=== PATIENT | male | born 1960 | race Caucasian/White ===

== ENCOUNTER 2018-07-09 10:59 | Emergency (ER) | payer OTHER, SELFPAY ==
[2018-07-09 11:55] VITALS: BP 133/83; PULSE 65; RESP 16; TEMP 36.8; O2SAT 97
[2018-07-09 12:08] VITALS: PULSE 62; RESP 10; O2SAT 98
[2018-07-09] MEDS: ALBUTEROL/IPRATROPIUM 3 ML AMPUL INH (12:08)
--- NOTE | 2018-07-09 12:42 | ED_ITS ---
HPI - SOB/Dyspnea General Chief Complaint: Shortness of Breath/Dyspnea Stated Complaint: hard time breathing Time Seen by Provider: 07/09/18 12:39 Source: patient Mode of arrival: ambulatory Limitations: no limitations History of Present Illness Patient is a 57-year-old male who presents with shortness of breath. His he states he has a history of asthma but did smoke for 29 years quitting 10 years ago. He was treated for asthma exacerbation about 3 weeks ago in [place] with his doctor, he was placed on a 5 day course of steroids. He said he usually feels improvement however this time he did not. He then moved up here and over the last 2-3 days has progressively gotten worse. He feels like his chest is tight he can't take a deep breath. He was just given a DuoNeb which he says has helped a lot. MD Complaint: shortness of breath and cough Context: recent illness Related Data Home Medications Medication Instructions Recorded Confirmed albuterol sulfate [Ventolin HFA] 2 puff INHALATION QID 07/09/18 07/09/18 Previous Rx's Medication Instructions Recorded doxycycline hyclate 100 mg PO BID #14 cap 07/09/18 prednisone 10 mg PO DAILY #30 tab 07/09/18 Review of Systems Review of Systems ROS Unobtainable: All systems reviewed & are unremarkable except as noted in HPI and below Constitutional Denies chills, Denies fever(s), Denies lethargy and Denies weakness Cardiovascular Denies chest pain, Denies irregular heart rhythm, Denies lightheadedness, Denies palpitations and Denies orthopnea Respiratory Reports as per HPI Gastrointestinal Gastrointestinal: Denies abdominal pain, Denies change in bowel habits, Denies diarrhea, Denies nausea and Denies vomiting Musculoskeletal Denies back pain, Denies muscle weakness, Denies numbness and Denies tingling Neurologic Denies numbness, Denies tingling and Denies weakness Endocrine Denies palpitations PFSH Medical History Asthma (Acute) Social History Smoking Status: Former smoker Tobacco: How many years used: 29 substance use type: does not use Social History Smoking Status: Former smoker Tobacco: How many years used: 29 substance use type: does not use Exam Initial Vital Signs Initial Vital Signs: Vital Signs Temperature 98.2 F 07/09/18 11:55 Pulse Rate 65 07/09/18 11:55 Respiratory Rate 16 07/09/18 11:55 Blood Pressure 133/83 07/09/18 11:55 Pulse Oximetry 97 07/09/18 11:55 GENERAL: Well-appearing, well-nourished and in no acute distress. HEENT: Head atraumatic,EOMI, pupils reactive, face symmetric, CARDIOVASCULAR: Regular rate and rhythm without murmurs, rubs or gallops. RESPIRATORY: The speaking without difficulty wheezing bilaterally no respiratory distress ABDOMEN: Soft, nontender. Normoactive bowel sounds all 4 quadrants. No guarding or rebound. EXTREMITIES: Normal range of motion, no clubbing or edema. Neurovascularly intact NEUROLOGICAL: Alert and oriented x4.Normal gait and speech. Cranial nerves II through XII grossly intact. SKIN: Warm, dry, no laceration, no petechiae, no rashes or lesions. Course Orders Ordered: ED Orders 07/09/18 12:57 Chest [XR chest 2V] Stat 07/09/18 13:23 B Type Natriuretic Peptide Stat Complete Blood Count AUTO DIFF Stat Comprehensive Metabolic Panel Stat Lipase Stat Troponin & CK Cardiac Panel Stat 07/09/18 14:28 EKG-12 Lead Routine Discontinued Medications Albuterol/Ipratropium (Duoneb) 3 ml INH NOW ONE Stop: 07/09/18 12:08 Last Admin: 07/09/18 12:08 Dose: 3 ml Methylprednisolone (Solu-Medrol 125 Mg Vial) 125 mg IV NOW ONE Stop: 07/09/18 12:59 Last Admin: 07/09/18 13:34 Dose: 125 mg Vital Signs - 8 hr 07/09/18 11:55 07/09/18 12:08 07/09/18 13:57 Temperature 98.2 F Pulse Rate 65 62 66 Respiratory Rate 16 10 L 18 Blood Pressure 133/83 Blood Pressure [Right Arm] 137/83 Pulse Oximetry 97 98 95 07/09/18 14:00 Temperature Pulse Rate 65 Respiratory Rate Blood Pressure Blood Pressure [Right Arm] 129/73 Pulse Oximetry 95 MDM - SOB/Dyspnea Lab Data Attestation: I reviewed the patient's lab results. Result diagrams: 07/09/18 13:23 07/09/18 13:23 Lab Results 07/09/18 07/09/18 Range/Units 13:23 13:23 WBC 6.9 (4.5-11.0) X10^3/uL RBC 5.39 (4.5-5.9) X10^6/uL Hgb 16.1 (13.5-17.5) g/dL Hct 48.1 (41-53) % MCV 89.1 (80-100) fL MCH 29.9 (26-34) PG MCHC 33.5 (30-36) % RDW 13.9 (11.6-14.8) % Plt Count 278 (150-400) X10^3/uL Neut % (Auto) 52.7 (50-75) % Lymph % (Auto) 32.0 (25-40) % [place] % (Auto) 9.9 (3-14) % Eos % (Auto) 4.7 H (2-4) % Baso % (Auto) 0.7 (0-2) % Neut # (Auto) 3700 (4182-4763) /uL Lymph # (Auto) 2200 (2051-1779) /uL [place] # (Auto) 700 (0-900) /uL Eos # (Auto) 300 (0-450) /uL Baso # (Auto) 0 (0-100) /uL Sodium 138 (137-145) mmol/L Potassium 4.2 (3.4-5.1) mmol/L Chloride 102 (98-107) mmol/L Carbon Dioxide 27 (22-32) mmol/L BUN 15 (9-20) mg/dL Creatinine 0.90 (0.66-1.25) mg/dL Estimated GFR > 60.0 (>60) mL/min BUN/Creatinine Ratio 16.7 (6-22) Glucose 105 H (70-100) mg/dL Calcium 9.2 (8.4-10.2) mg/dL Total Bilirubin 0.7 (0.2-1.3) mg/dL AST 23 (17-59) IU/L ALT 41 (21-72) IU/L Alkaline Phosphatase 99 (38-126) U/L Total Creatine Kinase 94 (55-170) U/L CK-MB (CK-2) TNP CK-MB (CK-2) Rel Index TNP Troponin I < 0.012 (0.01-0.034) ng/mL B-Natriuretic Peptide < 100 (<100) Total Protein 7.7 (6.3-8.2) g/dL Albumin 4.5 (3.5-5.0) g/dL Globulin 3.2 (1.7-4.1) g/dL Albumin/Globulin Ratio 1.4 (1.0-2.8) Lipase 165 (23-300) U/L Imaging Data Chest x-ray: Radiologist's impression: PROCEDURE: XR CHEST 2V INDICATIONS: shortness of breath TECHNIQUE: 2 views of the chest were acquired. COMPARISON: None. FINDINGS: Surgical changes and devices: None. Lungs and pleura: Lungs are clear. No pleural effusions or pneumothorax. Mediastinum: Mediastinal contours are normal. Heart size is normal. Bones and chest wall: No suspicious bony abnormalities. Soft tissues appear unremarkable. IMPRESSION: No acute disease Dictated by: Obinna Cardoza M.D. on 07/09/2018 at 14:09 ECG Data Attestation: I personally reviewed and interpreted this ECG as follows: Prior ECG tracings: not available for review Interpretation: Sinus rhythm rate [address] changes or T-wave inversions OK interval 162 MDM Narrative Medical decision making narrative: The patient's chest discomfort improved with bronchodilators. History of asthma. Patient previously on steroids. Unable to tell if it was Medrol Dosepak versus prednisone as but it was only for 4-5 days. Will put patient on a longer steroid taper along with antibiotics. Patient overall does not appear septic appears well feeling better. Seems to have improved significantly while in the ED. Discharge Plan Departure Patient Disposition: Home Clinical Impression: Acute exacerbation of chronic obstructive airways disease Discharge Date/Time: 07/09/18 15:01 Interventions: ED Discharge Assessment Last Done: 07/09/18 15:02 Instructions: DI for Acute Bronchitis Activity Restrictions/Additional Instructions: *You have been diagnosed with asthma exacerbation *What to do: Blood work and x-ray are reassuring today. No sign of pneumonia. *Continue to take medications as directed --> TRANSCRIBED TO [facility] Prednisone taper please take as directed Doxycycline 100 mg twice a day for 7 days Albuterol inhaler or nebulizer every 4 hr if needed for coughing or shortness of breath *Follow up with your primary care provider in 2-3 days *Return to ER if you should have increasing chest pain, shortness of breath or any new, worsening or concerning symptoms Prescriptions: New prednisone 10 mg tablet 10 mg PO DAILY Qty: 30 RF: 0 doxycycline hyclate 100 mg capsule 100 mg PO BID Qty: 14 RF: 0 No Action Ventolin HFA 90 mcg/actuation HFA aerosol inhaler 2 puff Inhalation QID RF: 0 Referrals: [facility] [Provider Group] [facility] [Provider Group] [facility] [Provider Group] [facility] [Provider Group]
--- NOTE | 2018-07-09 12:57 | DI.RAD.S_ITS ---
PROCEDURE: XR CHEST 2V INDICATIONS: shortness of breath TECHNIQUE: 2 views of the chest were acquired. COMPARISON: None. FINDINGS: Surgical changes and devices: None. Lungs and pleura: Lungs are clear. No pleural effusions or pneumothorax. Mediastinum: Mediastinal contours are normal. Heart size is normal. Bones and chest wall: No suspicious bony abnormalities. Soft tissues appear unremarkable. IMPRESSION: No acute disease Dictated by: Obinna Cardoza M.D. on 07/09/2018 at 14:09 Approved by: Obinna Cardoza M.D. on 07/09/2018 at 14:11
[2018-07-09 13:27] LABS: Add Manual Diff / Slide Review NO; Basophils Absolute Auto 0 /uL (0-100); Basophils Percent Auto 0.7 % (0-2); Eosinophils Absolute Auto 300 /uL (0-450); Eosinophils Percent Auto 4.7 % (2-4); Hematocrit 48.1 % (41-53); Hemoglobin 16.1 g/dL (13.5-17.5); Lymphocytes Absolute Auto 2200 /uL (1100-4500); Mean Corpuscular HGB Conc 33.5 % (30-36); Mean Corpuscular Hemoglobin 29.9 PG (26-34); Mean Corpuscular Volume 89.1 fL (80-100); Monocytes Absolute Auto 700 /uL (0-900); Monocytes Percent Auto 9.9 % (3-14); Neutrophils Absolute Auto 3700 /uL (1500-7000); Neutrophils Percent Auto 52.7 % (50-75); Platelet Count 278 X10^3/uL (150-400); Red Blood Cell Count 5.39 X10^6/uL (4.5-5.9); Red Cell Distribution Width 13.9 % (11.6-14.8); White Blood Cell Count 6.9 X10^3/uL (4.5-11.0)
[2018-07-09] MEDS: methylPREDNISolone 125 MG/2 ML VIAL IV (13:34)
[2018-07-09 13:40] LABS: Alanine Aminotransferase 41 IU/L (21-72); Albumin 4.5 g/dL (3.5-5.0); Albumin Globulin Ratio 1.4 (1.0-2.8); Alkaline Phosphatase 99 U/L (38-126); Aspartate Aminotransferase 23 IU/L (17-59); BUN Creatinine Ratio 16.7 (6-22); Bilirubin Total 0.7 mg/dL (0.2-1.3); Blood Urea Nitrogen 15 mg/dL (9-20); Calcium 9.2 mg/dL (8.4-10.2); Carbon Dioxide 27 mmol/L (22-32); Chloride 102 mmol/L (98-107); Creatine Kinase 94 U/L (55-170); Estimated Glomerular Filt Rate > 60.0 mL/min (>60); Globulin 3.2 g/dL (1.7-4.1); Glucose 105 mg/dL (70-100); HEMOLYSIS < 15 (0-50); Lipase 165 U/L (23-300); Potassium 4.2 mmol/L (3.4-5.1); Sodium 138 mmol/L (137-145); Total Protein 7.7 g/dL (6.3-8.2)
[2018-07-09 13:52] LABS: Troponin I < 0.012 ng/mL (0.01-0.034)
[2018-07-09 13:57] VITALS: BP 137/83; PULSE 66; RESP 18; O2SAT 95
[2018-07-09 14:00] VITALS: BP 129/73; PULSE 65; O2SAT 95
[2018-07-09 14:57] LABS: B Type Natriuretic Peptide < 100 (<100)
== END 2018-07-09 15:01 | disposition home or self-care (01) ==
PROVIDERS: Emergency Provider Emergency Medicine
DX: J44.1 Chronic obstructive pulmonary disease with (acute) exacerbation (principal); J45.901 Unspecified asthma with (acute) exacerbation
CPT/HCPCS: 36591; 71046; 80053; 82550; 83690; 83880; 84484; 85025; 93005; 94640; 96374; 99282; 99285; J2930

== ENCOUNTER → 2019-10-28 15:00 | Outpatient (CLI) | payer OTHER, SELFPAY ==
[2019-10-30 06:40] LABS: COVID19 Sendout Not Detected (Not Detect)
== END ==
PROVIDERS: Visit Provider Physician Assistant
DX: Z01.812 Encounter for preprocedural laboratory examination (principal)
CPT/HCPCS: 87635

== ENCOUNTER → 2020-03-09 10:42 | Outpatient (CLI) | payer OTHER, SELFPAY ==
--- NOTE | 2020-03-09 | DI.RAD.S_ITS ---
PROCEDURE: XR CERVICAL SPINE 2V OR 3V INDICATIONS: Spinal stenosis, cervical region TECHNIQUE: 2 view(s) of the cervical spine were acquired. COMPARISON: None. FINDINGS: Bones: No fractures or dislocations to the C7 level. The lateral masses of C1 appear intact on the odontoid view. No suspicious bony lesions. Patient is status post anterior fusion and discectomy from C4-C6. Soft tissues: No prevertebral soft tissue swelling. IMPRESSION: Postoperative change. No acute radiographic findings. Dictated by: Penny Gustafson M.D. on 03/09/2020 at 14:00 Approved by: Penny Gustafson M.D. on 03/09/2020 at 14:01
== END ==
PROVIDERS: PCP Student in an Organized Health Care Education/Training Program; Referring Provider Student in an Organized Health Care Education/Training Program; Visit Provider Neurological Surgery
DX: M48.02 Spinal stenosis, cervical region (principal); M47.12 Other spondylosis with myelopathy, cervical region; Z98.1 Arthrodesis status
CPT/HCPCS: 72040

== ENCOUNTER → 2020-06-08 12:48 | Outpatient (CLI) | payer OTHER, SELFPAY ==
--- NOTE | 2020-06-08 12:54 | DI.RAD.S_ITS ---
PROCEDURE: XR CERVICAL SPINE 4V OR 5V INDICATIONS: Other spondylosis with myelopathy, cervical region TECHNIQUE: 5 views of the cervical spine were acquired. COMPARISON: Merged With [facility], , XR CERVICAL SPINE 2V OR 3V, 03/09/2020, 11:16. FINDINGS: Bones: Postsurgical changes are again seen from C4 through C6 with unchanged alignment. Mild degenerative changes are seen at the C3-4 and C6-7 levels. There is limited range of motion on flexion-extension views without spondylolisthesis. No fractures or dislocations to the C7 level. Soft tissues: Prevertebral soft tissues are normal in thickness. IMPRESSION: Postsurgical changes again seen from C4 through C6. Mild spondylosis. Mildly limited cervical range of motion. Dictated by: Eric Gray M.D. on 06/08/2020 at 16:02 Approved by: Eric Gray M.D. on 06/08/2020 at 16:06
== END ==
PROVIDERS: Family Provider Student in an Organized Health Care Education/Training Program; PCP Student in an Organized Health Care Education/Training Program; Referring Provider Neurological Surgery; Visit Provider Neurological Surgery
DX: M47.12 Other spondylosis with myelopathy, cervical region (principal)
CPT/HCPCS: 72050

== ENCOUNTER → 2020-06-29 10:23 | Outpatient (CLI) | payer OTHER, SELFPAY ==
[2020-06-29 12:48] LABS: COVID19 -Nasal RAPID Negative (Negative)
== END ==
PROVIDERS: Family Provider Student in an Organized Health Care Education/Training Program; PCP Student in an Organized Health Care Education/Training Program; Visit Provider Surgery
DX: Z20.822 Contact with and (suspected) exposure to COVID-19 (principal)
CPT/HCPCS: 87635; C9803

== ENCOUNTER 2020-06-30 09:57 | Day surgery (SDC) | payer OTHER, SELFPAY ==
[2020-06-30] VITALS (7 sets, daily range): BP systolic 115–151; BP diastolic 71–88; PULSE 72–86; RESP 8–16; TEMP 36.8–37.1; O2SAT 91–98; BMI 27.8
[2020-06-30] MEDS: LACTATED RINGERS 1,000 ML 100 ML IV (10:26)
[2020-06-30] MEDS: ACETAMINOPHEN 325 MG TABLET 975 MG PO (11:15)
--- NOTE | 2020-06-30 11:35 | PM.PREOP ---
Pre-operative Note Interval Note History & Physical reviewed/Exam performed by Physician: Yes Changes to H&P: No
[2020-06-30] MEDS: CEFAZOLIN 2 GM/100 ML FROZ.PIGGY IV (11:48)
--- NOTE | 2020-06-30 12:02 | SUR.OPER ---
Supine on padded OR bed, head on pillow, arms secured on padded arm boards at <90 degrees abduction, legs uncrossed, safety belt at thigh, tape over blanket over lower legs.
[2020-06-30] MEDS: BUPIVACAINE 0.25% (PF) VIAL 30 ML INJ (12:08)
--- NOTE | 2020-06-30 12:44 | P.OP_ITS ---
Operative Date/Time/Diagnoses Date of procedure: 06/30/20 Time of procedure: 12:44 Pre-op diagnosis: Reducible umbilical hernia Post-op diagnosis: same Procedure & Clinicians Procedure: Open umbilical hernia repair with mesh Same procedure as scheduled: Yes Indications: 59-year-old man with a symptomatic reducible umbilical hernia Surgeon: Nahum Miranda Click Yes if Unassisted: Yes Anesthesia Type: General Operative Notes Findings: Incarcerated omentum within the umbilical sac Specimen(s): none sent Estimated Blood Loss (mL): 20 Procedure in detail: Patient was brought to the operating room placed supine on the table. Bilateral lower extremity compression devices were applied. General anesthesia was induced and they were intubated with an endotracheal tube. They received 2 g of Ancef prior to skin incision. They were prepped and draped in sterile fashion. A time-out was performed. A curvilinear incision was made inferior to the umbilicus. The subcutaneous tissues were divided. The umbilical hernia was identified and the hernia sac was dissected off the umbilical skin and circumferentially off of the fascia defect. The hernia sac was sharply opened and contained viable omentum. The omentum was reduced back into the abdomen. Using blunt dissection I carefully carefully freed the hernia sac from beneath the fascia defect in order to accomodate the mesh. The fascia defect was 1.5 cm in maximal diameter. A Bard Ventralex ST hernia patch 3 inches was inserted beneath the fascia defect and above the peritoneum in a sublay position. The mesh was anchored in multiple locations using Ethibond suture to the fascia and the fascial defect was closed over the mesh. The umbi lical skin was tacked to the subcutaneous tissues and then the remainder of the subcutaneous tissues were reapproximated using 3 0 Vicry,l skin closed with 4 0 Monocryl followed by the application of Dermabond and Steri-Strips. Sponge instrument count at the end of the operation was correct. Patient tolerated procedure well was extubated and transferred to postoperative care unit in stable condition. Complications: none Post-operative Condition: stable Disposition: same day surgery
[2020-06-30] MEDS: hydrOXYzine 50 MG/ML INJ 25 MG IM (13:10)
[2020-06-30] MEDS: OXYCODONE IR 5 MG TABLET PO ×2 (13:11→13:44)
== END 2020-06-30 13:55 | disposition home or self-care (01) ==
PROVIDERS: Family Provider Student in an Organized Health Care Education/Training Program; PCP Student in an Organized Health Care Education/Training Program; Referring Provider Surgery; Visit Provider Surgery
PROC: (CPT 49585; principal; 2020-06-30 11:15)
DX: K42.9 Umbilical hernia without obstruction or gangrene (principal); J45.909 Unspecified asthma, uncomplicated
CPT/HCPCS: 49585; C1781; J0690; J1100; J1885; J2250; J2405; J2704; J3010; J3410

== ENCOUNTER 2020-09-01 08:15 | Outpatient (RCR) | payer OTHER, SELFPAY ==
--- NOTE | 2020-05-19 13:00 | PT.OPPOC ---
Physical, Occupational & Speech Therapy At [facility] Current Diagnoses Other spondylosis with myelopathy, cervical region (05/19/20) Cervicalgia (05/19/20) Visit Care Team Role Provider Type Sigrid Gill MD Family Provider Physician Primary Care Provider Specialty: Family Practice Address: [address] [place] [address], [address], [place], [address] Email: [email or web address] Hira Dawn MD Attending Provider Non-Staff Referring Provider Specialty: Neurosurgery Address: [address] [place] [address], Suite [facility], [place], [address] Email: Plan Of Care PT-OP-T Assessment and Plan Start: 05/19/20 09:56 Freq: Status: Active Protocol: Document 05/19/20 12:45 AMB (Rec: 05/24/20 12:54 AMB [email or web address]) Physical Therapy Assessment Rehab Potential Rehabilitation Potential Good Evaluation Complexity Number of Personal Factors/Comorbidities 3 or More Number of Body Systems Impaired 4 or More Clinical Presentation at Evaluation Evolving Impairments Impairments Activity Tolerance,Functional Activities,Functional Mobility ,Pain,Posture,ROM Goals Three Impairment HEP Short Term Goal (STG) Hira will be independent and consistent with a HEP for cervical ROM and stability. STG Duration 4 weeks Two Impairment Functional activities Short Term Goal (STG) Hira will read for 30 minutes with 3/10 pain or less. STG Duration 4 weeks Custodial Goal (LTG) Hira will drive for 30 minutes wiht 3/10 pain or less . LTG Duration 8 weeks One Impairment Cervical ROM Short Term Goal (STG) Hira will improve his cervical extension to 50 degrees without an increase in baseline pain. STG Duration 4 weeks Custodial Goal (LTG) Hira will improve his cervical rotation to 60 degrees bilaterally without an increase in baseline pain. LTG Duration 8 weeks Assessment Summary Assessment Hira attends pt s/p ACDF C4-6 with continuing bilateral arm numbness and tingling that goes down to his forearms. He is on disability, and continues to have difficulty looking up, driving, and reading. 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 He will benefit from physical therapy to improve his ROM, decrease his pain, and improve his ability to tolerate extended positioning with his arms elevated. Physical Therapy Plan Frequency and Duration Frequency of Treatment 2x/Week Duration of Treatment 8 weeks Plan of Care Start Date 05/19/20 Plan of Care End Date 07/14/20 Therapeutic Interventions Therapeutic Interventions Home Exercise Program,Manual Therapy,Neuromuscular Re- education,Self-Care/Home Management,Therapeutic Activities,Therapeutic Exercises Modalities Cold Pack/Ice Massage,Electric Stimulation,Hot Packs Next Visit Focus/Plan Next Note Type Treatment Note Next Visit Plan Begin instruction in HEP Plan of Care Dates Plan of Care Start Date 05/19/20 Plan of Care End Date 07/14/20 Electronically Signed by: Mery Feldman, PT 05/24/20 1300 Please Sign and Return: I have reviewed this Plan of Care and certify that the skilled therapy services above are required to meet the patient?s needs. Physician Signature Date Printed Name and Credentials Clinical Instructor Signature Printed Name and Credentials
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
--- NOTE | 2020-05-27 16:06 | PT.OTN ---
Current Diagnoses Other spondylosis with myelopathy, cervical region (05/27/20) Cervicalgia (05/27/20) Physical Therapy Treatment Note PT-OP-A Visit Information Start: 05/19/20 09:56 Freq: Status: Active Protocol: Document 05/27/20 13:30 AMB (Rec: 05/27/20 14:08 AMB [id number]) Out-Patient Physical Therapy Visit Information Visit Information Visit Type Treatment Note Visit Start Time 13:30 Visit Stop Time 14:15 Total Visit Minutes 45 Visit Number 3 PT-OP-B Current Condition Start: 05/19/20 09:56 Freq: Status: Active Protocol: Document 05/19/20 12:43 AMB (Rec: 05/19/20 12:57 AMB [id number]) Current Condition History of Current Condition Onset Date 01/01/20 Current Complaints neck pain with n/t in B arms History of Current Condition Hira attends PT s/p ACDF C4-5 and C5-6 on 01/01/20. 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 On disability. Concerned about TOS numbness/tingling bilaterally worse since surgery- doesn't note to be dropping things- he has been seeing a chiropractor who told him about TOS. Taking oxycodone for pain: looking up, reading, driving all increase sx. Also reports whole body twitching- intermittently. Treatment Goals Patient/Caregiver Goals Be able to read, drive without neck pain/ numbness tingling down bilateral arms Prior Functional Status Baseline Function- ADL's Modified Independent Baseline Function- Mobility Modified Independent Current Functional Impairments (Reported) Functional Limitations- ADL's Difficulty reading due to neck pain/ arm tingling (looking down holding arms up) Personal Factors Other Personal Factors That May Effect Hx back pain, hernia, Therapy/Recovery concussion, memory loss PT-OP-C Subjective Start: 05/19/20 09:56 Freq: Status: Active Protocol: Document 05/27/20 13:30 AMB (Rec: 05/27/20 14:08 AMB [id number]) OP-PT Subjective Patient Comments Patient Comments Pt reports he was sore after last appt for about a few hours, but nothing bad. PT-OP-K Range of Motion Start: 05/19/20 09:56 Freq: Status: Active Protocol: Document 05/19/20 12:45 AMB (Rec: 05/19/20 13:35 AMB [id number]) Cervical Spine Range of Motion Cervical Spine Active Degrees Testing Position Sitting Flexion 55 Extension 32 Rotation Left 40 Rotation Right 35 Lateral Flexion Left 30 Lateral Flexion Right 25 ROM Limitations Pain PT-OP-M Strength Start: 05/19/20 09:56 Freq: Status: Active Protocol: Document 05/19/20 12:45 AMB (Rec: 05/24/20 12:54 AMB [id number]) Hand Spool Tender/Pinch Strength Hand Dominance Hand Dominance Right Hand Strength Right Spool Tender (lbs) 100 Left Spool Tender (lbs) 120 PT-OP-Q Treatments Start: 05/19/20 09:56 Freq: Status: Active Protocol: Document 05/27/20 13:30 AMB (Rec: 05/27/20 14:08 AMB [id number]) Cardio Equipment Upper Body Ergometer (UBE) Duration (Minutes) 6 Other fwd/backward Therapeutic Exercises Supine Exercises 3 Supine Exercise Name horizontal adduction Resistance 5# Reps/Minutes 20 2 Supine Exercise Name pec stretch with 5# weight Reps/Minutes 30x3 1 Supine Exercise Name pec stretch Reps/Minutes 20x2 Comments modified to avoid tingling- 45 deg abd Standing Exercises 2 Standing Exercise Name shoulder extension Resistance #3 t band Reps/Minutes 2x10 Comments vc posture 1 Standing Exercise Name rows Resistance #3 tband Reps/Minutes 2x10 Other Exercises 2 Other Exercise Name mary pose Reps/Minutes 30x2 1 Other Exercise Name quadruped cervical flex/ext AROM PT-OP-T Assessment and Plan Start: 05/19/20 09:56 Freq: Status: Active Protocol: Document 05/27/20 13:30 AMB (Rec: 05/27/20 14:08 AMB [id number]) Physical Therapy Assessment Goals Three Impairment HEP Short Term Goal (STG) Hira will be independent and consistent with a HEP for cervical ROM and stability. STG Duration 4 weeks Two Impairment Functional activities Short Term Goal (STG) Hira will read for 30 minutes with 3/10 pain or less. STG Duration 4 weeks Mobile Ui/Ux Designer Goal (LTG) Hira will drive for 30 minutes wiht 3/10 pain or less . LTG Duration 8 weeks One Impairment Cervical ROM Short Term Goal (STG) Hira will improve his cervical extension to 50 degrees without an increase in baseline pain. STG Duration 4 weeks Mobile Ui/Ux Designer Goal (LTG) Hira will improve his cervical rotation to 60 degrees bilaterally without an increase in baseline pain. LTG Duration 8 weeks Assessment Summary Assessment Hira tolerated prone exercises better today, but did have some tingling. Tingling with AP glide of GH joint, so careful with that with pec stretching. Physical Therapy Plan Next Visit Focus/Plan Next Note Type Treatment Note Next Visit Plan Begin instruction in HEP
--- NOTE | 2020-06-02 10:05 | PT.OTN ---
Current Diagnoses Other spondylosis with myelopathy, cervical region (06/02/20) Cervicalgia (06/02/20) Physical Therapy Treatment Note PT-OP-A Visit Information Start: 05/19/20 09:56 Freq: Status: Active Protocol: Document 06/02/20 08:15 AMB (Rec: 06/02/20 10:05 AMB [id number]) Out-Patient Physical Therapy Visit Information Visit Information Visit Type Treatment Note Visit Start Time 08:15 Visit Stop Time 09:00 Total Visit Minutes 45 Visit Number 4 PT-OP-B Current Condition Start: 05/19/20 09:56 Freq: Status: Active Protocol: Document 05/19/20 12:43 AMB (Rec: 05/19/20 12:57 AMB [id number]) Current Condition History of Current Condition Onset Date 01/01/20 Current Complaints neck pain with n/t in B arms History of Current Condition Hira attends PT s/p ACDF C4-5 and C5-6 on 01/01/20. 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 On disability. Concerned about TOS numbness/tingling bilaterally worse since surgery- doesn't note to be dropping things- he has been seeing a chiropractor who told him about TOS. Taking oxycodone for pain: looking up, reading, driving all increase sx. Also reports whole body twitching- intermittently. Treatment Goals Patient/Caregiver Goals Be able to read, drive without neck pain/ numbness tingling down bilateral arms Prior Functional Status Baseline Function- ADL's Modified Independent Baseline Function- Mobility Modified Independent Current Functional Impairments (Reported) Functional Limitations- ADL's Difficulty reading due to neck pain/ arm tingling (looking down holding arms up) Personal Factors Other Personal Factors That May Effect Hx back pain, hernia, Therapy/Recovery concussion, memory loss PT-OP-C Subjective Start: 05/19/20 09:56 Freq: Status: Active Protocol: Document 06/02/20 08:15 AMB (Rec: 06/02/20 10:05 AMB [id number]) OP-PT Subjective Patient Comments Patient Comments Pt reports soreness in shoulders s/p stretching PT-OP-K Range of Motion Start: 05/19/20 09:56 Freq: Status: Active Protocol: Document 05/19/20 12:45 AMB (Rec: 05/19/20 13:35 AMB [id number]) Cervical Spine Range of Motion Cervical Spine Active Degrees Testing Position Sitting Flexion 55 Extension 32 Rotation Left 40 Rotation Right 35 Lateral Flexion Left 30 Lateral Flexion Right 25 ROM Limitations Pain PT-OP-M Strength Start: 05/19/20 09:56 Freq: Status: Active Protocol: Document 05/19/20 12:45 AMB (Rec: 05/24/20 12:54 AMB [email or web address]) Hand Fiberglass Boat Finisher/Pinch Strength Hand Dominance Hand Dominance Right Hand Strength Right Fiberglass Boat Finisher (lbs) 100 Left Fiberglass Boat Finisher (lbs) 120 PT-OP-Q Treatments Start: 05/19/20 09:56 Freq: Status: Active Protocol: Document 06/02/20 08:15 AMB (Rec: 06/02/20 10:05 AMB [id number]) Cardio Equipment Upper Body Ergometer (UBE) Duration (Minutes) 6 Other fwd/backward Therapeutic Exercises Supine Exercises 4 Supine Exercise Name shoulder AAROM Reps/Minutes 10 Comments with wand, flexion, abduct 1 Supine Exercise Name pec stretch Reps/Minutes 20x2 Comments modified to avoid tingling- 45 deg abd Standing Exercises 2 Standing Exercise Name shoulder extension Resistance #3 t band Reps/Minutes 2x10 Comments vc posture 1 Standing Exercise Name rows Resistance #3 tband Reps/Minutes 2x10 Manual Therapy Treatment Soft Tissue Mobilization 2 Body Location pec minor B Intensity/Depth Moderate Body Position Hooklying PT-OP-T Assessment and Plan Start: 05/19/20 09:56 Freq: Status: Active Protocol: Document 06/02/20 08:15 AMB (Rec: 06/02/20 10:05 AMB [id number]) Physical Therapy Assessment Goals Three Impairment HEP Short Term Goal (STG) Hira will be independent and consistent with a HEP for cervical ROM and stability. STG Duration 4 weeks Two Impairment Functional activities Short Term Goal (STG) Hira will read for 30 minutes with 3/10 pain or less. STG Duration 4 weeks Piecer Goal (LTG) Hira will drive for 30 minutes wiht 3/10 pain or less . LTG Duration 8 weeks One Impairment Cervical ROM Short Term Goal (STG) Hira will improve his cervical extension to 50 degrees without an increase in baseline pain. STG Duration 4 weeks Piecer Goal (LTG) Hira will improve his cervical rotation to 60 degrees bilaterally without an increase in baseline pain. LTG Duration 8 weeks Assessment Summary Assessment Pt continues to have tingling in arms with overhead movement and pec stretching, but overall feels that it is decreasing since starting PT. Physical Therapy Plan Next Visit Focus/Plan Next Note Type Treatment Note Next Visit Plan Progress HEP- pt currently doing cervical stretching ( gently). Work on adding pec stretch but modifying to avoid increased tingling sx.
--- NOTE | 2020-06-04 09:15 | PT.OTN ---
Current Diagnoses Other spondylosis with myelopathy, cervical region (06/04/20) Cervicalgia (06/04/20) Physical Therapy Treatment Note PT-OP-A Visit Information Start: 05/19/20 09:56 Freq: Status: Active Protocol: Document 06/04/20 08:25 LD (Rec: 06/04/20 11:38 LD [id number]) Out-Patient Physical Therapy Visit Information Visit Information Visit Type Treatment Note Visit Note DEANNA Banks co-led treatment with JESSE Jarvis. Visit Start Time 08:22 Visit Stop Time 09:15 Total Visit Minutes 53 Visit Number 5 Number of TRUCK DRIVER SUPERVISOR Visits 1 PT-OP-B Current Condition Start: 05/19/20 09:56 Freq: Status: Active Protocol: Document 05/19/20 12:43 AMB (Rec: 05/19/20 12:57 AMB [id number]) Current Condition History of Current Condition Onset Date 01/01/20 Current Complaints neck pain with n/t in B arms History of Current Condition Hira attends PT s/p ACDF C4-5 and C5-6 on 01/01/20. 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 On disability. Concerned about TOS numbness/tingling bilaterally worse since surgery- doesn't note to be dropping things- he has been seeing a chiropractor who told him about TOS. Taking oxycodone for pain: looking up, reading, driving all increase sx. Also reports whole body twitching- intermittently. Treatment Goals Patient/Caregiver Goals Be able to read, drive without neck pain/ numbness tingling down bilateral arms Prior Functional Status Baseline Function- ADL's Modified Independent Baseline Function- Mobility Modified Independent Current Functional Impairments (Reported) Functional Limitations- ADL's Difficulty reading due to neck pain/ arm tingling (looking down holding arms up) Personal Factors Other Personal Factors That May Effect Hx back pain, hernia, Therapy/Recovery concussion, memory loss PT-OP-C Subjective Start: 05/19/20 09:56 Freq: Status: Active Protocol: Document 06/04/20 08:25 LD (Rec: 06/04/20 11:38 LD [id number]) OP-PT Subjective Patient Comments Patient Comments Pt reports 'feels great' after last tx. Stated pain level 5/ 10 today. PT-OP-K Range of Motion Start: 05/19/20 09:56 Freq: Status: Active Protocol: Document 05/19/20 12:45 AMB (Rec: 05/19/20 13:35 AMB [id number]) Cervical Spine Range of Motion Cervical Spine Active Degrees Testing Position Sitting Flexion 55 Extension 32 Rotation Left 40 Rotation Right 35 Lateral Flexion Left 30 Lateral Flexion Right 25 ROM Limitations Pain PT-OP-M Strength Start: 05/19/20 09:56 Freq: Status: Active Protocol: Document 05/19/20 12:45 AMB (Rec: 05/24/20 12:54 AMB [email or web address]) Hand Stunt Performer/Pinch Strength Hand Dominance Hand Dominance Right Hand Strength Right Stunt Performer (lbs) 100 Left Stunt Performer (lbs) 120 PT-OP-Q Treatments Start: 05/19/20 09:56 Freq: Status: Active Protocol: Document 06/04/20 08:25 LD (Rec: 06/04/20 11:38 LD [id number]) Cardio Equipment Upper Body Ergometer (UBE) Duration (Minutes) 6 Other fwd/backward Therapeutic Exercises Supine Exercises 4 Supine Exercise Name flexion, abduct w/ B knees bent 90 deg Resistance shoulder AAROM Equipment Used wand Reps/Minutes 10 Comments Cued for thoracic/ lumbar ext toward table/ upper TA Standing Exercises Shoulder IR/ER Standing Exercise Name shoulder IR/ER Resistance #3 t band Reps/Minutes 2x10 Comments cued for scap retraction & depression 2 Standing Exercise Name shoulder extension Resistance #3 t band Reps/Minutes 2x10 Comments vc posture, scap depression, chin tuck 1 Standing Exercise Name rows Resistance #3 tband Reps/Minutes 2x10 Comments cued for 90/90 w/ elbow at sides, scap depression Other Exercises Theracane/ Self STMs Other Exercise Name Theracane/self stm (posterior CS, scapular complex mm) Equipment Used theracane Reps/Minutes 5 min Comments Educated and performed the use of theracane. Provided education on self STM Manual Therapy Treatment Soft Tissue Mobilization 2 Body Location pec minor B Intensity/Depth Moderate Body Position Hooklying Comments Some tingling present. 1 Body Location sub occipitals, scalenes, scar , pec aaron/ min, SCM Mobilization Type Myofascial Release Intensity/Depth Moderate Body Position Hooklying PT-OP-T Assessment and Plan Start: 05/19/20 09:56 Freq: Status: Active Protocol: Document 06/04/20 08:25 LD (Rec: 06/04/20 11:38 LD [id number]) Physical Therapy Assessment Goals Three Impairment HEP Short Term Goal (STG) Hira will be independent and consistent with a HEP for cervical ROM and stability. STG Duration 4 weeks Two Impairment Functional activities Short Term Goal (STG) Hira will read for 30 minutes with 3/10 pain or less. STG Duration 4 weeks Snf Goal (LTG) Hira will drive for 30 minutes wiht 3/10 pain or less . LTG Duration 8 weeks One Impairment Cervical ROM Short Term Goal (STG) Hira will improve his cervical extension to 50 degrees without an increase in baseline pain. STG Duration 4 weeks Body Artist Goal (LTG) Hira will improve his cervical rotation to 60 degrees bilaterally without an increase in baseline pain. LTG Duration 8 weeks Assessment Summary Assessment Pt demonstrated a good knowledge of exercises, prompting verbal cues on proper posture. Continues to have some tingling sensation into hand and tenderness w/ pec minor but dissipates when stop, is feeling that PT is beneficial. Physical Therapy Plan Frequency and Duration Frequency of Treatment 2x/Week Duration of Treatment 8 weeks Plan of Care Start Date 05/19/20 Plan of Care End Date 07/14/20 Therapeutic Interventions Therapeutic Interventions Home Exercise Program,Manual Therapy,Neuromuscular Re- education,Self-Care/Home Management,Therapeutic Activities,Therapeutic Exercises Modalities Cold Pack/Ice Massage,Electric Stimulation,Hot Packs Next Visit Focus/Plan Next Note Type Treatment Note Next Visit Plan Reassess response to HEP. Continue per POC: cervical ROM , progress HEP.
--- NOTE | 2020-06-09 10:40 | PT.OTN ---
Current Diagnoses Other spondylosis with myelopathy, cervical region (06/09/20) Cervicalgia (06/09/20) Physical Therapy Treatment Note PT-OP-A Visit Information Start: 05/19/20 09:56 Freq: Status: Active Protocol: Document 06/09/20 08:15 AMB (Rec: 06/09/20 08:33 AMB [id number]) Out-Patient Physical Therapy Visit Information Visit Information Visit Type Treatment Note Visit Start Time 08:15 Visit Stop Time 09:00 Total Visit Minutes 45 Visit Number 6 Number of REGULATORY INTERNSHIP Visits 0 PT-OP-B Current Condition Start: 05/19/20 09:56 Freq: Status: Active Protocol: Document 05/19/20 12:43 AMB (Rec: 05/19/20 12:57 AMB [id number]) Current Condition History of Current Condition Onset Date 01/01/20 Current Complaints neck pain with n/t in B arms History of Current Condition Hira attends PT s/p ACDF C4-5 and C5-6 on 01/01/20. 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 On disability. Concerned about TOS numbness/tingling bilaterally worse since surgery- doesn't note to be dropping things- he has been seeing a chiropractor who told him about TOS. Taking oxycodone for pain: looking up, reading, driving all increase sx. Also reports whole body twitching- intermittently. Treatment Goals Patient/Caregiver Goals Be able to read, drive without neck pain/ numbness tingling down bilateral arms Prior Functional Status Baseline Function- ADL's Modified Independent Baseline Function- Mobility Modified Independent Current Functional Impairments (Reported) Functional Limitations- ADL's Difficulty reading due to neck pain/ arm tingling (looking down holding arms up) Personal Factors Other Personal Factors That May Effect Hx back pain, hernia, Therapy/Recovery concussion, memory loss PT-OP-C Subjective Start: 05/19/20 09:56 Freq: Status: Active Protocol: Document 06/09/20 08:15 AMB (Rec: 06/09/20 08:33 AMB [id number]) OP-PT Subjective Patient Comments Patient Comments 2/10 pain today PT-OP-K Range of Motion Start: 05/19/20 09:56 Freq: Status: Active Protocol: Document 05/19/20 12:45 AMB (Rec: 05/19/20 13:35 AMB [id number]) Cervical Spine Range of Motion Cervical Spine Active Degrees Testing Position Sitting Flexion 55 Extension 32 Rotation Left 40 Rotation Right 35 Lateral Flexion Left 30 Lateral Flexion Right 25 ROM Limitations Pain PT-OP-M Strength Start: 05/19/20 09:56 Freq: Status: Active Protocol: Document 05/19/20 12:45 AMB (Rec: 05/24/20 12:54 AMB [email or web address]) Hand Bessemer Converter Blower/Pinch Strength Hand Dominance Hand Dominance Right Hand Strength Right Bessemer Converter Blower (lbs) 100 Left [place]essemer Converter Blower (lbs) 120 PT-OP-Q Treatments Start: 05/19/20 09:56 Freq: Status: Active Protocol: Document 06/09/20 08:15 AMB (Rec: 06/09/20 10:38 AMB [id number]) Cardio Equipment Upper Body Ergometer (UBE) Duration (Minutes) 6 Other fwd/backward Therapeutic Exercises Supine Exercises 4 Supine Exercise Name flexion, abduct w/ B knees bent 90 deg Resistance shoulder AAROM Equipment Used wand Reps/Minutes 10 Comments Cued for thoracic/ lumbar ext toward table/ upper TA 1 Supine Exercise Name pec stretch Reps/Minutes 20x2 Comments modified to avoid tingling- 45 deg abd Standing Exercises 2 Standing Exercise Name shoulder extension Resistance #3 t band Reps/Minutes 2x10 Comments vc posture, scap depression, chin tuck 1 Standing Exercise Name rows Resistance #3 tband Reps/Minutes 2x10 Comments cued for 90/90 w/ elbow at sides, scap depression Other Exercises 1 Other Exercise Name quadruped UE flexion Equipment Used 2# Reps/Minutes 10 Manual Therapy Treatment Soft Tissue Mobilization 2 Body Location pec minor B Intensity/Depth Moderate Body Position Hooklying 1 Body Location sub occipitals,, scar, Mobilization Type Myofascial Release Intensity/Depth Moderate Body Position Hooklying PT-OP-T Assessment and Plan Start: 05/19/20 09:56 Freq: Status: Active Protocol: Document 06/09/20 08:15 AMB (Rec: 06/09/20 08:33 AMB [id number]) Physical Therapy Assessment Assessment Summary Assessment Added 2# weight to quadruped exercises and pt did feel more muscle tension with this. Did not feel as much tingling with pec stretches today. Pt was stiff with cervical rotation after treatment today . Physical Therapy Plan Next Visit Focus/Plan Next Note Type Treatment Note Next Visit Plan Reassess response to HEP. Continue per POC: cervical ROM , progress HEP.
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
--- NOTE | 2020-08-04 16:27 | PT.OPPOC ---
Physical, Occupational & Speech Therapy At [facility] Current Diagnoses Other spondylosis with myelopathy, cervical region (08/04/20) Cervicalgia (08/04/20) Visit Care Team Role Provider Type Sigrid Gill MD Family Provider Physician Primary Care Provider Specialty: Family Practice Address: [address] [place] [address], [address], [place], [address] Email: [email or web address] Hira Dawn MD Attending Provider Non-Staff Referring Provider Specialty: Neurosurgery Address: [address] [place] [address], Suite [facility], [place], [address] Email: Plan Of Care PT-OP-T Assessment and Plan Start: 05/19/20 09:56 Freq: Status: Active Protocol: Document 08/04/20 08:04 AMB (Rec: 08/04/20 08:06 AMB [id number]) Physical Therapy Assessment Goals Three Impairment HEP Short Term Goal (STG) Hira will be independent and consistent with a HEP for cervical ROM and stability. STG Duration 4 weeks Two Impairment Functional activities Short Term Goal (STG) Hira will read for 30 minutes with 3/10 pain or less. STG Duration MET Ammonium Nitrate Crystallizer Goal (LTG) Hira will drive for 30 minutes wiht 3/10 pain or less . LTG Duration MET One Impairment Cervical ROM Short Term Goal (STG) Hira will improve his cervical extension to 50 degrees without an increase in baseline pain. 4/6: NOT YET MET STG Duration 4 weeks Ammonium Nitrate Crystallizer Goal (LTG) Hira will improve his cervical rotation to 60 degrees bilaterally without an increase in baseline pain. 4 /6: NOT YET MET LTG Duration 8 weeks Assessment Summary Assessment Hira returns to physical therapy after umbilical hernia surgery. Reports post op pain has resolved well. Reports numbness in hands has resolved for the time being with acupucture. Cervical ROM was tight at beginning of session, improved at end of session. Pt reports pain has improved, but tightness of cervical ROM continues. Physical Therapy Plan Frequency and Duration Frequency of Treatment 2x/Week Duration of Treatment 6 weeks Plan of Care Start Date 08/04/20 Plan of Care End Date 09/15/20 Therapeutic Interventions Therapeutic Interventions Home Exercise Program,Manual Therapy,Neuromuscular Re- education,Self-Care/Home Management,Therapeutic Activities,Therapeutic Exercises Modalities Cold Pack/Ice Massage,Electric Stimulation,Hot Packs Next Visit Focus/Plan Next Note Type Treatment Note Next Visit Plan Continue to work to progress cervical ROM, follow up on how overhead work went Plan of Care Dates Plan of Care Start Date 08/04/20 Plan of Care End Date 09/15/20 Electronically Signed by: Mery Feldman, PT 08/04/20 [id number] Please Sign and Return: I have reviewed this Plan of Care and certify that the skilled therapy services above are required to meet the patient?s needs. Physician Signature Date Printed Name and Credentials Clinical Instructor Signature Printed Name and Credentials
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
--- NOTE | 2020-09-04 08:39 | PT-OP ANOTE ---
Pt no showed appt, this is his second no show
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
== END 2020-09-04 11:02 | disposition home or self-care (01) ==
LOC: PHYS 08:15
PROVIDERS: Family Provider Student in an Organized Health Care Education/Training Program; PCP Student in an Organized Health Care Education/Training Program; Referring Provider Neurological Surgery; Visit Provider Neurological Surgery
DX: M47.12 Other spondylosis with myelopathy, cervical region (principal); M54.2 Cervicalgia
CPT/HCPCS: 97110; 97140; 97162; 97530

== ENCOUNTER → 2020-09-23 08:25 | Outpatient (CLI) | payer OTHER, SELFPAY ==
[2020-09-23 11:25] LABS: COVID19 -Nasal RAPID Negative (Negative)
== END ==
PROVIDERS: Family Provider Student in an Organized Health Care Education/Training Program; PCP Student in an Organized Health Care Education/Training Program; Visit Provider Physician Assistant
DX: Z01.812 Encounter for preprocedural laboratory examination (principal); Z20.822 Contact with and (suspected) exposure to COVID-19
CPT/HCPCS: 87635; C9803

== ENCOUNTER 2020-09-25 13:27 | Day surgery (SDC) | payer OTHER, SELFPAY ==
--- NOTE | 2020-09-25 | PATH_ITS ---
[facility] Accession Number: [id number] . 01 Material submitted: . PART A: sigmoid colon - SIGMOID COLON POLYP-6MM PART B: sigmoid colon - SIGMOID COLON POLYPS- 4MM X2 PART C: sigmoid colon - SIGMOID COLON POLYP-6MM PART D: sigmoid colon - SIGMOID COLON POLYP- 4MM . 02 Diagnosis: A. Sigmoid Colon Polyp - 6 mm: Portions of tubular adenoma x2. Superficial portions of colorectal mucosa x3 with no significant histomorphologic abnormality. . B. Sigmoid Colon Polyps - 4 mm x2: Portions of tubular adenoma x4. . C. Sigmoid Colon Polyp - 6 mm: Tubular adenoma. . D. Sigmoid Colon Polyp - 4 mm: Tubular adenoma. [facility] 09/30/2020 [facility]7 Local . 02 Electronically signed: . Sara Blair MD, Pathologist NPI- [id number] . 01 Gross description: . Part A: SIGMOID COLON POLYP-6MM: Received in formalin are multiple fragment(s) of brennan, soft tissue measuring 2.2 x 0.3 x 0.3 cm in aggregate submitted entirely in 1 cassette(s) Part B: SIGMOID COLON POLYPS- 4MM X2: Received in formalin are multiple fragment(s) of brennan, soft tissue measuring 0.7 x 0.4 x 0.2 cm in aggregate submitted entirely in 1 cassette(s) Part C: SIGMOID COLON POLYP-6MM: Received in formalin is 1 fragment(s) of brennan, soft tissue measuring 0.6 x 0.6 x 0.5 cm which is bisected and submitted entirely in 1 cassette(s) Part D: SIGMOID COLON POLYP- 4MM: Received in formalin is 1 fragment(s) of brennan, soft tissue measuring 0.3 x 0.3 x 0.3 cm submitted entirely in 1 cassette(s) /TR[facility] 09/27/2020 1517 Local . 02 Pathologist provided ICD-10: K63.5 . 02 CPT . 249918, [id number], [id number], [id number] Performed at: 01 [facility] [address] [id number] MD Antony Ibarra MD Phone: [phone] Performed at: [id number] [place], [place] [id number] MD Jenny Simpson MD Phone: [phone]
--- NOTE | 2020-09-25 12:19 | PM.HP.1 ---
History of Present Illness History of Present Illness Date Patient Seen: 09/25/20 Chief complaint: SCREENING COLONOSCOPY Narrative: 59 year old male comes in today for consideration of a screening colonoscopy. FIT negative on 02/08/2019. There have been no lower GI symptoms suggesting disease such as change in bowel habits, bleeding, abdominal pain or anemia. There's been no family history of colon cancer or colon polyps. Overall health issues have been stable, including no major cardiac events for at least 6 weeks. PCP: Dr. Gill Past Medical History: PUD CANDIDIASIS, SKIN Myalgia Hypogonadism, male Umbilical hernia Diastasis recti History of smoking 25-50 pack years Prediabetes COPD GERD Asthma - mild persistent Insomnia Sensation of lump in throat C3-C6 trauma, 2011 seconary to trauma with 4 PVC pipe Past Surgical History: C4-C6 anterior cervical discectomy and fusion, 2019 Hernia repair 06/30/2020 Family History: Father: b 1934 Mother: b 194 Siblings: sister age 52, cancer brother b 1964 Social History: Marital Status: (Carmella Nettles) Children: 4 Occupation: retired Household Members: , b 12/16/1958, son, [id number] Education: 12 Alcohol drinks/day: 1/day Caffeine use/day: 2 Type of Exercise: walk, working Exercise Times per Week: 5 Guns in home: yes Dental Care w/in 6 mos.: no Sun Exposure: frequently Seat Belt Use: yes Smoking Status: former smoker Tobacco Type: cigarettes Packs/Day: 0.75 Year quit smokin Pack years: 25 Passive Smoke Exposure: no Drug Use: never Patient History Medical History Asthma Surgical History H/O hernia repair S/P cervical spinal fusion Family & Social History Social History: household members spouse Tobacco & Substance use: Smoking Status Former smoker alcohol intake current alcohol intake frequency a few times a month Substance Use Type does not use Meds Home Medications and Allergies Home Medications Medication Instructions Recorded Confirmed Type albuterol sulfate 2 puff INHALATION QID 07/09/18 09/25/20 History cholecalciferol (vitamin D3) 100 100 mcg PO DAILY 06/25/20 09/25/20 History mcg (4,000 unit) capsule glucosamine HCl 500 mg tablet 500 mg PO DAILY 06/25/20 09/25/20 History montelukast 4 mg oral granules in 4 mg PO DAILY 06/25/20 09/25/20 History packet omega-3 fatty acids 1,000 mg 1,000 mg PO DAILY 06/25/20 09/25/20 History capsule trazodone 50 mg tablet 200 mg PO DAILY 06/25/20 09/25/20 History turmeric 400 mg capsule 1,950 mg PO DAILY 06/25/20 09/25/20 History Trelegy Ellipta 1 inh INHALATION BID 06/30/20 09/25/20 History acetaminophen [Tylenol] 650 mg PO QID PRN #60 cap 06/30/20 09/25/20 Rx methocarbamol 750 mg PO DAILY 06/30/20 09/25/20 History tamsulosin 0.4 mg PO DAILY 06/30/20 09/25/20 History testosterone enanthate 200 mg IM Q2W 06/30/20 09/25/20 History Allergies Allergy/AdvReac Type Severity Reaction Status Date / Time No Known Drug Allergies Allergy Verified 09/25/20 13:48 Review of Systems Review of Systems ROS: Yes All systems reviewed with the patient and are negative except as otherwise documented Exam Narrative Exam Narrative: GENERAL: Alert and oriented, appearing stated age and in no acute distress. HEENT: Head normocephalic/atraumatic. Pupils equal, round, and reactive to light and accomodation. Extraocular muscles intact. Tympanic membranes clear. Nasal mucosa moist, septum midline. Oral mucosa moist, no lesions. Neck soft and supple, no lymphadenopathy. LUNGS: Clear to ausculation bilaterally, no wheezes, rhonchi or rales. CV: Normal S1 and S2 with regular rate and rhythm, no audible murmurs, rubs or gallops. ABDOMEN: Soft, non-tender, non-distended, no organomegaly. Positive bowel sounds. EXTREMITIES: No clubbing, cyanosis, or edema. NEURO: Cranial nerves II through XII grossly intact, no focal deficits. PSYCH: Alert and oriented x 3. Assessment & Plan Assessment & Plan narrative: 1. Screening for colon cancer Plan for colonoscopy. The nature and character of the procedure as well as anticipated results were discussed. The possibility of not completing the procedure was also discussed. Possible complications including aspiration pneumonia, bleeding, perforation and reaction to medications either for sedation or preparation and missed lesions were discussed. Questions were answered and proceeding to the colonoscopy was elected. Informed consent signed. I sincerely appreciate the referral allowing me to participate in this patient's care. Please contact me with any questions or concerns.
--- NOTE | 2020-09-25 12:22 | PM.OP.ENDO ---
Operative Date/Time/Diagnoses Date of procedure: 09/25/20 Procedure Notes SCOAP/Timeout: 2:33 p.m. Procedure in detail: ENDOSCOPIST: Sigrid Gill MD Sedation RN: Chaya Harris RN Sedation start time: 2:34 p.m. Sedation end time: 3:20 p.m. PROCEDURE: Colonoscopy with cold snare and methylene blue lift INDICATIONS: 1. Screening for colon cancer MEDICATION: Levsin 0.125 mg sublingual, incremental doses of Versed and fentanyl until appropriate level sedation achieved. ASA CLASS: 2 CECAL WITHDRAWAL TIME: 37 minutes COMPLICATIONS: None. EXTENT OF PROCEDURE: Cecum. QUALITY OF PREP: Good with portions of liquid stool. PROCEDURE: Prior to insertion of the colonoscope, a digital rectal examination was accomplished with circumferential palpation of the distal rectal mucosa without significant findings being noted. The high-definition colonoscope was passed into the rectum in the usual fashion and advanced over to the cecum without difficulty. The ileocecal valve, appendiceal stoma, and medial wall all could be inspected and no abnormalities were seen. ASCENDING COLON: As the colonoscope was withdrawn, care was taken to expose and inspect the haustral folds and no abnormalities were seen. HEPATIC FLEXURE: Normal, no polyps, diverticula or other abnormalities. TRANSVERSE COLON: Normal, no polyps, diverticula or other abnormalities. DESCENDING COLON: Normal, no polyps, diverticula or other abnormalities. SIGMOID COLON: 5 polyps ranging in size between 4 and 6 mm. The 2 polyps that were 6 mm were lifted with methylene blue and removed with cold snare. The remainder of the polyps were removed with Jumbo forceps. Excellent hemostasis. Otherwise, minor diverticulosis and no other abnormalities. RECTUM: Normal. J maneuver was produced. There was no significant perianal disease. The J maneuver was broken. The remainder of the rectum was inspected and there was moderate external hemorrhoid disease. The scope was withdrawn. IMPRESSION: 1. Sigmoid polyps x 5, 4-6 mm, 6 mm polyp lifted with methylene blue and removed with cold snare. 4 mm polyps removed with Jumbo forceps. 2. External hemorrhoids, moderate PLAN: 1. Follow-up in clinic status post pathology results. The possibility of a missed lesion including a malignancy has been discussed with the patient previously. Potential alarm symptoms have been discussed and should be reported immediately.
[2020-09-25 14:07] VITALS: BP 146/80; PULSE 70; RESP 18; TEMP 36.9; O2SAT 97; BMI 29.2
[2020-09-25] MEDS: LACTATED RINGERS 1,000 ML 200 ML IV (14:13)
[2020-09-25] MEDS: HYOSCYAMINE 0.125 MG TABLET PO (14:15)
[2020-09-25] MEDS: MIDAZOLAM 5 MG/5 ML VIAL IV (15:14)
[2020-09-25] MEDS: fentaNYL 250 MCG/5 ML INJ IV (15:17)
[2020-09-25] MEDS: METHYLENE BLUE 50 MG/10 ML VIAL 10 MG IV (15:20)
[2020-09-25 15:24] VITALS: BP 128/77; PULSE 68; RESP 10; TEMP 36.1; O2SAT 96
[2020-09-25 15:30] VITALS: BP 110/78; PULSE 72; RESP 10; TEMP 36.4; O2SAT 95
[2020-09-25 15:36] VITALS: BP 122/71; PULSE 78; RESP 11; TEMP 34.7; O2SAT 97
[2020-09-25 15:46] VITALS: BP 132/75; PULSE 74; RESP 14; TEMP 36.4; O2SAT 98
[2020-09-25 16:02] VITALS: BP 127/71; PULSE 71; RESP 16; TEMP 37; O2SAT 96
== END 2020-09-25 16:11 | disposition home or self-care (01) ==
PROVIDERS: Family Provider Student in an Organized Health Care Education/Training Program; PCP Student in an Organized Health Care Education/Training Program; Referring Provider Student in an Organized Health Care Education/Training Program; Visit Provider Student in an Organized Health Care Education/Training Program
PROC: 0DJD8ZZ Inspection of Lower Intestinal Tract, Via Natural or Artificial Opening Endoscopic (ICD-10-PCS; CPT 45378; principal; 2020-09-25 14:30)
DX: Z12.11 Encounter for screening for malignant neoplasm of colon (principal); K57.30 Diverticulosis of large intestine without perforation or abscess without bleeding; G62.9 Polyneuropathy, unspecified; I49.9 Cardiac arrhythmia, unspecified; J44.9 Chronic obstructive pulmonary disease, unspecified; J45.30 Mild persistent asthma, uncomplicated; D12.5 Benign neoplasm of sigmoid colon; D12.6 Benign neoplasm of colon, unspecified
CPT/HCPCS: 45381; 45385; J2250; J3010; Q9968

== ENCOUNTER → 2021-03-02 07:19 | Outpatient (CLI) | payer OTHER, SELFPAY | PROVIDERS: Family Provider Student in an Organized Health Care Education/Training Program; PCP Student in an Organized Health Care Education/Training Program; Referring Provider Student in an Organized Health Care Education/Training Program; Visit Provider Student in an Organized Health Care Education/Training Program | DX: R22.9 Localized swelling, mass and lump, unspecified (principal); Z53.8 Procedure and treatment not carried out for other reasons ==

== ENCOUNTER → 2021-06-17 12:40 | Outpatient (CLI) | payer OTHER, SELFPAY ==
--- NOTE | 2021-06-17 12:43 | DI.MG.S_ITS ---
MALE BILATERAL DIGITAL DIAGNOSTIC MAMMOGRAM 3D/2D: 06/17/2021 CLINICAL: Right breast lump. Baseline exam. No prior exams were available for comparison. No significant masses, calcifications, or other findings are seen in either breast. IMPRESSION: INCOMPLETE: NEEDS ADDITIONAL IMAGING EVALUATION Normal study. Ultrasound recommended to evaluate the reportedly palpable abnormality. This exam was interpreted at Station ID: [id number]. NOTE: For mammograms, a report in lay terms will be sent to the patient. Approximately 15% of breast malignancies will not be visualized mammographically. In the management of a palpable breast mass, a negative mammogram must not discourage biopsy of a clinically suspicious lesion. Electronically Signed By: Sergio Oviedo M.D. jr/:06/17/2021 16:08:46 ACR BI-RADS Category 0: Incomplete [id number]
--- NOTE | 2021-06-17 12:43 | DI.US.S_ITS ---
ULTRASOUND OF RIGHT BREAST: 06/17/2021 CLINICAL: Palpable right breast lump. Comparison is made to exam dated: 06/17/2021 [facility]. Color flow and real-time ultrasound of the right breast were performed. Parker scale images of the real-time examination were reviewed. There is a benign 0.8 cm x 2.5 cm x 2 cm lipoma in the right breast at 6 o'clock posterior depth 8 cm from the nipple. IMPRESSION: BENIGN There is no sonographic evidence of malignancy. The 0.8 cm x 2.5 cm x 2 cm lipoma in the right breast is benign. This exam was interpreted at Station ID: [id number]. Electronically Signed By: Sergio Oviedo M.D., jr/yamel:06/17/2021 16:10:13 letter sent: Normal Exam Ultrasound BI-RADS: 2 Benign
== END ==
LOC: MAMMO 12:42
PROVIDERS: Family Provider Student in an Organized Health Care Education/Training Program; PCP Student in an Organized Health Care Education/Training Program; Referring Provider Student in an Organized Health Care Education/Training Program; Visit Provider Student in an Organized Health Care Education/Training Program
DX: D17.1 Benign lipomatous neoplasm of skin and subcutaneous tissue of trunk (principal); R92.8 Other abnormal and inconclusive findings on diagnostic imaging of breast
CPT/HCPCS: 76642; 77066; G0279

== ENCOUNTER → 2021-10-14 15:32 | Outpatient (CLI) | payer OTHER, SELFPAY ==
--- NOTE | 2021-10-14 | DI.RAD.S_ITS ---
PROCEDURE: XR CHEST 2V INDICATIONS: COUGH TECHNIQUE: 2 views of the chest were acquired. COMPARISON: [facility], CR, XR CHEST 2V, 07/09/2018, 12:56. FINDINGS: Surgical changes and devices: None. Lungs and pleura: Lungs are clear. No pleural effusions or pneumothorax. Mediastinum: Mediastinal contours are normal. Heart size is normal. Bones and chest wall: No suspicious bony abnormalities. Soft tissues appear unremarkable. IMPRESSION: No acute cardiopulmonary disease. Dictated by: Kareem Olson M.D. on 10/14/2021 at 17:14 Approved by: Kareem Olson M.D. on 10/14/2021 at 17:14
== END ==
PROVIDERS: Family Provider Student in an Organized Health Care Education/Training Program; PCP Student in an Organized Health Care Education/Training Program; Referring Provider Student in an Organized Health Care Education/Training Program; Visit Provider Student in an Organized Health Care Education/Training Program
DX: R05.9 Cough, unspecified (principal)
CPT/HCPCS: 71046

== ENCOUNTER → 2022-01-13 12:16 | Outpatient (CLI) | payer OTHER, SELFPAY ==
--- NOTE | 2022-01-13 12:18 | DI.MRI.S_ITS ---
PROCEDURE: MR CERVICAL SPINE WO CON INDICATIONS: Spinal stenosis, cervical region TECHNIQUE: Noncontrast sagittal T1 spin echo and T2 fast spin echo, sagittal STIR, foraminal oblique sagittal T2 fast spin echo, and axial gradient echo or T2 fast spin echo through the cervical spine. COMPARISON: None. FINDINGS: Image quality: Excellent. Alignment and Curvature: There is normal bony alignment. Bone Marrow: C4-5 C5-6 anterior cervical discectomy and fusion with anterior plate and screw hardware in place. Spinal Cord: Visualized spinal cord has normal size and signal. No cerebellar tonsillar herniation. Paraspinous Soft Tissues: No paravertebral masses. Prevertebral soft tissues are normal in thickness. C2-C3: Normal appearance. C3-C4: Disc space narrowing and asymmetric left disc osteophyte complex with hypertrophic left uncovertebral joint. Mild central stenosis. No foraminal stenosis. C4-C5: Discectomy and fusion. No central stenosis. No foraminal stenosis. C5-C6: Discectomy and fusion. Small disc osteophyte complex present with mild central stenosis. No foraminal stenosis. C6-C7: Disc height is preserved. No central or foraminal stenosis. C7-T1: Normal appearance. IMPRESSION: C4-5 and C5-6 anterior cervical discectomy and fusion with anterior plate and screw hardware in good position. No evidence of significant stenosis throughout the exam Approved by: Orlin Dsouza M.D. on 01/13/2022 at 14:35
== END ==
PROVIDERS: Family Provider Student in an Organized Health Care Education/Training Program; Referring Provider Psychiatry & Neurology Neurology; Visit Provider Psychiatry & Neurology Neurology
DX: M48.02 Spinal stenosis, cervical region (principal); M54.2 Cervicalgia; R20.0 Anesthesia of skin; Z98.1 Arthrodesis status; M48.07 Spinal stenosis, lumbosacral region; R42 Dizziness and giddiness
CPT/HCPCS: 72141

== ENCOUNTER → 2022-06-23 15:51 | Outpatient (CLI) | payer OTHER, SELFPAY ==
--- NOTE | 2022-06-23 15:53 | DI.RAD.S_ITS ---
PROCEDURE: XR LUMBAR SPINE 2-3V INDICATIONS: BACK PAIN TECHNIQUE: 3 views of the lumbar spine were acquired. COMPARISON: None. FINDINGS: Bones: 5 [id number] vertebrae are present. There is normal bony alignment. Small vertebral body osteophytes. No vertebral body compression fractures. No suspicious bony lesions. Soft tissues: Overlying bowel gas pattern is normal. No suspicious soft tissue calcifications. Probable prostate markers. IMPRESSION: Mild degenerative change in the lumbar spine. Dictated by: Leo Bazan M.D. on 06/23/2022 at 17:09 Approved by: Leo Bazan M.D. on 06/23/2022 at 17:10
== END ==
PROVIDERS: Family Provider Student in an Organized Health Care Education/Training Program; PCP Registered Nurse; Referring Provider Registered Nurse; Visit Provider Registered Nurse
DX: M47.26 Other spondylosis with radiculopathy, lumbar region (principal)
CPT/HCPCS: 72100

== ENCOUNTER → 2022-07-26 10:50 | Outpatient (CLI) | payer OTHER, SELFPAY ==
--- NOTE | 2022-07-26 | DI.MRI.S_ITS ---
PROCEDURE: MR LUMBAR SPINE WO CON INDICATIONS: Radiculopathy, lumbar region TECHNIQUE: Noncontrast sagittal T1 spin echo and T2 fast echo, sagittal STIR, and T2 fast spin echo through the lumbar spine. In cases with scoliosis, additional coronal T2 fast spin echo may be performed. COMPARISON: [facility], CR, XR LUMBAR SPINE 2-3V, 06/23/2022, 16:02. FINDINGS: Image quality: Excellent. Alignment and Curvature: There is trace retrolisthesis of L4 on L5. Bone Marrow: Marrow is of normal overall signal. No acute vertebral body compression fractures. Spinal Cord: Conus medullaris terminates at the L1-2 level. Visualized cord demonstrates normal signal and size. Paraspinous Soft Tissues: No paravertebral masses. Simple right renal cyst is present. Discs: Moderate desiccation is present L5-S1, mild L4-5. L1-L2: No disc bulge, spinal stenosis or foraminal narrowing. Mild epidural lipomatosis. L2-L3: No disc bulge, spinal stenosis or foraminal narrowing. Mild epidural lipomatosis. L3-L4: Minimal disc bulge without spinal stenosis or foraminal narrowing. Epidural lipomatosis is present. L4-L5: Mild disc bulge with slight effacement of the spinal canal. [id number] left foraminal narrowing with facet and ligamentum flavum hypertrophy. Epidural lipomatosis is present. L5-S1: Minimal disc bulge with small superimposed posterior central protrusion. No spinal stenosis. Moderate bilateral foraminal narrowing with facet and ligamentum flavum hypertrophy. IMPRESSION: Degenerative changes most notable at L5-S1 demonstrating moderate bilateral foraminal narrowing. No nerve root impingement. Dictated by: Sandra Fernando M.D. on 07/26/2022 at 16:19 Approved by: Sandra Fernando M.D. on 07/26/2022 at 16:22
== END ==
PROVIDERS: Family Provider Student in an Organized Health Care Education/Training Program; PCP Registered Nurse; Referring Provider Physician Assistant Surgical; Visit Provider Physician Assistant Surgical
DX: M47.27 Other spondylosis with radiculopathy, lumbosacral region; M51.16 Intervertebral disc disorders with radiculopathy, lumbar region; M51.36 Other intervertebral disc degeneration, lumbar region; S39.012A Strain of muscle, fascia and tendon of lower back, initial encounter; M47.26 Other spondylosis with radiculopathy, lumbar region; M48.07 Spinal stenosis, lumbosacral region
CPT/HCPCS: 72148

== ENCOUNTER 2022-08-15 07:30 | Outpatient (RCR) | payer OTHER, SELFPAY ==
--- NOTE | 2022-07-19 07:30 | PT.OIE ---
Current Diagnoses Radiculopathy, lumbar region (07/19/22) Past Medical History (Last Reviewed 06/25/20 @ 17:12 by Nahum Miranda MD) Asthma Past Surgical History (Last Reviewed 06/25/20 @ 17:12 by Nahum Miranda MD) H/O hernia repair S/P cervical spinal fusion Visit Care Team Role Provider Type ADRIANA Hager Primary Care Provider Non-Staff Specialty: Family Practice Address: [address] [place] [address], [id number] Email: Sigrid Gill MD Family Provider Physician Specialty: [facility] Address: [address] [place] [address], [address] Email: [email or web address] Attending Provider Physician Referring Provider Specialty: [facility] Address: [address] [place] [address], [address] Email: [email or web address] Physical Therapy Initial Evaluation PT-OP-A Visit Information Start: 07/18/22 12:42 Freq: Status: Active Protocol: Document 07/19/22 07:35 AMB (Rec: 07/19/22 08:11 AMB [id number]) Out-Patient Physical Therapy Visit Information Visit Information Visit Type Treatment Note Visit Start Time 07:30 Visit Stop Time 08:15 Total Visit Minutes 45 Visit Number 1 PT-OP-B Current Condition Start: 07/18/22 12:42 Freq: Status: Active Protocol: Document 07/19/22 07:35 AMB (Rec: 07/19/22 08:11 AMB [id number]) Current Condition History of Current Condition Onset Date 6 weeks ago Current Complaints back pain History of Current Condition Seeing chiropractor and acupuncture 2x/month. Bent down to squeegee the shower door and felt it pop. Going to the gym and walking on the treadmill. Sitting increases the pain worse in L hip and L knee at night. Walking and standing seem to be helpful. Future Testing and Treatments Planned MRI soon, already had Xrays Treatment Goals Patient/Caregiver Goals Reduce pain, improve sitting tolerance, improve lying down Personal Factors Other Personal Factors That May Effect Hx hernia surgery, hx cervical Therapy/Recovery fusion in 2019 PT-OP-C Subjective Start: 07/18/22 12:42 Freq: Status: Active Protocol: Document 07/19/22 07:35 AMB (Rec: 07/19/22 08:11 AMB [id number]) Patient Questionnaires Oswestry Low Back Index Oswestry Score 20 Oswestry Impairment 20 to 39% Impaired (Score 20- 39) OP-PT Pain Assessment Comments Pain Comments Burning and tingling but denies numbness PT-OP-K Range of Motion Start: 07/18/22 12:42 Freq: Status: Active Protocol: Document 07/19/22 07:35 AMB (Rec: 07/19/22 08:11 AMB [id number]) Lumbar Spine Range of Motion Lumbar Spine Active Percentage Testing Position Standing Flexion 50 Extension 75 Lateral Flexion Left 100 Lateral Flexion Right 75 Comments pain with coming back up from flexion, pain with R sidebending PT-OP-M Strength Start: 07/18/22 12:42 Freq: Status: Active Protocol: Document 07/19/22 07:35 AMB (Rec: 07/19/22 08:11 AMB [id number]) Hip Strength Hip Manual Muscle Testing Right Flexion (L2) 4+ Good+ Extension (S1) 4+ Good+ Abduction 4+ Good+ Left Flexion (L2) 4+ Good+ Extension (S1) 4+ Good+ Abduction 4+ Good+ Knee Strength Knee Manual Muscle Testing Right Flexion (S2) 5 Normal Extension (L3) 5 Normal Left Flexion (S2) 5 Normal Extension (L3) 5 Normal Ankle/Foot Strength Ankle and Foot Manual Muscle Testing Right Dorsiflexion (L4) 5 Normal Plantarflexion (S1) 5 Normal Left Dorsiflexion (L4) 5 Normal Plantarflexion (S1) 5 Normal PT-OP-T Assessment and Plan Start: 07/18/22 12:42 Freq: Status: Active Protocol: Document 07/19/22 07:35 AMB (Rec: 07/19/22 08:11 AMB [id number]) Physical Therapy Assessment Rehab Potential Rehabilitation Potential Good Evaluation Complexity Number of Personal Factors/Comorbidities 1-2 Number of Body Systems Impaired 1-2 Clinical Presentation at Evaluation Stable Impairments Impairments Functional Activities,Gait, Pain,ROM,Strength Goals Two Impairment HEP Short Term Goal (STG) Hira will be independent with a HEP for core stability. STG Duration 5 weeks Motel Manager Goal (LTG) Hira will lift 20 pounds from the floor with good body mechanics without an increase in pain. LTG Duration 10 weeks One Impairment Positional tolerance Short Term Goal (STG) Hira will drive for 30 minutes with back pain of 3/10 or less. STG Duration 5 weeks Motel Manager Goal (LTG) Hira will roll in bed without an increase in back/leg pain. LTG Duration 10 weeks Assessment Summary Assessment Hira attends physical therapy with recent onset back pain with sx that radiate into the the left leg. He is noticing increased sx with sitting and was quite tender through L L5S1 and into piriformis. Pt will need continued education in body mechanics. Pt will benefit from physical therapy to improve his strength, posture, body mechanics and reduce his pain. Physical Therapy Plan Frequency and Duration Frequency of Treatment 2x/Week Duration of treatment (weeks) 8 Plan of Care Start Date 07/19/22 Plan of Care End Date 09/13/22 Therapeutic Interventions Therapeutic Interventions Gait Training,Home Exercise Program,Manual Therapy, Neuromuscular Re-education, Self-Care/Home Management, Therapeutic Activities, Therapeutic Exercises Modalities Cold Pack/Ice Massage,Electric Stimulation,Hot Packs Next Visit Focus/Plan Next Note Type Treatment Note Next Visit Plan Core stability, review body mechanics, gym exercises.
--- NOTE | 2022-07-19 16:14 | PT.OPPOC ---
Physical, Occupational & Speech Therapy At [facility] Current Diagnoses Radiculopathy, lumbar region (07/19/22) Visit Care Team Role Provider Type ADRIANA Hager Primary Care Provider Non-Staff Specialty: Family Practice Address: [address], [address] Email: Sigrid Gill MD Family Provider Physician Specialty: Family Practice Address: [address] [place] [address], [id number] Email: [email or web address] Yanna Villanueva MD Attending Provider Physician Referring Provider Specialty: [facility] Address: [address] [place] [address], [id number] Email: [email or web address] Plan Of Care PT-OP-T Assessment and Plan Start: 07/18/22 12:42 Freq: Status: Active Protocol: Document 07/19/22 07:35 AMB (Rec: 07/19/22 08:11 AMB [id number]) Physical Therapy Assessment Rehab Potential Rehabilitation Potential Good Evaluation Complexity Number of Personal Factors/Comorbidities 1-2 Number of Body Systems Impaired 1-2 Clinical Presentation at Evaluation Stable Impairments Impairments Functional Activities,Gait, Pain,ROM,Strength Goals Two Impairment HEP Short Term Goal (STG) Hira will be independent with a HEP for core stability. STG Duration 5 weeks Skilled Nursing Goal (LTG) Hira will lift 20 pounds from the floor with good body mechanics without an increase in pain. LTG Duration 10 weeks One Impairment Positional tolerance Short Term Goal (STG) Hira will drive for 30 minutes with back pain of 3/10 or less. STG Duration 5 weeks Skilled Nursing Goal (LTG) Hira will roll in bed without an increase in back/leg pain. LTG Duration 10 weeks Assessment Summary Assessment Hira attends physical therapy with recent onset back pain with sx that radiate into the the left leg. He is noticing increased sx with sitting and was quite tender through L L5S1 and into piriformis. Pt will need continued education in body mechanics. Pt will benefit from physical therapy to improve his strength, posture, body mechanics and reduce his pain. Physical Therapy Plan Frequency and Duration Frequency of Treatment 2x/Week Duration of treatment (weeks) 8 Plan of Care Start Date 07/19/22 Plan of Care End Date 09/13/22 Therapeutic Interventions Therapeutic Interventions Gait Training,Home Exercise Program,Manual Therapy, Neuromuscular Re-education, Self-Care/Home Management, Therapeutic Activities, Therapeutic Exercises Modalities Cold Pack/Ice Massage,Electric Stimulation,Hot Packs Next Visit Focus/Plan Next Note Type Treatment Note Next Visit Plan Core stability, review body mechanics, gym exercises. Plan of Care Dates Plan of Care Start Date 07/19/22 Plan of Care End Date 09/13/22 Electronically Signed by: Mery Feldman, PT 07/20/22 [id number] If you are in agreement with this Plan of Care, please return a signed and dated copy. I have reviewed this Plan of Care and certify that the skilled therapy services above are required to meet the patient?s needs. Physician Signature Date Printed Name and Credentials Clinical Instructor Signature Printed Name and Credentials
--- NOTE | 2022-07-25 15:51 | PT.OTN ---
Current Diagnoses Radiculopathy, lumbar region (07/25/22) Physical Therapy Treatment Note PT-OP-A Visit Information Start: 07/18/22 12:42 Freq: Status: Active Protocol: Document 07/25/22 14:34 AMB (Rec: 07/25/22 15:51 AMB [id number]) Out-Patient Physical Therapy Visit Information Visit Information Visit Type Treatment Note Visit Start Time 14:30 Visit Stop Time 15:15 Total Visit Minutes 45 Visit Number 2 PT-OP-B Current Condition Start: 07/18/22 12:42 Freq: Status: Active Protocol: Document 07/19/22 07:35 AMB (Rec: 07/19/22 08:11 AMB [id number]) Current Condition History of Current Condition Onset Date 6 weeks ago Current Complaints back pain History of Current Condition Seeing chiropractor and acupuncture 2x/month. Bent down to squeegee the shower door and felt it pop. Going to the gym and walking on the treadmill. Sitting increases the pain worse in L hip and L knee at night. Walking and standing seem to be helpful. Future Testing and Treatments Planned MRI soon, already had Xrays Treatment Goals Patient/Caregiver Goals Reduce pain, improve sitting tolerance, improve lying down Personal Factors Other Personal Factors That May Effect Hx hernia surgery, hx cervical Therapy/Recovery fusion in 2019 PT-OP-C Subjective Start: 07/18/22 12:42 Freq: Status: Active Protocol: Document 07/25/22 14:34 AMB (Rec: 07/25/22 15:51 AMB [id number]) OP-PT Subjective Patient Comments Patient Comments The more I work it the more my back feels better. PT-OP-K Range of Motion Start: 07/18/22 12:42 Freq: Status: Active Protocol: Document 07/19/22 07:35 AMB (Rec: 07/19/22 08:11 AMB [id number]) Lumbar Spine Range of Motion Lumbar Spine Active Percentage Testing Position Standing Flexion 50 Extension 75 Lateral Flexion Left 100 Lateral Flexion Right 75 Comments pain with coming back up from flexion, pain with R sidebending PT-OP-M Strength Start: 07/18/22 12:42 Freq: Status: Active Protocol: Document 07/19/22 07:35 AMB (Rec: 07/19/22 08:11 AMB [id number]) Hip Strength Hip Manual Muscle Testing Right Flexion (L2) 4+ Good+ Extension (S1) 4+ Good+ Abduction 4+ Good+ Left Flexion (L2) 4+ Good+ Extension (S1) 4+ Good+ Abduction 4+ Good+ Knee Strength Knee Manual Muscle Testing Right Flexion (S2) 5 Normal Extension (L3) 5 Normal Left Flexion (S2) 5 Normal Extension (L3) 5 Normal Ankle/Foot Strength Ankle and Foot Manual Muscle Testing Right Dorsiflexion (L4) 5 Normal Plantarflexion (S1) 5 Normal Left Dorsiflexion (L4) 5 Normal Plantarflexion (S1) 5 Normal PT-OP-Q Treatments Start: 07/18/22 12:42 Freq: Status: Active Protocol: Document 07/25/22 14:34 AMB (Rec: 07/25/22 15:51 AMB [id number]) Therapeutic Exercises Supine Exercises posterior pelvic tilt Reps/Minutes 2x10 Comments breathe LTR Reps/Minutes 2x10 Comments breathe active hamstring stretch Supine Exercise Name HEP Reps/Minutes 2x10 Other Exercises side plank Other Exercise Name forearms knees Reps/Minutes 30x2 bird dog Other Exercise Name HEP Reps/Minutes 2x10 plank Other Exercise Name forearms toes Reps/Minutes 30x2 PT-OP-T Assessment and Plan Start: 07/18/22 12:42 Freq: Status: Active Protocol: Document 07/25/22 14:34 AMB (Rec: 07/25/22 15:51 AMB [id number]) Physical Therapy Assessment Goals Two Impairment HEP Short Term Goal (STG) Hira will be independent with a HEP for core stability. STG Duration 5 weeks Packaging Tech Goal (LTG) Hira will lift 20 pounds from the floor with good body mechanics without an increase in pain. LTG Duration 10 weeks One Impairment Positional tolerance Short Term Goal (STG) Hira will drive for 30 minutes with back pain of 3/10 or less. STG Duration 5 weeks Packaging Tech Goal (LTG) Hira will roll in bed without an increase in back/leg pain. LTG Duration 10 weeks Assessment Summary Assessment Hira tolerated exercises well although was fatigued by previous UE workout at the gym . Pt noticing less pain at night with using pillow. Exercise is helping with sitting pain. Physical Therapy Plan Frequency and Duration Frequency of Treatment 2x/Week Duration of treatment (weeks) 8 Plan of Care Start Date 07/19/22 Plan of Care End Date 05/16/23 Therapeutic Interventions Therapeutic Interventions Gait Training,Home Exercise Program,Manual Therapy, Neuromuscular Re-education, Self-Care/Home Management, Therapeutic Activities, Therapeutic Exercises Modalities Cold Pack/Ice Massage,Electric Stimulation,Hot Packs Next Visit Focus/Plan Next Note Type Treatment Note Next Visit Plan Core stability, review body mechanics, gym exercises.
--- NOTE | 2022-08-01 08:27 | PT.OTN ---
Current Diagnoses Radiculopathy, lumbar region (08/01/22) Physical Therapy Treatment Note PT-OP-A Visit Information Start: 07/18/22 12:42 Freq: Status: Active Protocol: Document 08/01/22 07:42 AMB (Rec: 08/01/22 08:13 AMB [id number]) Out-Patient Physical Therapy Visit Information Visit Information Visit Type Treatment Note Visit Start Time 07:30 Visit Stop Time 08:15 Total Visit Minutes 45 Visit Number 3 PT-OP-B Current Condition Start: 07/18/22 12:42 Freq: Status: Active Protocol: Document 07/19/22 07:35 AMB (Rec: 07/19/22 08:11 AMB [id number]) Current Condition History of Current Condition Onset Date 6 weeks ago Current Complaints back pain History of Current Condition Seeing chiropractor and acupuncture 2x/month. Bent down to squeegee the shower door and felt it pop. Going to the gym and walking on the treadmill. Sitting increases the pain worse in L hip and L knee at night. Walking and standing seem to be helpful. Future Testing and Treatments Planned MRI soon, already had Xrays Treatment Goals Patient/Caregiver Goals Reduce pain, improve sitting tolerance, improve lying down Personal Factors Other Personal Factors That May Effect Hx hernia surgery, hx cervical Therapy/Recovery fusion in 2019 PT-OP-C Subjective Start: 07/18/22 12:42 Freq: Status: Active Protocol: Document 08/01/22 07:42 AMB (Rec: 08/01/22 08:13 AMB [id number]) OP-PT Subjective Patient Comments Patient Comments Pt feeling ok, driving still challenging. Got MRI PT-OP-K Range of Motion Start: 07/18/22 12:42 Freq: Status: Active Protocol: Document 07/19/22 07:35 AMB (Rec: 07/19/22 08:11 AMB [id number]) Lumbar Spine Range of Motion Lumbar Spine Active Percentage Testing Position Standing Flexion 50 Extension 75 Lateral Flexion Left 100 Lateral Flexion Right 75 Comments pain with coming back up from flexion, pain with R sidebending PT-OP-M Strength Start: 07/18/22 12:42 Freq: Status: Active Protocol: Document 07/19/22 07:35 AMB (Rec: 07/19/22 08:11 AMB [id number]) Hip Strength Hip Manual Muscle Testing Right Flexion (L2) 4+ Good+ Extension (S1) 4+ Good+ Abduction 4+ Good+ Left Flexion (L2) 4+ Good+ Extension (S1) 4+ Good+ Abduction 4+ Good+ Knee Strength Knee Manual Muscle Testing Right Flexion (S2) 5 Normal Extension (L3) 5 Normal Left Flexion (S2) 5 Normal Extension (L3) 5 Normal Ankle/Foot Strength Ankle and Foot Manual Muscle Testing Right Dorsiflexion (L4) 5 Normal Plantarflexion (S1) 5 Normal Left Dorsiflexion (L4) 5 Normal Plantarflexion (S1) 5 Normal PT-OP-Q Treatments Start: 07/18/22 12:42 Freq: Status: Active Protocol: Document 08/01/22 07:42 AMB (Rec: 08/01/22 08:13 AMB [id number]) Therapeutic Exercises Supine Exercises LTR Reps/Minutes 2x10 Comments breathe active hamstring stretch Supine Exercise Name HEP Reps/Minutes 2x10 Sidelying Exercises clamshell Resistance orange band Reps/Minutes 2x10 Sitting Exercises pelvic tilt Sitting Exercise Name on 65cm ball march Sitting Exercise Name on 65cm ball Comments cued TA and pelvic floor Other Exercises bird dog Other Exercise Name HEP Reps/Minutes 2x10 plank Other Exercise Name forearms toes Reps/Minutes 30x2 PT-OP-T Assessment and Plan Start: 07/18/22 12:42 Freq: Status: Active Protocol: Document 08/01/22 07:42 AMB (Rec: 08/01/22 08:13 AMB [id number]) Physical Therapy Assessment Goals Two Impairment HEP Short Term Goal (STG) Hira will be independent with a HEP for core stability. STG Duration 5 weeks Reproduction Artist Goal (LTG) Hira will lift 20 pounds from the floor with good body mechanics without an increase in pain. LTG Duration 10 weeks One Impairment Positional tolerance Short Term Goal (STG) Hira will drive for 30 minutes with back pain of 3/10 or less. STG Duration 5 weeks Reproduction Artist Goal (LTG) Hira will roll in bed without an increase in back/leg pain. LTG Duration 10 weeks Assessment Summary Assessment Driving is the biggest issue at this point. Pt is seeing MD to review MRI results. NO pain with exercises today. Physical Therapy Plan Frequency and Duration Frequency of Treatment 2x/Week Duration of treatment (weeks) 8 Plan of Care Start Date 07/19/22 Plan of Care End Date 09/13/22 Therapeutic Interventions Therapeutic Interventions Gait Training,Home Exercise Program,Manual Therapy, Neuromuscular Re-education, Self-Care/Home Management, Therapeutic Activities, Therapeutic Exercises Modalities Cold Pack/Ice Massage,Electric Stimulation,Hot Packs Next Visit Focus/Plan Next Note Type Treatment Note Next Visit Plan Core stability, review body mechanics, gym exercises.
--- NOTE | 2022-08-15 08:15 | PT.OTN ---
Current Diagnoses Radiculopathy, lumbar region (08/15/22) Physical Therapy Treatment Note PT-OP-A Visit Information Start: 07/18/22 12:42 Freq: Status: Active Protocol: Document 08/15/22 07:32 SP (Rec: 08/15/22 08:20 SP [id number]) Out-Patient Physical Therapy Visit Information Visit Information Visit Type Treatment Note Visit Note SPTJohn Franco assised Visit Start Time 07:32 Visit Stop Time 08:15 Total Visit Minutes 43 Visit Number 4 Number of SUPERVISOR MAPPING Visits 1 PT-OP-B Current Condition Start: 07/18/22 12:42 Freq: Status: Active Protocol: Document 07/19/22 07:35 AMB (Rec: 07/19/22 08:11 AMB [id number]) Current Condition History of Current Condition Onset Date 6 weeks ago Current Complaints back pain History of Current Condition Seeing chiropractor and acupuncture 2x/month. Bent down to squeegee the shower door and felt it pop. Going to the gym and walking on the treadmill. Sitting increases the pain worse in L hip and L knee at night. Walking and standing seem to be helpful. Future Testing and Treatments Planned MRI soon, already had Xrays Treatment Goals Patient/Caregiver Goals Reduce pain, improve sitting tolerance, improve lying down Personal Factors Other Personal Factors That May Effect Hx hernia surgery, hx cervical Therapy/Recovery fusion in 2019 PT-OP-C Subjective Start: 07/18/22 12:42 Freq: Status: Active Protocol: Document 08/15/22 07:32 SP (Rec: 08/15/22 08:20 SP [id number]) OP-PT Subjective Patient Comments Patient Comments Pt reports met with doc and got results with MRI of back. New back pain and burning sensation down back of legs past couple of days. Goes to [employer] and does different body areas working out, walks about 22 miles a week and approx almost 4 mph 6 days a week. Yesterday walked 3.5 miles, does 3deg decline to work quads. Pt reports utilizes machines mostly due to free weights irritates his neck, previous injuries. Pt has been having to drive to [place] and today [facility] [place]. PT-OP-K Range of Motion Start: 07/18/22 12:42 Freq: Status: Active Protocol: Document 07/19/22 07:35 AMB (Rec: 07/19/22 08:11 AMB [id number]) Lumbar Spine Range of Motion Lumbar Spine Active Percentage Testing Position Standing Flexion 50 Extension 75 Lateral Flexion Left 100 Lateral Flexion Right 75 Comments pain with coming back up from flexion, pain with R sidebending PT-OP-M Strength Start: 07/18/22 12:42 Freq: Status: Active Protocol: Document 07/19/22 07:35 AMB (Rec: 07/19/22 08:11 AMB [id number]) Hip Strength Hip Manual Muscle Testing Right Flexion (L2) 4+ Good+ Extension (S1) 4+ Good+ Abduction 4+ Good+ Left Flexion (L2) 4+ Good+ Extension (S1) 4+ Good+ Abduction 4+ Good+ Knee Strength Knee Manual Muscle Testing Right Flexion (S2) 5 Normal Extension (L3) 5 Normal Left Flexion (S2) 5 Normal Extension (L3) 5 Normal Ankle/Foot Strength Ankle and Foot Manual Muscle Testing Right Dorsiflexion (L4) 5 Normal Plantarflexion (S1) 5 Normal Left Dorsiflexion (L4) 5 Normal Plantarflexion (S1) 5 Normal PT-OP-Q Treatments Start: 07/18/22 12:42 Freq: Status: Active Protocol: Document 08/15/22 07:32 SP (Rec: 08/15/22 08:20 SP [id number]) Therapeutic Exercises Supine Exercises LTR Side bilateral Reps/Minutes 2x10 Comments breathe, painfree range active hamstring stretch Supine Exercise Name HEP Side bilateral Reps/Minutes 2x10 Comments cued slow painfree range APs- Other Exercises lifiting mechanics Other Exercise Name assess Reps/Minutes x1 reps Comments good squat, back health form side plank Other Exercise Name forearms off feet initially then HS pain, elbow and knees Reps/Minutes 30x2 Comments cued PPT Manual Therapy Treatment Soft Tissue Mobilization hip Body Location R>L glut med, piriformis, HS Mobilization Type Rolling,Strumming,Sustained Pressure,Other Intensity/Depth Moderate Body Position Prone back Body Location B distal ES, paraspinals Mobilization Type Rolling,Strumming Intensity/Depth Moderate Body Position Prone Comments MWM Manual Techniques muscle energy pelvic tilt Comments Improved inominant L PSIS posterior rotation and L PSIS anterior rotation upon arrival with L>R SI pain, post muscle energy isometric hip flexion L and extension R neutralized alignment and decreased buring and tightness B HS end tx. PT-OP-T Assessment and Plan Start: 07/18/22 12:42 Freq: Status: Active Protocol: Document 08/15/22 07:32 SP (Rec: 08/15/22 08:20 SP [id number]) Physical Therapy Assessment Goals Two Impairment HEP Short Term Goal (STG) Hira will be independent with a HEP for core stability. STG Duration 5 weeks Detention Goal (LTG) Hira will lift 20 pounds from the floor with good body mechanics without an increase in pain. LTG Duration 10 weeks One Impairment Positional tolerance Short Term Goal (STG) Hira will drive for 30 minutes with back pain of 3/10 or less. STG Duration 5 weeks Solicitor Patent Goal (LTG) Hira will roll in bed without an increase in back/leg pain. LTG Duration 10 weeks Assessment Summary Assessment Pt good response to manual and carryover demonstration of sciatic nerve flossing. Improved inominant L PSIS posterior rotation and L PSIS anterior rotation upon arrival with L>R SI pain, post muscle energy isometric hip flexion L and extension R neutralized alignment and decreased buring and tightness B HS end tx. Good body mechanics lifting object off floor. He states doesn't do free weight lifting due to undue stress on CS so utilized machines. Physical Therapy Plan Frequency and Duration Frequency of Treatment 2x/Week Duration of treatment (weeks) 8 Plan of Care Start Date 07/19/22 Plan of Care End Date 09/13/22 Therapeutic Interventions Therapeutic Interventions Gait Training,Home Exercise Program,Manual Therapy, Neuromuscular Re-education, Self-Care/Home Management, Therapeutic Activities, Therapeutic Exercises Modalities Cold Pack/Ice Massage,Electric Stimulation,Hot Packs Next Visit Focus/Plan Next Note Type Treatment Note Next Visit Plan Review HEP: Core stability, review body mechanics, gym exercises.
--- NOTE | 2022-09-14 07:56 | PT-OP ANOTE ---
No show- called pt, pt states he canceled via televox.
--- NOTE | 2022-11-30 14:52 | PT.OPDS ---
Current Diagnoses Radiculopathy, lumbar region (08/15/22) Visit Care Team Role Provider Type ADRIANA Hager Primary Care Provider Non-Staff Specialty: Family Practice Address: [address] [place] [address], [id number] Email: Sigrid Gill MD Family Provider Physician Specialty: [facility] Practice Address: [address] [place] [address], [place], [address] Email: [email or web address] Yanna Villanueva MD Attending Provider Physician Referring Provider Specialty: [facility] Address: [address] [place] [address], [phone] Email: [email or web address] Visit Number Visit Number 4 Discharge Summary PT-OP-B Current Condition Start: 07/18/22 12:42 Freq: Status: Active Protocol: Document 07/19/22 07:35 AMB (Rec: 07/19/22 08:11 AMB [id number]) Current Condition History of Current Condition Onset Date 6 weeks ago Current Complaints back pain History of Current Condition Seeing chiropractor and acupuncture 2x/month. Bent down to squeegee the shower door and felt it pop. Going to the gym and walking on the treadmill. Sitting increases the pain worse in L hip and L knee at night. Walking and standing seem to be helpful. Future Testing and Treatments Planned MRI soon, already had Xrays Treatment Goals Patient/Caregiver Goals Reduce pain, improve sitting tolerance, improve lying down Personal Factors Other Personal Factors That May Effect Hx hernia surgery, hx cervical Therapy/Recovery fusion in 2019 PT-OP-C Subjective Start: 07/18/22 12:42 Freq: Status: Active Protocol: Document 08/15/22 07:32 SP (Rec: 08/15/22 08:20 SP [id number]) OP-PT Subjective Patient Comments Patient Comments Pt reports met with doc and got results with MRI of back. New back pain and burning sensation down back of legs past couple of days. Goes to [employer] and does different body areas working out, walks about 22 miles a week and approx almost 4 mph 6 days a week. Yesterday walked 3.5 miles, does 3deg decline to work quads. Pt reports utilizes machines mostly due to free weights irritates his neck, previous injuries. Pt has been having to drive to [place] and today [facility] [place]. PT-OP-K Range of Motion Start: 07/18/22 12:42 Freq: Status: Active Protocol: Document 07/19/22 07:35 AMB (Rec: 07/19/22 08:11 AMB [id number]) Lumbar Spine Range of Motion Lumbar Spine Active Percentage Testing Position Standing Flexion 50 Extension 75 Lateral Flexion Left 100 Lateral Flexion Right 75 Comments pain with coming back up from flexion, pain with R sidebending PT-OP-M Strength Start: 07/18/22 12:42 Freq: Status: Active Protocol: Document 07/19/22 07:35 AMB (Rec: 07/19/22 08:11 AMB [id number]) Hip Strength Hip Manual Muscle Testing Right Flexion (L2) 4+ Good+ Extension (S1) 4+ Good+ Abduction 4+ Good+ Left Flexion (L2) 4+ Good+ Extension (S1) 4+ Good+ Abduction 4+ Good+ Knee Strength Knee Manual Muscle Testing Right Flexion (S2) 5 Normal Extension (L3) 5 Normal Left Flexion (S2) 5 Normal Extension (L3) 5 Normal Ankle/Foot Strength Ankle and Foot Manual Muscle Testing Right Dorsiflexion (L4) 5 Normal Plantarflexion (S1) 5 Normal Left Dorsiflexion (L4) 5 Normal Plantarflexion (S1) 5 Normal PT-OP-T Assessment and Plan Start: 07/18/22 12:42 Freq: Status: Active Protocol: Document 11/30/22 14:50 AMB (Rec: 11/30/22 14:52 AMB [id number]) Physical Therapy Assessment Goals Two Impairment HEP Short Term Goal (STG) Hira will be independent with a HEP for core stability. STG Duration 5 weeks Sales And Service Advisor Goal (LTG) Hira will lift 20 pounds from the floor with good body mechanics without an increase in pain. LTG Duration 10 weeks One Impairment Positional tolerance Short Term Goal (STG) Hira will drive for 30 minutes with back pain of 3/10 or less. STG Duration 5 weeks Sales And Service Advisor Goal (LTG) Hira will roll in bed without an increase in back/leg pain. LTG Duration 10 weeks Assessment Summary Assessment Pt canceled his last two appointments. Physical Therapy Plan Discharge Physical Therapy Discharge Reasons No Longer Attending PT
== END 2022-12-01 14:13 | disposition home or self-care (01) ==
LOC: PHYS 07:30
PROVIDERS: Absent Provider Registered Nurse; Family Provider Student in an Organized Health Care Education/Training Program; PCP Registered Nurse; Referring Provider Family Medicine; Visit Provider Family Medicine
DX: M54.16 Radiculopathy, lumbar region (principal)
CPT/HCPCS: 97110; 97140; 97161

== ENCOUNTER → 2022-12-08 10:39 | Outpatient (CLI) | payer OTHER, SELFPAY ==
--- NOTE | 2022-12-08 | DI.RAD.S_ITS ---
PROCEDURE: XR LUMBAR SPINE 6V W BENDING INDICATIONS: Radiculopathy, lumbar region TECHNIQUE: 7 views of the lumbar spine acquired, including flexion and extension views. COMPARISON: [facility], CR, XR LUMBAR SPINE 2-3V, 06/23/2022, 16:02. FINDINGS: Bones: 5 nonrib-bearing vertebrae are present. Mild left convexity curvature centered at L3. Probable mild multilevel bony foraminal narrowing on oblique views. Mild-moderate multilevel degenerative changes with disc height loss, endplate spurring, and facet arthropathy. 2 millimeters retrolisthesis L5 on S1 which resolves with extension suggestive of dynamic instability at this level. No lumbar vertebral body compression fractures identified Soft tissues: Overlying bowel gas pattern is normal. No suspicious soft tissue calcifications. IMPRESSION: Multilevel degenerative changes of the lumbar spine Dictated by: Eric Sullivan M.D. on 12/08/2022 at 13:53 Approved by: Eric Sullivan M.D. on 12/08/2022 at 14:03
== END ==
PROVIDERS: Family Provider Student in an Organized Health Care Education/Training Program; PCP Registered Nurse; Referring Provider Student in an Organized Health Care Education/Training Program; Visit Provider Student in an Organized Health Care Education/Training Program
DX: M47.26 Other spondylosis with radiculopathy, lumbar region (principal)
CPT/HCPCS: 72114

== ENCOUNTER → 2023-02-17 09:19 | Outpatient (ROUT) | payer OTHER, SELFPAY ==
[2023-02-17 09:52] LABS: Prothrombin Time 11.3 SECONDS (10.1-12.7)
[2023-02-17 09:55] LABS: PTT Partial Thromboplastin Tim 28 SECONDS (26-36)
== END ==
PROVIDERS: Family Provider Student in an Organized Health Care Education/Training Program; PCP Registered Nurse; Visit Provider Registered Nurse
DX: R23.3 Spontaneous ecchymoses (principal)
CPT/HCPCS: 85610; 85730

== ENCOUNTER → 2023-03-13 15:41 | Outpatient (CLI) | payer OTHER, SELFPAY ==
--- NOTE | 2023-03-13 15:42 | DI.MRI.S_ITS ---
PROCEDURE: MR LUMBAR SPINE WO CON INDICATIONS: Radiculopathy, lumbosacral region TECHNIQUE: Noncontrast sagittal T1 spin echo and T2 fast echo, sagittal STIR, and T2 fast spin echo through the lumbar spine. In cases with scoliosis, additional coronal T2 fast spin echo may be performed. COMPARISON: [facility], CR, XR LUMBAR SPINE 6V W BENDING, 12/08/2022, 10:55. [facility], MR, MR LUMBAR SPINE WO CON, 07/26/2022, 11:22. FINDINGS: Image quality: Excellent. Alignment and Curvature: There is normal bony alignment. Interval posterior laminectomy and posterior lateral myron and pedicle screw fixation at L5-S1. Bone Marrow: Marrow is of normal overall signal. No acute vertebral body compression fractures. Spinal Cord: Conus medullaris terminates at the L1-L2 level. Visualized cord demonstrates normal signal and size. Paraspinous Soft Tissues: No paravertebral masses. T12-L1: Normal appearance. L1-L2: Normal appearance. L2-L3: No canal stenosis or foraminal stenosis. L3-L4: No significant change. Mild facet hypertrophy. Epidural lipomatosis. No canal stenosis or foraminal stenosis. L4-L5: Progressive findings. Disc bulge. Facet hypertrophy. Epidural lipomatosis. Moderate canal stenosis. No significant foraminal stenosis. There is right foraminal annulus tear plus disc bulge. The foraminal annulus tear and disc bulge are unchanged. L5-S1: Interval posterior laminectomy and posterior lateral fusion and interbody spacer placement. No canal stenosis. Moderate bilateral foraminal narrowing, as before. IMPRESSION: 1. Interval posterior laminectomy and posterior lateral fusion at L5-S1. 2. Interval worsening of canal stenosis at L4-L5, now moderate, secondary to disc bulge, epidural lipomatosis, and facet hypertrophy. 3. Multilevel foraminal narrowing as described above. Dictated by: Solo Black M.D. on 03/13/2023 at 19:11 Approved by: Solo Black M.D. on 03/13/2023 at 19:18
== END ==
PROVIDERS: Family Provider Student in an Organized Health Care Education/Training Program; PCP Registered Nurse; Referring Provider Neurological Surgery; Visit Provider Neurological Surgery
DX: M51.16 Intervertebral disc disorders with radiculopathy, lumbar region (principal); M47.26 Other spondylosis with radiculopathy, lumbar region; M48.061 Spinal stenosis, lumbar region without neurogenic claudication; Z98.1 Arthrodesis status
CPT/HCPCS: 72148

== ENCOUNTER → 2023-06-13 08:06 | Outpatient (CLI) | payer OTHER, SELFPAY ==
--- NOTE | 2023-06-13 08:10 | DI.RAD.S_ITS ---
PROCEDURE: XR ACUTE ABDOMEN SERIES INDICATIONS: Calculus of kidney TECHNIQUE: One view chest and two views of the abdomen were acquired. COMPARISON: None. FINDINGS: Surgical changes and devices: Spinal fusion hardware is noted in the lower cervical spine and the lower lumbar spine. Metallic markers are seen projecting over the pelvis. Chest: Lungs are clear. Heart size is normal. No pleural effusions. No pneumoperitoneum. Abdomen: Bowel gas pattern is normal. No suspicious calcifications. Visualized solid organ contours appear normal. Bones: No suspicious bony lesions. IMPRESSION: No radiopaque renal calculus is seen. Approved by: Eric Gray M.D. on 06/13/2023 at 11:38
--- NOTE | 2023-06-13 08:10 | DI.US.S_ITS ---
PROCEDURE: US RENAL COMPLETE INDICATIONS: CALCIUM OXALATE STONES TECHNIQUE: Real-time scanning was performed of the kidneys and bladder, with image documentation. COMPARISON: None. FINDINGS: Kidneys: Kidneys are normal in size. Right kidney measures 12.3 cm long; left kidney measures 11.4 cm long. Right renal cortical thickness is 1.3 cm; left renal cortical thickness is 2.0 cm. Renal cortical echotexture is normal. No hydronephrosis or nephrolithiasis. No suspicious solid mass lesions. Bilateral subcentimeter simple renal cysts. Bladder: Pre-void bladder volume is 189 mL. Post-void residual is 15 mL. Pre-void images demonstrate no intraluminal masses or stones. On pre-void images, bilateral ureteral jets are noted with color Doppler interrogation. (Of note, ureteral jets may not be detectable in up to 25% of cases due to insufficient differences in specific gravity between ureteral and bladder urine). Miscellaneous: No free pelvic fluid. IMPRESSION: No hydronephrosis or nephrolithiasis. Approved by: Eric Gray M.D. on 06/13/2023 at 11:36
== END ==
LOC: US 08:08
PROVIDERS: Family Provider Student in an Organized Health Care Education/Training Program; PCP Registered Nurse; Referring Provider Registered Nurse; Visit Provider Registered Nurse
DX: N20.0 Calculus of kidney (principal)
CPT/HCPCS: 74022; 76770

== ENCOUNTER → 2023-06-22 19:50 | Outpatient (CLI) | payer OTHER, SELFPAY ==
--- NOTE | 2023-06-22 | DI.MRI.S_ITS ---
PROCEDURE: MR SHOULDER RT WO CON INDICATIONS: unspecified rotator cuff tear or rupture TECHNIQUE: Noncontrast oblique coronal T2 fast spin echo with fat saturation, oblique sagittal T1 spin echo and T2 fast spin echo with fat saturation, axial T1 spin echo and T2 fast spin echo with fat saturation through the shoulder. COMPARISON: [facility] [place], CR, XR SHOULDER 2+ VIEWS RIGHT, 06/14/2023, 8:42. FINDINGS: Image quality: Excellent. Rotator cuff: There is full-thickness focal tear of the distal subscapularis tendon at the humeral attachment, with accompanying longitudinal tear and severe tendinosis. There is low-grade partial-thickness tear of the supraspinatus tendon from musculotendinous junction to footprint primarily involving the bursal surface. There is calcific tendinitis of the supraspinatus tendon in the area of humeral insertion. No supraspinatus tendon retraction or muscle atrophy. There is low-grade partial-thickness tear of the distal infraspinatus tendin. Bones and bursae: No bone marrow contusions or fractures. Moderate acromioclavicular and glenohumeral joint degeneration. The acromion demonstrates conventional anatomy, without an os acromiale. Small glenohumeral joint effusion. There is a small subacromial-subdeltoid bursal fluid likely related to rotator cuff tendon tear. Capsule and soft tissues: There is degenerative fraying of the glenoid labrum. There is moderate tendinosis of the long head of the biceps tendon which demonstrates normal location and morphology. The rotator interval appears normal, without fibrosis. The coracohumeral ligament is normal in thickness. IMPRESSION: 1. Full-thickness tear of the distal subscapularis tendon at the humeral attachment. There is also longitudinal tear and severe subscapularis tendinosis. 2. Low-grade partial-thickness tear of the supraspinatus and infraspinatus tendons. There is calcific tendinitis of the supraspinatus tendon at the humeral insertion. 3. No rotator cuff muscle atrophy. 4. Moderate tendinosis of the long head of the biceps tendon. 5. Moderate acromioclavicular and glenohumeral joint degeneration. 6. Small glenohumeral joint effusion. Dictated by: Kareem Olson M.D. on 06/23/2023 at 14:12 Approved by: Kareem Olson M.D. on 06/23/2023 at 14:26
== END ==
LOC: MRI 19:51
PROVIDERS: Family Provider Student in an Organized Health Care Education/Training Program; PCP Registered Nurse; Referring Provider Student in an Organized Health Care Education/Training Program; Visit Provider Orthopaedic Surgery
DX: M75.121 Complete rotator cuff tear or rupture of right shoulder, not specified as traumatic (principal); M75.31 Calcific tendinitis of right shoulder; M19.011 Primary osteoarthritis, right shoulder; M25.411 Effusion, right shoulder
CPT/HCPCS: 73221

== ENCOUNTER 2023-08-08 08:15 | Outpatient (RCR) | payer OTHER, SELFPAY ==
--- NOTE | 2023-07-18 18:17 | PT.OIE ---
Current Diagnoses Other specified joint disorders, right shoulder (07/18/23) Strain of muscle(s) and tendon(s) of the rotator cuff of right shoulder, subsequent encounter (07/18/23) Past Medical History (Last Reviewed 06/25/20 @ 17:12 by Nahum Miranda MD) Asthma Past Surgical History (Last Reviewed 06/25/20 @ 17:12 by Nahum Miranda MD) H/O hernia repair S/P cervical spinal fusion Visit Care Team Role Provider Type ADRIANA Hager Primary Care Provider Non-Staff Specialty: Family Practice Address: [address] [place] [address] [place], [address] Email: Sigrid Gill MD Family Provider Physician Specialty: Family Practice Address: [address] [place] [address], [facility] [place] [place], [address] Email: [email or web address] Allan Schroeder MD Attending Provider Physician Referring Provider Specialty: Orthopedics Orthopedic Surgery Address: [address] [place] [address], [id number] Email: [email or web address] Physical Therapy Initial Evaluation PT-OP-A Visit Information Start: 07/14/23 17:17 Freq: Status: Active Protocol: Document 07/18/23 08:20 LRN (Rec: 07/18/23 09:52 LRN [id number]) Out-Patient Physical Therapy Visit Information Visit Information Visit Type Initial Evaluation Visit Start Time 08:20 Visit Stop Time 09:04 Visit Number 05/16 Evaluation Information Evaluation Date 07/18/23 Precautions Precautions Neck fusion, hernia x 3, back pain PT-OP-B Current Condition Start: 07/14/23 17:17 Freq: Status: Active Protocol: Document 07/18/23 08:20 LRN (Rec: 07/18/23 09:52 LRN [id number]) Current Condition History of Current Condition Onset Date 07/10/23 Current Complaints R shoulder pain and is to be in sling for 12 weeks. History of Current Condition Pt reports being 7 days post op R RC repair as an outpatient (day) surgery in [place], after suffering an injury while exercising ( butterfly ex), stating he did a wgt too high. States he is having trouble brushing his teeth. At home has been living with an ice pack (20' on, 40' off). He reports walking a lot, keeping his arm in the sling to be as still as possible, and is exercising his forearm by doing ROM and hand squeezes. Pt reports his spouse is a retired PT and can assist at home with exercises. Pt denies tenderness in the posterior neck, R UT/Supraspinatus, R Rhomboids, and R anterior pectoralis major/minor. He has discomfort with palpation around his anterior shoulder incision. Treatment Goals Patient/Caregiver Goals Pt reports MD instructed goals are: 0-8wks PROM for FROM, walking, and lifting max 1 cup of coffee; after 12 wks starting at gym strengthening (around September or October light wgt exercise). 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 PT-OP-C Subjective Start: 07/14/23 17:17 Freq: Status: Active Protocol: Document 07/18/23 08:20 LRN (Rec: 07/18/23 17:42 LRN [id number]) Patient Questionnaires Quick Dash- Upper Extremity Quick Dash UE Score 81.81 Quick Dash UE Impairment 80 to 99% Impaired (Score 80- 99) OP-PT Pain Assessment Pain Assessment Grid Paper Pain Assessment Grid Completed Yes Location R shoulder Pain Location Details Top and anterior R shoulder Intensity 7 Scale Used Numeric (0 - 10) PT-OP-J Posture/Palpation/Skin Start: 07/14/23 17:17 Freq: Status: Active Protocol: Document 07/18/23 08:20 LRN (Rec: 07/18/23 09:52 LRN [id number]) Posture Evaluation Position Sitting Head/C-Spine Posture Neutral Position Shoulder Posture (R) Forward Comments Posture Comments Level shoulders, R arm in sling. Palpation Assessment Location R infraspinatus Palpation Location Tender at muscle belly Palpation Findings Tenderness PT-OP-K Range of Motion Start: 07/14/23 17:17 Freq: Status: Active Protocol: Document 03/19/24 08:20 LRN (Rec: 03/19/24 09:52 [facility] [id number]) Shoulder Goniometric Range of Motion Shoulder Right Passive Testing Position Standing Flexion 80 Comments Deferred further measurements due recent R shoulder surgery. Right Active Comments Deferred due to recent surgery . Left Active Shoulder ROM WFL Yes Testing Position Sitting Flexion 160 Extension 48 Abduction 180 External Rotation at 0 degrees Abduction 53 Internal Rotation Behind Back (text) L4 Comments Behind head reach: T1-T2 Reaching over shoulder: under scapular spine. Elbow/Forearm Range of Motion Elbow/Forearm Left Passive ROM Testing Position Standing Elbow Flexion (degrees) 134 Elbow Extension (degrees) 0 Right Passive ROM Testing Position Standing Elbow Flexion (degrees) 120 Elbow Extension (degrees) 3 PT-OP-M Strength Start: 07/14/23 17:17 Freq: Status: Active Protocol: Document 07/18/23 08:20 LRN (Rec: 07/18/23 09:52 [facility] [id number]) Shoulder Strength Shoulder Manual Muscle Testing Right Comments Testing deferred due to recent R shoulder surgery. Left Comments Strength is 5/5 Elbow/Forearm Strength Elbow and Forearm Manual Muscle Testing Right Comments Pt was demonstrated actively flexing his elbow, spontaneously when he was removing his sling. Reviewed w/pt AAROM of elbow until protocol received. Left Comments Strength is 5/5 PT-OP-Q Treatments Start: 07/14/23 17:17 Freq: Status: Active Protocol: Document 07/18/23 08:20 LRN (Rec: 07/18/23 09:52 [facility] [id number]) Therapeutic Exercises Supine Exercises R shoulder PROM Supine Exercise Name Passive flexion Side right Reps/Minutes 2x Sitting Exercises R wrist AROM Sitting Exercise Name Wrist flex/ext/UD/RD Side right Reps/Minutes 2x each Comments ROM limited bilaterally R sup/Pron Sitting Exercise Name AA Supination/Pronation to tolerance Side right Reps/Minutes 2x Comments Pt limited in mobility bilaterally R elbow AAROM Sitting Exercise Name AAROM for flex/ext Side right Reps/Minutes 2x Standing Exercises Codman Standing Exercise Name Codman's Ex Side right Reps/Minutes 3' Self-Care/Home Management Treatment Education Patient Education Home Exercise Program Other Education Discussed results of evaluation, goals, and plan of care (POC) with pt, discussed attendance/cx/dns policy; pt agreeable to goals, attendance /cx/dns policy and POC. Discussed pain management with use of cold pack. Activities Self-Care/Home Management Activities I/S pt in R shoulder Codman Ex for flex only, active assistive elbow flexion and active forearm/wrist/finger AROM. PT-OP-T Assessment and Plan Start: 07/14/23 17:17 Freq: Status: Active Protocol: Document 07/18/23 08:20 LRN (Rec: 07/18/23 09:52 LRN [id number]) Physical Therapy Assessment Rehab Potential Rehabilitation Potential Good Evaluation Complexity Number of Personal Factors/Comorbidities 1-2 Number of Body Systems Impaired 4 or More Clinical Presentation at Evaluation Evolving Impairments Impairments Activity Tolerance,Functional Activities,Functional Mobility ,Pain,ROM,Soft Tissue Mobility ,Strength Goals Three Impairment Decreased R shoulder strength Short Term Goal (STG) In 8 wks pt will be able to lifting a weight of a cup of coffee. STG Duration 8 wks-09/15/23 [employer]or Goal (LTG) 12-24 wks pt will be able to start gym strengthening ( around September or October light wgt exercise). LTG Duration 12 wks-10/10/23 Two Impairment Decreased R shoulder PROM & AROM Short Term Goal (STG) Full PROM of R shoulder in 8 wks. STG Duration 8 wks-09/15/23 [employer]or Goal (LTG) Full AROM of R shoulder in 8- 12 weeks. LTG Duration 12 wks-10/10/23 One Impairment Pt lacks appropriate self care HEP Short Term Goal (STG) Pt will be educated in HEP of R shoulder PROM/AAROM ex's ( with spouse to assist) once protocol is received from referring physician. STG Duration 8 wks-09/15/23 [employer] Goal (LTG) Pt will be educated in self care HEP of R shoulder light strengthening ex's per MD protocol (once received). LTG Duration 12 wks-10/10/23 Assessment Summary Assessment Pt is a 62 yo male who is 1 wk s/p R subscapularis repair of complete tear. Surgical notes and referring physician protocol is unavailable. Referral received is for eval and treat, HEP, ROM, strengthening. A message has been left with physician office requesting protocol if one is available. The pt reports his spouse is a retired physical therapist, and because of financial reasons is choosing to be seen 1x/week after the first 1-2 weeks of instructions for PROM ex's. He will increase therapy to 2x/week once he is cleared to do more active strengthening exercises. The pt as expected is very limited with R shoulder PROM. He reports there was surgical intervention with his biceps muscle, but again operative report was unavailable. It was noted that the pt was actively lifting and using his R hand to help remove his sling; therefore the pt may be somewhat non-compliant with PROM instructions. The pt will benefit from skilled physical therapy to progress him with improving his R shoulder ROM and when cleared, improving his strength for return to a functional level with his shoulder. Physical Therapy Plan Frequency and Duration Frequency of Treatment 16 visits Duration of treatment (weeks) 12 Plan of Care Start Date 07/18/23 Plan of Care End Date 10/10/23 Therapeutic Interventions Therapeutic Interventions Home Exercise Program,Manual Therapy,Neuromuscular Re- education,Self-Care/Home Management,Soft Tissue Mobilization,Taping, Therapeutic Activities, Therapeutic Exercises Modalities Cold Pack/Ice Massage,Electric Stimulation,Hot Packs Next Visit Focus/Plan Next Note Type Treatment Note Next Visit Plan Next: Assess C. AROM & strength. Reach out to referring physician office for further clarification of his rehab protocol. Cont: PROM of R shoulder, AAROM Elbow, and active/strengthening of R forearm/wrist/hand. Postural education, HEP: Neck ROM ex's and Zackery rhomboid strengthening. Modalities of MH/CP/IFES as needed for pain.
--- NOTE | 2023-07-18 18:17 | PT.OPPOC ---
Physical, Occupational & Speech Therapy At [facility] Current Diagnoses Other specified joint disorders, right shoulder (07/18/23) Strain of muscle(s) and tendon(s) of the rotator cuff of right shoulder, subsequent encounter (07/18/23) Visit Care Team Role Provider Type ADRIANA Hager Primary Care Provider Non-Staff Specialty: [facility] Practice Address: [address] [place] [address], [address] Email: Sigrid Gill MD Family Provider Physician Specialty: [facility] Practice Address: [address] [place] [address], [facility], [address] Email: [email or web address] Allan Schroeder MD Attending Provider Physician Referring Provider Specialty: Orthopedics Orthopedic Surgery Address: [address] [place] [address], [address] Email: [email or web address] Plan Of Care PT-OP-T Assessment and Plan Start: 07/14/23 17:17 Freq: Status: Active Protocol: Document 07/18/23 08:20 LRN (Rec: 07/18/23 09:52 LRN [id number]) Physical Therapy Assessment Rehab Potential Rehabilitation Potential Good Evaluation Complexity Number of Personal Factors/Comorbidities 1-2 Number of Body Systems Impaired 4 or More Clinical Presentation at Evaluation Evolving Impairments Impairments Activity Tolerance,Functional Activities,Functional Mobility ,Pain,ROM,Soft Tissue Mobility ,Strength Goals Three Impairment Decreased R shoulder strength Short Term Goal (STG) In 8 wks pt will be able to lifting a weight of a cup of coffee. STG Duration 8 wks-09/15/23 [facility] Goal (LTG) 12-24 wks pt will be able to start gym strengthening ( around September or October light wgt exercise). LTG Duration 12 wks-10/10/23 Two Impairment Decreased R shoulder PROM & AROM Short Term Goal (STG) Full PROM of R shoulder in 8 wks. STG Duration 8 wks-09/15/23 Vp Clinical Research Goal (LTG) Full AROM of R shoulder in 8- 12 weeks. LTG Duration 12 wks-10/10/23 One Impairment Pt lacks appropriate self care HEP Short Term Goal (STG) Pt will be educated in HEP of R shoulder PROM/AAROM ex's ( with spouse to assist) once protocol is received from referring physician. STG Duration 8 wks-09/15/23 Vp Clinical Research Goal (LTG) Pt will be educated in self care HEP of R shoulder light strengthening ex's per MD protocol (once received). LTG Duration 12 wks-10/10/23 Assessment Summary Assessment Pt is a 62 yo male who is 1 wk s/p R subscapularis repair of complete tear. Surgical notes and referring physician protocol is unavailable. Referral received is for eval and treat, HEP, ROM, strengthening. A message has been left with physician office requesting protocol if one is available. The pt reports his spouse is a retired physical therapist, and because of financial reasons is choosing to be seen 1x/week after the first 1-2 weeks of instructions for PROM ex's. He will increase therapy to 2x/week once he is cleared to do more active strengthening exercises. The pt as expected is very limited with R shoulder PROM. He reports there was surgical intervention with his biceps muscle, but again operative report was unavailable. It was noted that the pt was actively lifting and using his R hand to help remove his sling; therefore the pt may be somewhat non-compliant with PROM instructions. The pt will benefit from skilled physical therapy to progress him with improving his R shoulder ROM and when cleared, improving his strength for return to a functional level with his shoulder. Physical Therapy Plan Frequency and Duration Frequency of Treatment 16 visits Duration of treatment (weeks) 12 Plan of Care Start Date 07/18/23 Plan of Care End Date 10/10/23 Therapeutic Interventions Therapeutic Interventions Home Exercise Program,Manual Therapy,Neuromuscular Re- education,Self-Care/Home Management,Soft Tissue Mobilization,Taping, Therapeutic Activities, Therapeutic Exercises Modalities Cold Pack/Ice Massage,Electric Stimulation,Hot Packs Next Visit Focus/Plan Next Note Type Treatment Note Next Visit Plan Next: Assess C. AROM & strength. Reach out to referring physician office for further clarification of his rehab protocol. Cont: PROM of R shoulder, AAROM Elbow, and active/strengthening of R forearm/wrist/hand. Postural education, HEP: Neck ROM ex's and Zackery rhomboid strengthening. Modalities of MH/CP/IFES as needed for pain. Plan of Care Dates Plan of Care Start Date 07/18/23 Plan of Care End Date 10/10/23 Electronically Signed by: Penny Juan, PT 07/18/23 2447 If you are in agreement with this Plan of Care, please return a signed and dated copy. I have reviewed this Plan of Care and certify that the skilled therapy services above are required to meet the patient?s needs. Physician Signature Date Printed Name and Credentials Clinical Instructor Signature Printed Name and Credentials
--- NOTE | 2023-07-25 16:45 | PT.OTN ---
Current Diagnoses Other specified joint disorders, right shoulder (07/25/23) Strain of muscle(s) and tendon(s) of the rotator cuff of right shoulder, subsequent encounter (07/25/23) Physical Therapy Treatment Note PT-OP-A Visit Information Start: 07/14/23 17:17 Freq: Status: Active Protocol: Document 07/25/23 08:17 LRN (Rec: 07/25/23 09:00 LRN [id number]) Out-Patient Physical Therapy Visit Information Visit Information Visit Type Treatment Note Visit Start Time 08:17 Visit Stop Time 08:58 Visit Number / Evaluation Information Evaluation Date 07/18/23 Precautions Precautions Neck fusion, hernia x 3, back pain PT-OP-B Current Condition Start: 07/14/23 17:17 Freq: Status: Active Protocol: Document 07/18/23 08:20 LRN (Rec: 07/18/23 09:52 LRN [id number]) Current Condition History of Current Condition Onset Date 07/10/23 Current Complaints R shoulder pain and is to be in sling for 12 weeks. History of Current Condition Pt reports being 7 days post op R RC repair as an outpatient (day) surgery in [place], after suffering an injury while exercising ( butterfly ex), stating he did a wgt too high. States he is having trouble brushing his teeth. At home has been living with an ice pack (20' on, 40' off). He reports walking a lot, keeping his arm in the sling to be as still as possible, and is exercising his forearm by doing ROM and hand squeezes. Pt reports his spouse is a retired PT and can assist at home with exercises. Pt denies tenderness in the posterior neck, R UT/Supraspinatus, R Rhomboids, and R anterior pectoralis major/minor. He has discomfort with palpation around his anterior shoulder incision. Treatment Goals Patient/Caregiver Goals Pt reports MD instructed goals are: 0-8wks PROM for FROM, walking, and lifting max 1 cup of coffee; after 12 wks starting at gym strengthening (around September or October light wgt exercise). 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 PT-OP-C Subjective Start: 07/14/23 17:17 Freq: Status: Active Protocol: Document 07/25/23 08:17 LRN (Rec: 07/25/23 09:00 LRN [id number]) OP-PT Subjective Patient Comments Patient Comments States saw MD yesterday and was given protocol. States nurse practitioner thought he was doing fine. States he is having trouble sleeping. PT-OP-J Posture/Palpation/Skin Start: 07/14/23 17:17 Freq: Status: Active Protocol: Document 07/18/23 08:20 LRN (Rec: 07/18/23 09:52 LRN [id number]) Posture Evaluation Position Sitting Head/C-Spine Posture Neutral Position Shoulder Posture (R) Forward Comments Posture Comments Level shoulders, R arm in sling. Palpation Assessment Location R infraspinatus Palpation Location Tender at muscle belly Palpation Findings Tenderness PT-OP-K Range of Motion Start: 07/14/23 17:17 Freq: Status: Active Protocol: Document 07/25/23 08:17 LRN (Rec: 07/25/23 09:00 LRN [id number]) Shoulder Goniometric Range of Motion Shoulder Left Passive Testing Position Supine Flexion 150 Abduction 145 External Rotation at 90 degrees 85 Abduction External Rotation at 45 degrees 60 Abduction External Rotation at 0 degrees Abduction 58 Right Passive Testing Position Supine Flexion 85 Abduction 53 External Rotation at 0 degrees Abduction 0 Comments Flex: 95 deg's with pendulum swing. Per protocol pt ER limited to 30 deg's or greater less ROM than L shoulder. PT-OP-M Strength Start: 07/14/23 17:17 Freq: Status: Active Protocol: Document 07/18/23 08:20 LRN (Rec: 07/18/23 09:52 LRN [id number]) Shoulder Strength Shoulder Manual Muscle Testing Right Comments Testing deferred due to recent R shoulder surgery. Left Comments Strength is 5/5 Elbow/Forearm Strength Elbow and Forearm Manual Muscle Testing Right Comments Pt was demonstrated actively flexing his elbow, spontaneously when he was removing his sling. Reviewed w/pt AAROM of elbow until protocol received. Left Comments Strength is 5/5 PT-OP-Q Treatments Start: 07/14/23 17:17 Freq: Status: Active Protocol: Document 07/25/23 08:17 LRN (Rec: 07/25/23 09:00 LRN [id number]) Therapeutic Exercises Supine Exercises R shoulder PROM Supine Exercise Name Passive flexion, AB, ER ( limits below) Side right Reps/Minutes 27' Comments PROM no greater than 90 flex, 90 AB, <28 ER. Sitting Exercises Shdr shrug w/retraction Sitting Exercise Name Shoulder circles Side bilateral Reps/Minutes 15x 2 R wrist AROM Sitting Exercise Name Wrist flex/ext/Circles Side right Reps/Minutes 15x each Comments ROM limited bilaterally R sup/Pron Sitting Exercise Name AA Supination/Pronation to tolerance Side right Reps/Minutes 15x Comments Cued to have forearm next to body R elbow AAROM Sitting Exercise Name AAROM for flex/ext Side right Reps/Minutes 10x Standing Exercises Codman Standing Exercise Name Codman's Ex Side right Reps/Minutes 5' Comments Flex max 95 deg's. PT-OP-T Assessment and Plan Start: 07/14/23 17:17 Freq: Status: Active Protocol: Document 07/25/23 08:17 LRN (Rec: 07/25/23 09:00 N [id number]) Physical Therapy Assessment Goals Three Impairment Decreased R shoulder strength Short Term Goal (STG) In 8 wks pt will be able to lifting a weight of a cup of coffee. STG Duration 8 wks-09/15/23 Coal Shoveler Goal (LTG) 12-24 wks pt will be able to start gym strengthening ( around September or October light wgt exercise). LTG Duration 12 wks-10/10/23 Two Impairment Decreased R shoulder PROM & AROM Short Term Goal (STG) Full PROM of R shoulder in 8 wks. STG Duration 8 wks-09/15/23 Alf Goal (LTG) Full AROM of R shoulder in 8- 12 weeks. LTG Duration 12 wks-10/10/23 One Impairment Pt lacks appropriate self care HEP Short Term Goal (STG) Pt will be educated in HEP of R shoulder PROM/AAROM ex's ( with spouse to assist) once protocol is received from referring physician. STG Duration 8 wks-09/15/23 Coal Shoveler Goal (LTG) Pt will be educated in self care HEP of R shoulder light strengthening ex's per MD protocol (once received). LTG Duration 12 wks-10/10/23 Assessment Summary Assessment Pt is a 62 yo male who tomorrow is 13 days s/p R subscapularis repair of complete tear. Flex max w/ pendulum is 95 deg's. Increased pain after sup PROM of R shoulder; therefore other ROM very limited. Pt comes with MD protocol, which the pt 's who is a retired PT will be helping pt with ex's at home. Pt is quite limited in mobility at this time. Physical Therapy Plan Frequency and Duration Frequency of Treatment 16 visits Duration of treatment (weeks) 12 Plan of Care Start Date 07/18/23 Plan of Care End Date 10/10/23 Next Visit Focus/Plan Next Note Type Treatment Note Next Visit Plan Next: Assess C. AROM & strength. Follow MD protocol given today: 0-14 days: Pain controll, full elbow, wrist/finger ROM ( shoulder in neutral). Supported pendulum. Active Shldr shrugs/scap retract. AAROM flex-90, AB-90, ER < 30deg's of L shdr. Immobilizer 6 wks at all times . 2-6 wks: 90 deg's AAROM, full pendulums, same as previously , AAROM sup w/wand, ER as yobani, IR as yobani(if no subscapularis repair, wand behind back), 1 -2 finger isomx6 (fist in box) . Stationar bike w/sling. Postural education, HEP: Neck ROM ex's and Zackery rhomboid strengthening. Modalities of MH/CP as needed for pain.
--- NOTE | 2023-07-27 09:35 | PT.OTN ---
Current Diagnoses Other specified joint disorders, right shoulder (07/27/23) Strain of muscle(s) and tendon(s) of the rotator cuff of right shoulder, subsequent encounter (07/27/23) Physical Therapy Treatment Note PT-OP-A Visit Information Start: 07/14/23 17:17 Freq: Status: Active Protocol: Document 07/27/23 08:20 LRN (Rec: 07/27/23 09:35 LRN [id number]) Out-Patient Physical Therapy Visit Information Visit Information Visit Type Treatment Note Visit Start Time 08:20 Visit Stop Time 09:20 Visit Number / Evaluation Information Evaluation Date 07/18/23 Precautions Precautions Neck fusion with cage (C4, C5, C6), hernia x 3, back pain PT-OP-B Current Condition Start: 07/14/23 17:17 Freq: Status: Active Protocol: Document 07/18/23 08:20 LRN (Rec: 07/18/23 09:52 LRN [id number]) Current Condition History of Current Condition Onset Date 07/10/23 Current Complaints R shoulder pain and is to be in sling for 12 weeks. History of Current Condition Pt reports being 7 days post op R RC repair as an outpatient (day) surgery in [place], after suffering an injury while exercising ( butterfly ex), stating he did a wgt too high. States he is having trouble brushing his teeth. At home has been living with an ice pack (20' on, 40' off). He reports walking a lot, keeping his arm in the sling to be as still as possible, and is exercising his forearm by doing ROM and hand squeezes. Pt reports his spouse is a retired PT and can assist at home with exercises. Pt denies tenderness in the posterior neck, R UT/Supraspinatus, R Rhomboids, and R anterior pectoralis major/minor. He has discomfort with palpation around his anterior shoulder incision. Treatment Goals Patient/Caregiver Goals Pt reports MD instructed goals are: 0-8wks PROM for FROM, walking, and lifting max 1 cup of coffee; after 12 wks starting at gym strengthening (around September or October light wgt exercise). 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 PT-OP-C Subjective Start: 07/14/23 17:17 Freq: Status: Active Protocol: Document 07/27/23 08:20 LRN (Rec: 07/27/23 09:35 LRN [id number]) OP-PT Subjective Patient Comments Patient Comments States more sore. R shoulder pain is 4-5/10 and took pain meds before therapy. PT-OP-J Posture/Palpation/Skin Start: 07/14/23 17:17 Freq: Status: Active Protocol: Document 07/18/23 08:20 LRN (Rec: 07/18/23 09:52 LRN [id number]) Posture Evaluation Position Sitting Head/C-Spine Posture Neutral Position Shoulder Posture (R) Forward Comments Posture Comments Level shoulders, R arm in sling. Palpation Assessment Location R infraspinatus Palpation Location Tender at muscle belly Palpation Findings Tenderness PT-OP-K Range of Motion Start: 07/14/23 17:17 Freq: Status: Active Protocol: Document 07/25/23 08:17 LRN (Rec: 07/25/23 09:00 LRN [id number]) Shoulder Goniometric Range of Motion Shoulder Left Passive Testing Position Supine Flexion 150 Abduction 145 External Rotation at 90 degrees 85 Abduction External Rotation at 45 degrees 60 Abduction External Rotation at 0 degrees Abduction 58 Right Passive Testing Position Supine Flexion 85 Abduction 53 External Rotation at 0 degrees Abduction 0 Comments Flex: 95 deg's with pendulum swing. Per protocol pt ER limited to 30 deg's or greater less ROM than L shoulder. PT-OP-M Strength Start: 07/14/23 17:17 Freq: Status: Active Protocol: Document 07/18/23 08:20 LRN (Rec: 07/18/23 09:52 LRN [id number]) Shoulder Strength Shoulder Manual Muscle Testing Right Comments Testing deferred due to recent R shoulder surgery. Left Comments Strength is 5/5 Elbow/Forearm Strength Elbow and Forearm Manual Muscle Testing Right Comments Pt was demonstrated actively flexing his elbow, spontaneously when he was removing his sling. Reviewed w/pt AAROM of elbow until protocol received. Left Comments Strength is 5/5 PT-OP-Q Treatments Start: 07/14/23 17:17 Freq: Status: Active Protocol: Document 07/27/23 08:20 LRN (Rec: 07/27/23 09:35 LRN [id number]) Therapeutic Exercises Supine Exercises Wrist strengthening Supine Exercise Name Wrist flex (arm straight), Ext & RD (elbow bent), UD ( pronated forearm) Side right Reps/Minutes 10-15x Each Comments Cued not to move into pain. AA elbow curls Supine Exercise Name AA Elbow curls Side right Equipment Used Dowel Reps/Minutes 15x Comments Pt cued not to work into pain AAROM R shdr Supine Exercise Name AAROM: ER, AB (few reps) Side right Equipment Used Dowel Reps/Minutes 10 SH/10 SH rest x 5' Comments Stabilizing elbow close to 0 deg's AB, AB yobani ~10 deg's. Cued not pain. Shldr shrug Supine Exercise Name Shoulder Shrug Side right Reps/Minutes 2' Comments Cued not to move into pain. Scapular pinches Supine Exercise Name Scapular Pinches Side right Reps/Minutes 2' Comments Cued not to move into pain. R shoulder PROM Supine Exercise Name With CP, Passive flexion, AB, ER (limits below) Side right Reps/Minutes 18' Comments PROM no greater than 90 flex, 90 AB, <28 ER. Self-Care/Home Management Treatment Education Other Education 15' to fit R shoulder AB brace at pt request. Pt no longer had instructions for fit. Unable to access information from internet for brace (name of brace not identified on brace). Had assist of Simona Bernal PTA & Elvia Vargas, PT. Able to place brace on pt in manner he stated was correct. Activities Self-Care/Home Management Activities I/S pt to return to referring physician group to have brace re-examined for fit. Requested pt to take picture of proper fit for future applications. PT-OP-T Assessment and Plan Start: 07/14/23 17:17 Freq: Status: Active Protocol: Document 07/27/23 08:20 LRN (Rec: 07/27/23 09:35 N [id number]) Physical Therapy Assessment Goals Three Impairment Decreased R shoulder strength Short Term Goal (STG) In 8 wks pt will be able to lifting a weight of a cup of coffee. STG Duration 8 wks-09/15/23 Wire Brush Operator Goal (LTG) 12-24 wks pt will be able to start gym strengthening ( around September or October light wgt exercise). LTG Duration 12 wks-10/10/23 Two Impairment Decreased R shoulder PROM & AROM Short Term Goal (STG) Full PROM of R shoulder in 8 wks. STG Duration 8 wks-09/15/23 Wire Brush Operator Goal (LTG) Full AROM of R shoulder in 8- 12 weeks. LTG Duration 12 wks-10/10/23 One Impairment Pt lacks appropriate self care HEP Short Term Goal (STG) Pt will be educated in HEP of R shoulder PROM/AAROM ex's ( with spouse to assist) once protocol is received from referring physician. STG Duration 8 wks-09/15/23 Correction Goal (LTG) Pt will be educated in self care HEP of R shoulder light strengthening ex's per MD protocol (once received). LTG Duration 12 wks-10/10/23 Assessment Summary Assessment 62 yo male who tomorrow is 15 days s/p R subscapularis repair of complete tear. Neck mobility mildly restricted with R rot & L SB, but limited due to previous fusion. PROM sup: R shdr: Flex 90, ER 0, AB ~ 55 deg's. Pt tends to allow push into pain unless monitored closely. Physical Therapy Plan Frequency and Duration Frequency of Treatment 16 visits Duration of treatment (weeks) 12 Plan of Care Start Date 07/18/23 Plan of Care End Date 10/10/23 Next Visit Focus/Plan Next Note Type Treatment Note Next Visit Plan Next: Assess C. strength. Follow MD protocol given today : 0-14 days: Pain controll, full elbow, wrist/finger ROM ( shoulder in neutral). Supported pendulum. Active Shldr shrugs/scap retract. AAROM flex-90, AB-90, ER < 30deg's of L shdr. Immobilizer 6 wks at all times . 2-6 wks: 90 deg's AAROM, full pendulums, same as previously , AAROM sup w/wand, ER as yobani, IR as yobani(if no subscapularis repair, wand behind back), 1 -2 finger isomx6 (fist in box) . Stationar bike w/sling. Postural education, HEP: Neck ROM ex's and Zackery rhomboid strengthening. Modalities of MH/CP as needed for pain.
--- NOTE | 2023-08-01 08:33 | PT.OTN ---
Current Diagnoses Other specified joint disorders, right shoulder (08/01/23) Strain of muscle(s) and tendon(s) of the rotator cuff of right shoulder, subsequent encounter (08/01/23) Physical Therapy Treatment Note PT-OP-A Visit Information Start: 07/14/23 17:17 Freq: Status: Active Protocol: Document 08/01/23 07:29 LRN (Rec: 08/01/23 08:33 LRN [id number]) Out-Patient Physical Therapy Visit Information Visit Information Visit Type Treatment Note Visit Start Time 07:29 Visit Stop Time 08:27 Visit Number 07/14 Evaluation Information Evaluation Date 07/18/23 Precautions Precautions Neck fusion with cage (C4, C5, C6), hernia x 3, back pain PT-OP-B Current Condition Start: 07/14/23 17:17 Freq: Status: Active Protocol: Document 07/18/23 08:20 LRN (Rec: 07/18/23 09:52 LRN [id number]) Current Condition History of Current Condition Onset Date 07/10/23 Current Complaints R shoulder pain and is to be in sling for 12 weeks. History of Current Condition Pt reports being 7 days post op R RC repair as an outpatient (day) surgery in [place], after suffering an injury while exercising ( butterfly ex), stating he did a wgt too high. States he is having trouble brushing his teeth. At home has been living with an ice pack (20' on, 40' off). He reports walking a lot, keeping his arm in the sling to be as still as possible, and is exercising his forearm by doing ROM and hand squeezes. Pt reports his spouse is a retired PT and can assist at home with exercises. Pt denies tenderness in the posterior neck, R UT/Supraspinatus, R Rhomboids, and R anterior pectoralis major/minor. He has discomfort with palpation around his anterior shoulder incision. Treatment Goals Patient/Caregiver Goals Pt reports MD instructed goals are: 0-8wks PROM for FROM, walking, and lifting max 1 cup of coffee; after 12 wks starting at gym strengthening (around September or October light wgt exercise). 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 PT-OP-C Subjective Start: 07/14/23 17:17 Freq: Status: Active Protocol: Document 08/01/23 07:29 LRN (Rec: 08/01/23 08:33 LRN [id number]) OP-PT Subjective Patient Comments Patient Comments R shoulder pain rated 1/10, took pain med before treatment . PT-OP-J Posture/Palpation/Skin Start: 07/14/23 17:17 Freq: Status: Active Protocol: Document 07/18/23 08:20 LRN (Rec: 07/18/23 09:52 LRN [id number]) Posture Evaluation Position Sitting Head/C-Spine Posture Neutral Position Shoulder Posture (R) Forward Comments Posture Comments Level shoulders, R arm in sling. Palpation Assessment Location R infraspinatus Palpation Location Tender at muscle belly Palpation Findings Tenderness PT-OP-K Range of Motion Start: 07/14/23 17:17 Freq: Status: Active Protocol: Document 07/25/23 08:17 LRN (Rec: 07/25/23 09:00 LRN [id number]) Shoulder Goniometric Range of Motion Shoulder Left Passive Testing Position Supine Flexion 150 Abduction 145 External Rotation at 90 degrees 85 Abduction External Rotation at 45 degrees 60 Abduction External Rotation at 0 degrees Abduction 58 Right Passive Testing Position Supine Flexion 85 Abduction 53 External Rotation at 0 degrees Abduction 0 Comments Flex: 95 deg's with pendulum swing. Per protocol pt ER limited to 30 deg's or greater less ROM than L shoulder. PT-OP-M Strength Start: 07/14/23 17:17 Freq: Status: Active Protocol: Document 07/18/23 08:20 LRN (Rec: 07/18/23 09:52 LRN [id number]) Shoulder Strength Shoulder Manual Muscle Testing Right Comments Testing deferred due to recent R shoulder surgery. Left Comments Strength is 5/5 Elbow/Forearm Strength Elbow and Forearm Manual Muscle Testing Right Comments Pt was demonstrated actively flexing his elbow, spontaneously when he was removing his sling. Reviewed w/pt AAROM of elbow until protocol received. Left Comments Strength is 5/5 PT-OP-Q Treatments Start: 07/14/23 17:17 Freq: Status: Active Protocol: Document 08/01/23 07:29 LRN (Rec: 08/01/23 08:33 LRN [id number]) Therapeutic Exercises Supine Exercises R shoulder AAROM Supine Exercise Name Flex & AB - max 90 deg's, ER < 28 deg's Side right Reps/Minutes 10' Comments PROM no greater than 90 flex, 90 AB, <28 ER. AAROM R shdr Supine Exercise Name Flex & AB - max 90 deg's, ER < 28 deg's Resistance ~85 flex/AB tolerated Equipment Used table slides & dowel for ER Reps/Minutes 15' Comments Elbow 0 deg's AB for shlder ER Scapular pinches Supine Exercise Name Scapular Pinches Side right Reps/Minutes 3' Comments Cued not to move into pain. Self-Care/Home Management Treatment Activities Self-Care/Home Management Activities 30' spent trying to reposition and fix set up of R shoulder brace. Unable to fully position soft brace due to misplacement of straps. Pt finally requested to go back to office that originally fit soft brace. PT-OP-T Assessment and Plan Start: 07/14/23 17:17 Freq: Status: Active Protocol: Document 08/01/23 07:29 LRN (Rec: 08/01/23 08:33 LRN [id number]) Physical Therapy Assessment Goals Three Impairment Decreased R shoulder strength Short Term Goal (STG) In 8 wks pt will be able to lifting a weight of a cup of coffee. STG Duration 8 wks-09/15/23 Fur Blower Goal (LTG) 12-24 wks pt will be able to start gym strengthening ( around September or October light wgt exercise). LTG Duration 12 wks-10/10/23 Two Impairment Decreased R shoulder PROM & AROM Short Term Goal (STG) Full PROM of R shoulder in 8 wks. STG Duration 8 wks-09/15/23 Fur Blower Goal (LTG) Full AROM of R shoulder in 8- 12 weeks. LTG Duration 12 wks-10/10/23 One Impairment Pt lacks appropriate self care HEP Short Term Goal (STG) Pt will be educated in HEP of R shoulder PROM/AAROM ex's ( with spouse to assist) once protocol is received from referring physician. STG Duration 8 wks-09/15/23 Fur Blower Goal (LTG) Pt will be educated in self care HEP of R shoulder light strengthening ex's per MD protocol (once received). LTG Duration 12 wks-10/10/23 Assessment Summary Assessment 62 yo male who is 20 days (wk 2-6 of protocol) s/p R subscapularis repair of complete tear. He cont's to have trouble with fit and comfort with R shoulder sling. Unable to fit properly R shoulder sling due to it appears a piece may be missing or used in the wrong location initially; therefore pt sent back to physician office for refit. Physical Therapy Plan Frequency and Duration Frequency of Treatment 16 visits Duration of treatment (weeks) 12 Plan of Care Start Date 07/18/23 Plan of Care End Date 10/10/23 Next Visit Focus/Plan Next Note Type Treatment Note Next Visit Plan Next: Assess C. strength. Follow MD protocol given today : Cont: Pain control, full elbow , wrist/finger ROM (shoulder in neutral). Active Shldr shrugs/scap retract. Supported pendulum. AAROM flex-90, AB-90, ER <30deg's of L shdr. Immobilizer 6 wks at all times. 2-6 wks: 90 deg's AAROM, full pendulums, same as previously , AAROM sup w/wand, ER as yobani, IR as yobani (if no subscapularis repair, wand behind back), 1-2 finger isomx6 (fist in box). Stationary bike w/sling. Postural education, HEP: Neck ROM ex's and Zackery rhomboid strengthening. Modalities of MH/CP as needed for pain.
--- NOTE | 2023-08-08 16:08 | PT.OTN ---
Current Diagnoses Other specified joint disorders, right shoulder (08/08/23) Strain of muscle(s) and tendon(s) of the rotator cuff of right shoulder, subsequent encounter (08/08/23) Physical Therapy Treatment Note PT-OP-A Visit Information Start: 07/14/23 17:17 Freq: Status: Active Protocol: Document 08/08/23 08:21 LRN (Rec: 08/08/23 09:07 LRN [id number]) Out-Patient Physical Therapy Visit Information Visit Information Visit Type Discharge Summary Visit Start Time 08:21 Visit Stop Time 09:06 Visit Number 08/14 Evaluation Information Evaluation Date 07/18/23 Precautions Precautions Neck fusion with cage (C4, C5, C6), hernia x 3, back pain PT-OP-B Current Condition Start: 07/14/23 17:17 Freq: Status: Active Protocol: Document 07/18/23 08:20 LRN (Rec: 07/18/23 09:52 LRN [id number]) Current Condition History of Current Condition Onset Date 07/10/23 Current Complaints R shoulder pain and is to be in sling for 12 weeks. History of Current Condition Pt reports being 7 days post op R RC repair as an outpatient (day) surgery in [place], after suffering an injury while exercising ( butterfly ex), stating he did a wgt too high. States he is having trouble brushing his teeth. At home has been living with an ice pack (20' on, 40' off). He reports walking a lot, keeping his arm in the sling to be as still as possible, and is exercising his forearm by doing ROM and hand squeezes. Pt reports his spouse is a retired PT and can assist at home with exercises. Pt denies tenderness in the posterior neck, R UT/Supraspinatus, R Rhomboids, and R anterior pectoralis major/minor. He has discomfort with palpation around his anterior shoulder incision. Treatment Goals Patient/Caregiver Goals Pt reports MD instructed goals are: 0-8wks PROM for FROM, walking, and lifting max 1 cup of coffee; after 12 wks starting at gym strengthening (around September or October light wgt exercise). 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 PT-OP-C Subjective Start: 07/14/23 17:17 Freq: Status: Active Protocol: Document 08/08/23 08:21 LRN (Rec: 08/08/23 09:07 LRN [id number]) OP-PT Subjective Patient Comments Patient Comments States the shoulder brace was initially put together wrong, but is now right. States he will have surgery on back in 2 days. R shoulder pain is now under control, using pain meds when has to. PT-OP-J Posture/Palpation/Skin Start: 07/14/23 17:17 Freq: Status: Active Protocol: Document 07/18/23 08:20 LRN (Rec: 07/18/23 09:52 LRN [id number]) Posture Evaluation Position Sitting Head/C-Spine Posture Neutral Position Shoulder Posture (R) Forward Comments Posture Comments Level shoulders, R arm in sling. Palpation Assessment Location R infraspinatus Palpation Location Tender at muscle belly Palpation Findings Tenderness PT-OP-K Range of Motion Start: 07/14/23 17:17 Freq: Status: Active Protocol: Document 08/08/23 08:21 LRN (Rec: 08/08/23 09:07 LRN [id number]) Shoulder Goniometric Range of Motion Shoulder Right Passive Testing Position Supine Flexion 85 Abduction 84 Right Active Shoulder ROM WFL No Testing Position Sitting Flexion 38 Abduction 54 External Rotation at 0 degrees Abduction 25 Comments AAROM msmts are above. Standing for AB & Flex Left Active Testing Position Sitting Flexion 162 Horizontal Abduction 130 External Rotation at 0 degrees Abduction 82 Elbow/Forearm Range of Motion Elbow/Forearm Right Passive Elbow Flexion (degrees) 136 PT-OP-M Strength Start: 07/14/23 17:17 Freq: Status: Active Protocol: Document 08/08/23 08:21 LRN (Rec: 08/08/23 09:07 LRN [id number]) Cervical Spine Strength Cervical Spine Manual Muscle Testing Comments Strength is 5/5. PT-OP-Q Treatments Start: 07/14/23 17:17 Freq: Status: Active Protocol: Document 08/08/23 08:21 LRN (Rec: 08/08/23 09:07 LRN [id number]) Therapeutic Exercises Supine Exercises R shoulder AAROM Supine Exercise Name Flex & AB - max 90 deg's, ER < 28 deg's Side right Reps/Minutes 10' Comments PROM no greater than 90 flex, 90 AB, <28 ER. AA elbow curls Supine Exercise Name AA Elbow curls Side right Equipment Used Dowel Reps/Minutes 15x Comments Pt cued not to work into pain Sitting Exercises Shdr shrug w/retraction Sitting Exercise Name Shoulder circles Side bilateral Reps/Minutes 15x 2 R wrist AROM Sitting Exercise Name Wrist flex/ext/Circles Side right Reps/Minutes 15x each Comments ROM limited bilaterally R sup/Pron Sitting Exercise Name AA Supination/Pronation to tolerance Side right Reps/Minutes 15x Comments Cued to have forearm next to body R elbow AAROM Sitting Exercise Name AAROM for flex/ext Side right Reps/Minutes 15x Standing Exercises AAROM R shoulder Standing Exercise Name ER, Flex, AB Side right Reps/Minutes 8' Comments ROM taken Codman Standing Exercise Name Codman warm up, and between ex 's. Side right Reps/Minutes 3' x 1, 1' x 2 Self-Care/Home Management Treatment Education Patient Education Joint Protection,Safety Other Education Review of R shoulder sling donning. Discussed pt's surgical plans for his lumbar spine and his current plan of care of almost 4 wk post op status. Discussed pt's HEP and his protocol and current status of 27 days post op status. Encouraged and instructed pt to remain AAROM to R shoulder as noticed that he will use his shoulder and actively flex the elbow (without assist). PT-OP-T Assessment and Plan Start: 07/14/23 17:17 Freq: Status: Active Protocol: Document 08/08/23 08:21 LRN (Rec: 08/08/23 09:07 LRN [id number]) Physical Therapy Assessment Goals Three Impairment Decreased R shoulder strength Short Term Goal (STG) In 8 wks pt will be able to lifting a weight of a cup of coffee. STG Duration 8 wks-09/15/23 Alf Goal (LTG) 12-24 wks pt will be able to start gym strengthening ( around September or October light wgt exercise). LTG Duration 12 wks-10/10/23 Two Impairment Decreased R shoulder PROM & AROM Short Term Goal (STG) Full PROM of R shoulder in 8 wks. STG Duration 8 wks-09/15/23 Fill Technician Goal (LTG) Full AROM of R shoulder in 8- 12 weeks. LTG Duration 12 wks-10/10/23 One Impairment Pt lacks appropriate self care HEP Short Term Goal (STG) Pt will be educated in HEP of R shoulder PROM/AAROM ex's ( with spouse to assist) once protocol is received from referring physician. STG Duration 8 wks-09/15/23 Fill Technician Goal (LTG) Pt will be educated in self care HEP of R shoulder light strengthening ex's per MD protocol (once received). LTG Duration 12 wks-10/10/23 Assessment Summary Assessment 62 yo male who is 1 day short of being 4wks s/p R subscapularis repair of complete tear (in wk 2-6 of protocol). His R shoulder sling was initially set wrong, but is now of good fit after return to issuing office for refit. Pt currently reports very little pain with R shoulder AAROM, except when pushing too far in his stretching. AAROM/PROM is noteably limited with active assited flexion (good with PROM) and slightly limited with AB. Pt has been seen doing AROM and not AAROM of his R shoulder. Pt is having lumbar surgery in 2 days; therefore will need to be discharged from PT due to a change in his medical status prior to his next scheduled appointment. A new referral will be needed for him to return to complete his s/p R subscapularis repair rehab when he is medically stable from his planned lumbar surgery. The pt is aware of the requirement for referral on return and is agreeable in obtaining PT referral before return. The pt is aware of his R shoulder HEP per protocol and is planning on doing as much as he can with the assist of his spouse who is a retired PT. Pt is discharged today for PT. Physical Therapy Plan Frequency and Duration Frequency of Treatment 16 visits Discharge Physical Therapy Discharge Reasons Change in Medical Status Discharge Comments Pt is being discharged from therapy due to lumbar surgery scheduled for 08/10/23. Pt will need new R shoulder rehab referral to return due to change in medical status after lumbar surgery.
== END 2023-08-10 10:37 | disposition home or self-care (01) ==
LOC: PHYS 08:15
PROVIDERS: Family Provider Student in an Organized Health Care Education/Training Program; PCP Registered Nurse; Referring Provider Orthopaedic Surgery; Visit Provider Orthopaedic Surgery
DX: S46.011D Strain of muscle(s) and tendon(s) of the rotator cuff of right shoulder, subsequent encounter (principal); M25.811 Other specified joint disorders, right shoulder
CPT/HCPCS: 97110; 97162; 97535

== ENCOUNTER → 2023-08-31 08:33 | Outpatient (CLI) | payer OTHER, SELFPAY ==
--- NOTE | 2023-08-31 08:35 | DI.CT.S_ITS ---
PROCEDURE: CT LUMBAR SPINE WO CON INDICATIONS: S/P LUMBAR FUSION TECHNIQUE: Noncontrast 3 mm thick sections acquired from the T12 level to the sacrum. Sagittal and coronal reformats were constructed. For radiation dose reduction, the following was used: automated exposure control. COMPARISON: [facility], MR, MR LUMBAR SPINE WO CON, 03/13/2023, 15:43. FINDINGS: Image quality: Excellent. Bones: There is normal bony alignment. Postsurgical changes from L5-S1 posterior spinal fixation, laminectomy and discectomy. The hardware appears intact without surrounding fracture or lucency. No acute vertebral body compression fractures. Mild multilevel degenerative changes of the lumbar spine with osteophytosis and facet arthropathy. No suspicious lytic or blastic bony lesions. Bilateral L5 pars interarticularis defects.. Soft tissues: No retroperitoneal masses or hematomas. Visualized aorta is normal in caliber. Mild atherosclerotic vascular calcifications. Postsurgical scarring with posterior paraspinal soft tissues. IMPRESSION: Postsurgical changes at L5-S1. Hardware appears intact without evidence of complication. Redemonstration of degenerative changes of the lumbar spine. Dictated by: Isaiah Du M.D. on 08/31/2023 at 10:52 Approved by: Isaiah Du M.D. on 08/31/2023 at 10:56
== END ==
PROVIDERS: Family Provider Student in an Organized Health Care Education/Training Program; PCP Registered Nurse; Referring Provider Physician Assistant; Visit Provider Physician Assistant
DX: M47.817 Spondylosis without myelopathy or radiculopathy, lumbosacral region (principal); Z98.1 Arthrodesis status
CPT/HCPCS: 72131

== ENCOUNTER 2023-11-12 23:46 | Emergency (ER) | payer OTHER, SELFPAY ==
[2023-11-12 23:49] VITALS: PULSE 69; O2SAT 96
[2023-11-12 23:50] VITALS: BP 151/72; PULSE 66; O2SAT 95
[2023-11-12 23:52] VITALS: BP 151/72; PULSE 66; RESP 18; TEMP 36.6; O2SAT 95; BMI 25.9
[2023-11-13] VITALS (7 sets, daily range): BP systolic 110–167; BP diastolic 63–85; PULSE 57–87; RESP 18; TEMP 37; O2SAT 91–98
--- NOTE | 2023-11-13 00:58 | ED_ITS ---
HPI - Back Pain/Injury General Chief Complaint: Back Pain/Injury Stated Complaint: back pain Time Seen by Provider: 11/12/23 23:48 Source: patient History of Present Illness HPI Narrative: 62-year-old male presents by EMS from home for lower back pain. Patient un derwent spinal fusion approximately 2 weeks ago at [facility]. He states that he was recovering well at home when approximately 4 days ago he bent down on the ground and twisted sideways to look underneath the car. Since that time he has had progressive lower back pain uncontrolled with home oxycodone. Patient has had increasing difficulty ambulating due to pain and tonight he could not take i t anymore and called 911. Patient denies bowel or bladder incontinence, denies saddle anesthesia. Related Data Home Medications Medication Instructions Recorded Confirmed albuterol sulfate 90 mcg/actuation 2 puff inhalation QID 07/09/18 09/25/20 aerosol inhaler cholecalciferol (vitamin D3) 100 100 mcg PO DAILY 06/25/20 09/25/20 mcg (4,000 unit) capsule glucosamine HCl 500 mg tablet 500 mg PO DAILY 06/25/20 09/25/20 montelukast 4 mg oral granules in 4 mg PO DAILY 06/25/20 09/25/20 packet omega-3 fatty acids 1,000 mg 1,000 mg PO DAILY 06/25/20 09/25/20 capsule (Fish Oil Concentrate) trazodone 50 mg tablet 200 mg PO DAILY 06/25/20 09/25/20 turmeric 400 mg capsule 1,950 mg PO DAILY 06/25/20 09/25/20 fluticasone fur. 100 mcg-umeclid 1 inh inhalation BID 06/30/20 09/25/20 62.5 mcg-vilant 25 mcg inhalat.powder (Trelegy Ellipta) methocarbamol 750 mg tablet 750 mg PO DAILY 06/30/20 09/25/20 tamsulosin 0.4 mg capsule 0.4 mg PO DAILY 06/30/20 09/25/20 testosterone enanthate 200 mg/mL 200 mg IM Q2W 06/30/20 09/25/20 intramuscular oil Previous Rx's Medication Instructions Recorded acetaminophen 325 mg capsule 650 mg (2 x 325 mg) PO QID PRN 06/30/20 (Tylenol) pain #60 caps methylprednisolone 4 mg tablets in See Rx Instructions PO .COMPLEX 11/13/23 a dose pack (Medrol (Tre)) #21 ea Allergies Allergy/AdvReac Type Severity Reaction Status Date / Time No Known Drug Allergies Allergy Verified 09/25/20 13:48 Review of Systems Review of Systems Narrative: See HPI Patient History Medical History Asthma Surgical History S/P cervical spinal fusion H/O hernia repair Social History marital status: household members: spouse Smoking Status: Former smoker Tobacco: How many years used: 29 alcohol intake: current substance use type: does not use Smoking Status: Former smoker alcohol intake frequency: a few times a month Substance Use Type: does not use Exam Initial Vital Signs Initial Vital Signs: Vital Signs Pulse Rate 69 11/12/23 23:49 Pulse Oximetry 96 11/12/23 23:49 Const: Awake, alert, uncomfortable, in pain MSK: No midline tenderness Skin: Warm, Dry, intact, no rashes Neuro: AO x3, CN II-XII grossly intact, moves all extremities Course Orders Ordered: Discontinued Medications Dexamethasone (Dexamethasone 10 Mg/Ml Vial) 10 mg IV NOW ONE Stop: 11/13/23 00:58 Last Admin: 11/13/23 01:08 Dose: 10 mg Documented By: Diazepam (Diazepam 10 Mg/2 Ml Syringe) 2 mg IV NOW ONE Stop: 11/13/23 00:58 Last Admin: 11/13/23 01:08 Dose: 2 mg Documented By: Acetaminophen (Ofirmev) 1,000 mg in 100 mls @ 400 mls/hr IV NOW ONE Stop: 11/13/23 01:11 Last Infusion: 11/13/23 01:25 Dose: Infused Documented By: Admin: 11/13/23 01:09 Dose: 400 mls/hr Documented By: Sodium Chloride (Normal Saline 0.9%) 1,000 mls @ 1,000 mls/hr IV BOLUS ONE Stop: 11/13/23 01:56 Ketorolac Tromethamine (Ketorolac 30 Mg/Ml Vial) 15 mg IV NOW ONE Stop: 11/13/23 00:58 Last Admin: 11/13/23 01:08 Dose: 15 mg Documented By: Vital Signs Vital signs: Vital Signs - 8 hr 11/12/23 23:49 11/12/23 23:50 11/12/23 23:50 Temperature Pulse Rate 69 66 Respiratory Rate Blood Pressure 151/72 H Pulse Oximetry 96 95 Oxygen Delivery Method 11/12/23 23:52 11/13/23 00:00 11/13/23 00:00 Temperature 97.8 F Pulse Rate 66 67 Respiratory Rate 18 Blood Pressure 151/72 H 142/66 H Pulse Oximetry 95 91 Oxygen Delivery Method Room Air 11/13/23 00:30 11/13/23 00:30 11/13/23 01:00 Temperature Pulse Rate 65 Respiratory Rate Blood Pressure 110/68 122/73 Pulse Oximetry 96 Oxygen Delivery Method 11/13/23 01:00 11/13/23 01:30 11/13/23 01:30 Temperature Pulse Rate 59 L 63 Respiratory Rate Blood Pressure 145/67 H Pulse Oximetry 94 97 Oxygen Delivery Method 11/13/23 02:00 11/13/23 02:00 11/13/23 02:30 Temperature Pulse Rate 57 L Respiratory Rate Blood Pressure 130/63 160/75 H Pulse Oximetry 95 Oxygen Delivery Method 11/13/23 02:30 Temperature Pulse Rate 64 Respiratory Rate Blood Pressure Pulse Oximetry 95 Oxygen Delivery Method MDM - Back Pain/Injury Differential Diagnosis Differential diagnosis: Likely lumbar radiculopathy, sciatica and strain of lumbar region MDM Narrative Medical decision making narrative: Lower back pain after bending and twisting shortly after spinal fusion. Neurologically intact, no signs or symptoms of cauda equina. With lack of history of trauma as well as clear mechanism of inciting pain no indication for imaging at this time. Patient was given several medications for pain in the emergency department with significant improvement in symptoms. Patient stated that he would call his neurosurgical team for follow up appointment. Patient already has narcotics and muscle relaxers at home, Medrol Dosepak sent to pharmacy of choice. Discharge Plan Departure Patient Disposition: Home Clinical Impression: Lumbar back pain Instructions: DI for Low Back Pain Activity Restrictions/Additional Instructions: Follow up with your lumbar surgical team. Take the steroids as prescribed along with your oxycodone, tizanidine, Tylenol, and ibuprofen. Gentle exercise we will also help to improve your back pain. Prescriptions: New methylprednisolone [Medrol (Tre)] 4 mg tablets,dose pack See Rx Instructions .ROUTE .COMPLEX Qty: 21 0RF Rx Instructions: orally per package directions No Action omega-3 fatty acids [Fish Oil Concentrate] 1,000 mg capsule 1,000 mg PO DAILY cholecalciferol (vitamin D3) 100 mcg (4,000 unit) capsule 100 mcg PO DAILY turmeric 400 mg capsule 1,950 mg PO DAILY glucosamine HCl 500 mg tablet 500 mg PO DAILY Rx Instructions: administer with a meal montelukast 4 mg granules in packet 4 mg PO DAILY trazodone 50 mg tablet 200 mg PO DAILY albuterol sulfate 90 mcg/actuation HFA aerosol inhaler 2 puff Inhalation QID Patient Comments: INHALE 2 PUFFS PO QID methocarbamol 750 mg tablet 750 mg PO DAILY tamsulosin 0.4 mg capsule 0.4 mg PO DAILY testosterone enanthate 200 mg/mL oil 200 mg IM Q2W Trelegy Ellipta 100-62.5-25 mcg blister with device 1 inh INHALATION BID acetaminophen [Tylenol] 325 mg capsule 650 mg PO QID PRN (Reason: pain) Qty: 60 0RF Referrals: Elinor Clark ARNP [Primary Care Provider] - Stand Alone Forms: Patient Portal/API
[2023-11-13] MEDS: diazePAM 10 MG/2 ML SYRINGE 2 MG IV (01:08)
[2023-11-13] MEDS: KETOROLAC 30 MG/ML VIAL 15 MG IV (01:08)
[2023-11-13] MEDS: DEXAMETHASONE 10 MG/ML VIAL IV (01:08)
[2023-11-13] MEDS: ACETAMINOPHEN IV 1,000 MG/100 ML VIAL 400 MG IV (01:09)
== END 2023-11-13 03:54 | disposition home or self-care (01) ==
PROVIDERS: Emergency Provider Emergency Medicine; Family Provider Student in an Organized Health Care Education/Training Program; PCP Registered Nurse
DX: M54.50 Low back pain, unspecified (principal); Z98.1 Arthrodesis status
CPT/HCPCS: 36415; 96365; 96375; 99283; 99284; J0136; J1100; J1885; J3360

== ENCOUNTER 2023-11-18 22:18 | Emergency (ER) | payer OTHER, SELFPAY ==
[2023-11-18 22:22] VITALS: BMI 26.9
[2023-11-18 22:24] VITALS: BP 193/86; PULSE 62; O2SAT 97
[2023-11-18 22:28] VITALS: BP 193/86; PULSE 55; RESP 19; TEMP 36.9; O2SAT 96
[2023-11-18 22:30] VITALS: BP 170/74; PULSE 61; O2SAT 97
[2023-11-18] MEDS: KETOROLAC 30 MG/ML VIAL 15 MG IV (23:18)
--- NOTE | 2023-11-18 23:21 | PC.NURSE ---
Pt is in a lot of pain. And wants films/imaging for back. Dr Sutton notified.
--- NOTE | 2023-11-18 23:38 | DI.CT.S_ITS ---
PROCEDURE: CT LUMBAR SPINE WO CON INDICATIONS: low back pain, recent surgery TECHNIQUE: Noncontrast 3 mm thick sections acquired from the T12 level to the sacrum. Sagittal and coronal reformats were constructed. For radiation dose reduction, the following was used: automated exposure control. COMPARISON: [facility], CT, CT LUMBAR SPINE WO CON, 08/31/2023, 8:42. FINDINGS: Image quality: Excellent. Bones: There is normal bony alignment. No acute vertebral body compression fractures. No suspicious lytic or blastic bony lesions. No pars defects. Prior CT scanning from 08/31/23 showed a 2 level fusion at L5-S1. The current imaging shows a 3 level fusion from L4 through S1, with interbody disc fixation devices at each of the 2 intervening levels. No evidence of device loosening or disruption, no inflammatory change identified along the lumbosacral spine visualized. Soft tissues: No retroperitoneal masses or hematomas. Visualized aorta is normal in caliber. IMPRESSION: Lumbosacral spine fusion revision as discussed, without operative complication seen. A definite source of new pain is not found. Normal alignment established. Dictated by: Jesus Jones M.D. on 11/19/2023 at 0:33 Approved by: Jesus Jones M.D. on 11/19/2023 at 0:35
[2023-11-18] MEDS: diazePAM 10 MG/2 ML SYRINGE 5 MG IV (23:46)
[2023-11-19] VITALS (14 sets, daily range): BP systolic 132–183; BP diastolic 66–110; PULSE 50–87; RESP 18; TEMP 36.8–36.9; O2SAT 93–98
--- NOTE | 2023-11-19 01:46 | ED_ITS ---
HPI - Back Pain/Injury General Chief Complaint: Back Pain/Injury Stated Complaint: back pain Time Seen by Provider: 11/18/23 22:45 History of Present Illness HPI Narrative: 62-year-old male with history of lumbar back surgery recent weeks, was leaning down 2 weeks ago trying to pick something up off the floor, felt back pain that has been persisting since that time. Awaiting back surgery follow up appointment with pain clinic. He is taking OxyContin for chronic pain. He denies numbness and weakness to his legs. No incontinence of urine or stool. Related Data Home Medications Medication Instructions Recorded Confirmed albuterol sulfate 90 mcg/actuation 2 puff inhalation QID 07/09/18 09/25/20 aerosol inhaler cholecalciferol (vitamin D3) 100 100 mcg PO DAILY 06/25/20 09/25/20 mcg (4,000 unit) capsule glucosamine HCl 500 mg tablet 500 mg PO DAILY 06/25/20 09/25/20 montelukast 4 mg oral granules in 4 mg PO DAILY 06/25/20 09/25/20 packet omega-3 fatty acids 1,000 mg 1,000 mg PO DAILY 06/25/20 09/25/20 capsule (Fish Oil Concentrate) trazodone 50 mg tablet 200 mg PO DAILY 06/25/20 09/25/20 turmeric 400 mg capsule 1,950 mg PO DAILY 06/25/20 09/25/20 fluticasone fur. 100 mcg-umeclid 1 inh inhalation BID 06/30/20 09/25/20 62.5 mcg-vilant 25 mcg inhalat.powder (Trelegy Ellipta) methocarbamol 750 mg tablet 750 mg PO DAILY 06/30/20 09/25/20 tamsulosin 0.4 mg capsule 0.4 mg PO DAILY 06/30/20 09/25/20 testosterone enanthate 200 mg/mL 200 mg IM Q2W 06/30/20 09/25/20 intramuscular oil Previous Rx's Medication Instructions Recorded acetaminophen 325 mg capsule 650 mg (2 x 325 mg) PO QID PRN 06/30/20 (Tylenol) pain #60 caps methylprednisolone 4 mg tablets in See Rx Instructions PO .COMPLEX 11/13/23 a dose pack (Medrol (Tre)) #21 ea lactulose 20 gram/30 mL oral 20 g (30 mL) PO BID #3,000 mL 11/19/23 solution Allergies Allergy/AdvReac Type Severity Reaction Status Date / Time No Known Drug Allergies Allergy Verified 09/25/20 13:48 Review of Systems Review of Systems Narrative: per HPI Patient History Medical History Asthma Surgical History S/P cervical spinal fusion H/O hernia repair Social History marital status: household members: spouse Smoking Status: Former smoker Tobacco: How many years used: 29 alcohol intake: current substance use type: does not use Smoking Status: Former smoker alcohol intake frequency: a few times a month Substance Use Type: does not use Exam Narrative Exam Narrative: GENERAL: Well-developed patient, in mild distress. HEAD: Atraumatic. Normocephalic. EYES: Pupils equal round and reactive. Extraocular motions intact. No scleral icterus. No injection or drainage. ENT: Nose without bleeding, purulent drainage. Throat without erythema, tonsillar hypertrophy or exudate. Airway patent. NECK: Trachea midline. Non tender CARDIOVASCULAR: Regular rate and rhythm without murmurs, gallops, or rubs. RESPIRATORY: Clear to auscultation. Breath sounds equal bilaterally. No wheezes, rales, or rhonchi. GASTROINTESTINAL: Abdomen soft, non-tender, nondistended. EXTREMITIES: No edema or joint tenderness. BACK: Nontender without deformity or crepitance. No flank tenderness. NEURO: AOx3. SKIN: No rash or erythema of visible areas Initial Vital Signs Initial Vital Signs: Vital Signs Pulse Rate 62 11/18/23 22:24 Blood Pressure 193/86 H 11/18/23 22:24 Pulse Oximetry 97 11/18/23 22:24 Course Orders Ordered: ED Orders 11/18/23 23:38 CT lumbar spine wo con Stat 11/19/23 02:20 CBC Auto Diff [Complete Blood Count AUTO DIFF] Stat CMP [Comprehensive Metabolic Panel] Stat 11/19/23 03:07 CT abdomen pelvis w con Stat 11/19/23 03:50 Urinalysis and Microscopic Stat Discontinued Medications Diazepam (Diazepam 10 Mg/2 Ml Syringe) 5 mg IV NOW ONE Stop: 11/18/23 23:40 Last Admin: 11/18/23 23:46 Dose: 5 mg Documented By: Hydromorphone HCl (Hydromorphone 0.5 Mg Inj) 0.5 mg IV NOW ONE Stop: 11/19/23 02:41 Last Admin: 11/19/23 03:03 Dose: 0.5 mg Documented By: Sodium Chloride (Normal Saline 0.9%) 1,000 mls @ 1,000 mls/hr IV BOLUS ONE Stop: 11/19/23 04:06 Last Infusion: 11/19/23 05:07 Dose: Infused Documented By: Admin: 11/19/23 03:21 Dose: 1,000 mls/hr Documented By: Ketorolac Tromethamine (Ketorolac 30 Mg/Ml Vial) 30 mg IM NOW ONE Stop: 11/18/23 22:46 Last Admin: 11/18/23 23:54 Dose: Not Given Documented By: Ketorolac Tromethamine (Ketorolac 30 Mg/Ml Vial) 15 mg IV NOW ONE Stop: 11/18/23 23:18 Last Admin: 11/18/23 23:18 Dose: 15 mg Documented By: Sodium Biphosphate/Sodium Phosphate (Fleets Enema) 1 each VA NOW ONE Stop: 11/19/23 05:10 Last Admin: 11/19/23 05:15 Dose: 1 each Documented By: Vital Signs Vital signs: Vital Signs - 8 hr 11/18/23 22:24 11/18/23 22:24 11/18/23 22:28 Temperature 98.4 F Pulse Rate 62 55 L Respiratory Rate 19 Blood Pressure 193/86 H 193/86 H Pulse Oximetry 97 96 Oxygen Delivery Method Room Air 11/18/23 22:30 11/18/23 22:30 11/19/23 01:21 Temperature 98.2 F Pulse Rate 61 66 Respiratory Rate 18 Blood Pressure 170/74 H 135/75 Pulse Oximetry 97 98 Oxygen Delivery Method Room Air 11/19/23 01:30 11/19/23 01:48 11/19/23 01:48 Temperature Pulse Rate 50 L 50 L Respiratory Rate Blood Pressure 167/76 H Pulse Oximetry 97 96 Oxygen Delivery Method 11/19/23 02:00 11/19/23 02:01 11/19/23 02:01 Temperature Pulse Rate 57 L 56 L Respiratory Rate Blood Pressure 183/86 H Pulse Oximetry 95 95 Oxygen Delivery Method 11/19/23 02:02 11/19/23 02:02 11/19/23 02:30 Temperature Pulse Rate 54 L Respiratory Rate Blood Pressure 175/79 H 180/110 H Pulse Oximetry 95 Oxygen Delivery Method 11/19/23 02:30 11/19/23 03:00 11/19/23 03:51 Temperature Pulse Rate 53 L 62 82 Respiratory Rate Blood Pressure Pulse Oximetry 95 95 95 Oxygen Delivery Method 11/19/23 03:53 11/19/23 03:53 11/19/23 04:00 Temperature Pulse Rate 81 Respiratory Rate Blood Pressure 159/70 H 145/66 H Pulse Oximetry 97 Oxygen Delivery Method 11/19/23 04:00 11/19/23 04:30 11/19/23 04:30 Temperature Pulse Rate 77 72 Respiratory Rate Blood Pressure 148/67 H Pulse Oximetry 94 93 Oxygen Delivery Method 11/19/23 05:00 11/19/23 05:00 11/19/23 05:25 Temperature 98.4 F Pulse Rate 63 87 Respiratory Rate 18 18 Blood Pressure 142/66 H 132/78 Pulse Oximetry 94 97 Oxygen Delivery Method Room Air MDM - Back Pain/Injury Lab Data Attestation: I reviewed the patient's lab results. 11/19/23 02:20 11/19/23 02:20 Labs: Lab Results 11/19/23 11/19/23 Range/Units 02:20 03:50 WBC 11.3 H (4.5-11.0) X10^3/uL RBC 4.55 (4.5-5.9) X10^6/uL Hgb 12.7 L (13.5-17.5) g/dL Hct 38.9 L (41-53) % MCV 85.4 (80-100) fL MCH 27.9 (26-34) PG MCHC 32.7 (30-36) % RDW 14.2 (11.6-14.8) % Plt Count 283 (150-400) X10^3/uL Neut % (Auto) 70.1 (50-75) % Lymph % (Auto) 19.5 L (25-40) % [place] % (Auto) 8.4 (3-14) % Eos % (Auto) 0.8 L (2-4) % Baso % (Auto) 1.2 (0-2) % Neut # (Auto) 7900 H (1322-2375) /uL Lymph # (Auto) 2200 (3180-4034) /uL [place] # (Auto) 1000 H (0-900) /uL Eos # (Auto) 100 (0-450) /uL Baso # (Auto) 100 (0-100) /uL Sodium 137 (137-145) mmol/L Potassium 4.3 (3.4-5.1) mmol/L Chloride 107 (98-107) mmol/L Carbon Dioxide 25 (22-32) mmol/L BUN 19 (9-20) mg/dL Creatinine 0.93 (0.66-1.25) mg/dL Estimated GFR > 60 (>60) mL/min BUN/Creatinine Ratio 20.4 (6-22) Glucose 109 (80-110) mg/dL Calcium 8.6 (8.4-10.2) mg/dL Total Bilirubin 0.4 (0.2-1.3) mg/dL AST 20 (17-59) IU/L ALT 15 (<50) IU/L Alkaline Phosphatase 104 (38-126) U/L Total Protein 6.5 (6.3-8.2) g/dL Albumin 3.8 (3.5-5.0) g/dL Globulin 2.7 (1.7-4.1) g/dL Albumin/Globulin Ratio 1.4 (1.0-2.8) Urine Color Yellow Urine Appearance Slightly cloudy Urine pH 7.0 (4.5-8.0) Ur Specific [place] 1.015 (1.000-1.035) Urine Protein Negative (Negative) Urine Glucose (UA) Negative (Negative) g/dL Urine Ketones Negative (NEGATIVE) Urine Occult Blood Negative (Negative) Urine Nitrate Negative (Negative) Urine Bilirubin Negative (NEGATIVE) Urine Urobilinogen 1.0 (0.2) E.U./dL Ur Leukocyte Esterase Trace H (NEGATIVE) Urine RBC 0-1/hpf (0-5/HPF) Urine WBC 0-1/hpf (0-5/HPF) Ur Squamous Epith Cells 0-1 /hpf (0-5/HPF) Amorphous Sediment 3+ Urine Bacteria None seen (None) Urine Mucus 2+ H (Negative) Ur Culture Indicated? Cult not indicated Vol Urine Centrifuged 10ml (spun) Imaging Data CT Lumbar Spine: Radiologist's Impression: [address] [address] [address] Scan Report Signed Patient: Hira Prince Jr MR#: [id number] : 1960 Acct:[id number] Age/Sex: 62 / M Date of Service: 11/18/23 Loc: ED Accession Number: [id number] Procedure: CT lumbar spine wo con Ordering Provider: Zenon Sutton MD PROCEDURE: CT LUMBAR SPINE WO CON INDICATIONS: low back pain, recent surgery TECHNIQUE: Noncontrast 3 mm thick sections acquired from the T12 level to the sacrum. Sagittal and coronal reformats were constructed. For radiation dose reduction, the following was used: automated exposure control. COMPARISON: [facility], CT, CT LUMBAR SPINE WO CON, 08/31/2023, 8:42. FINDINGS: Image quality: Excellent. Bones: There is normal bony alignment. No acute vertebral body compression fractures. No suspicious lytic or blastic bony lesions. No pars defects. Prior CT scanning from 08/31/23 showed a 2 level fusion at L5-S1. The current imaging shows a 3 level fusion from L4 through S1, with interbody disc fixation devices at each of the 2 intervening levels. No evidence of device loosening or disruption, no inflammatory change identified along the lumbosacral spine visualized. Soft tissues: No retroperitoneal masses or hematomas. Visualized aorta is normal in caliber. IMPRESSION: Lumbosacral spine fusion revision as discussed, without operative complication seen. A definite source of new pain is not found. Normal alignment established. Dictated by: Jesus Jones M.D. on 11/19/2023 at 0:33 Approved by: Jesus Jones M.D. on 11/19/2023 at 0:35 MDM Narrative Medical decision making narrative: 62-year-old male with recent lumbar spine fusion surgery, increasing back pain, no re-injury recalled, no numbness or weakness. Afebrile, sirs screen negative. Surgical site appears normal. Patient writhing in discomfort. IV Toradol, IV Valium, patient still uncomfortable appearing. CT lumbar spine imaging requested. CT lumbar spine showed postoperative changes, no acute changes, see radiologist's report imported above. Patient with lower abdominal discomfort central suprapubic on repeat exam, bladder scan requested. Labs sent, consider CT abdomen and pelvis and referred pain for back. Patient agreeable to this plan CT abdomen pelvis with IV contrast. Impressions: ?Fecal retention. See radiology report. Trial of fleets enema, ordered for here, dispensed, but he will take this at home. Home with family. Follow up with pain specialist as planned. Critical Care Time Critical Care Time Critical Care Time: Yes Total Critical Care Time: 31 Attestation: The high probability of a clinically significant, sudden or life threatening deterioration of the [genitourinary, abdominopelvic] system(s) required my full and direct attention, intervention and personal management. The aggregate critical care time was [31] minutes. This time is in addition to time spent performing reported procedures but includes the following: [x] Data Review and interpretation [x] Patient assessment and monitoring of vital signs [x] Documentation [x] Medication orders and management Discharge Plan Departure Patient Disposition: Home Clinical Impression: Low back pain, History of lumbar surgery, Constipation Activity Restrictions/Additional Instructions: Recent lumbar surgery, awaiting follow up pain center visit. Chronic opiate use for pain control. Lower abdominal discomfort as well as back pain. CT abdomen and pelvis showed no acute changes, but did show postoperative changes that looked unremarkable. CT abdomen and pelvis additional imaging was performed to look for possible abdominopelvic referred pain reason for back pain. No acute changes, however there was significant stool burden, which can cause discomfort, in his very common in context of opiate use. Trial of fleets enema. Consider course of lactulose to induce looser stools and resolved constipation, prescription sent to your pharmacy. Recheck with your spine surgeon as planned. Return to this/nearest emergency department for any change worsening symptoms or any concerns for Prescriptions: New lactulose 20 gram/30 mL solution 20 g PO BID Qty: 3000 0RF No Action omega-3 fatty acids [Fish Oil Concentrate] 1,000 mg capsule 1,000 mg PO DAILY cholecalciferol (vitamin D3) 100 mcg (4,000 unit) capsule 100 mcg PO DAILY turmeric 400 mg capsule 1,950 mg PO DAILY glucosamine HCl 500 mg tablet 500 mg PO DAILY Rx Instructions: administer with a meal montelukast 4 mg granules in packet 4 mg PO DAILY trazodone 50 mg tablet 200 mg PO DAILY albuterol sulfate 90 mcg/actuation HFA aerosol inhaler 2 puff Inhalation QID Patient Comments: INHALE 2 PUFFS PO QID methocarbamol 750 mg tablet 750 mg PO DAILY tamsulosin 0.4 mg capsule 0.4 mg PO DAILY testosterone enanthate 200 mg/mL oil 200 mg IM Q2W Trelegy Ellipta 100-62.5-25 mcg blister with device 1 inh INHALATION BID acetaminophen [Tylenol] 325 mg capsule 650 mg PO QID PRN (Reason: pain) Qty: 60 0RF methylprednisolone [Medrol (Tre)] 4 mg tablets,dose pack See Rx Instructions .ROUTE .COMPLEX Qty: 21 0RF Rx Instructions: orally per package directions Referrals: Elinor Clark ARNP [Primary Care Provider] - Stand Alone Forms: Patient Portal/API
[2023-11-19 02:30] LABS: Add Manual Diff / Slide Review NO; Basophils Absolute Auto 100 /uL (0-100); Basophils Percent Auto 1.2 % (0-2); Eosinophils Absolute Auto 100 /uL (0-450); Eosinophils Percent Auto 0.8 % (2-4); Hematocrit 38.9 % (41-53); Hemoglobin 12.7 g/dL (13.5-17.5); Lymphocytes Absolute Auto 2200 /uL (1100-4500); Lymphocytes Percent Auto 19.5 % (25-40); Mean Corpuscular HGB Conc 32.7 % (30-36); Mean Corpuscular Hemoglobin 27.9 PG (26-34); Mean Corpuscular Volume 85.4 fL (80-100); Monocytes Absolute Auto 1000 /uL (0-900); Monocytes Percent Auto 8.4 % (3-14); Neutrophils Absolute Auto 7900 /uL (1500-7000); Neutrophils Percent Auto 70.1 % (50-75); Platelet Count 283 X10^3/uL (150-400); Red Blood Cell Count 4.55 X10^6/uL (4.5-5.9); Red Cell Distribution Width 14.2 % (11.6-14.8); White Blood Cell Count 11.3 X10^3/uL (4.5-11.0)
[2023-11-19 02:43] LABS: Alanine Aminotransferase 15 IU/L (<50); Albumin 3.8 g/dL (3.5-5.0); Albumin Globulin Ratio 1.4 (1.0-2.8); Alkaline Phosphatase 104 U/L (38-126); Aspartate Aminotransferase 20 IU/L (17-59); BUN Creatinine Ratio 20.4 (6-22); Bilirubin Total 0.4 mg/dL (0.2-1.3); Blood Urea Nitrogen 19 mg/dL (9-20); Calcium 8.6 mg/dL (8.4-10.2); Carbon Dioxide 25 mmol/L (22-32); Chloride 107 mmol/L (98-107); Estimated Glomerular Filt Rate > 60 mL/min (>60); Globulin 2.7 g/dL (1.7-4.1); Glucose 109 mg/dL (80-110); HEMOLYSIS < 15 (0-50); Potassium 4.3 mmol/L (3.4-5.1); Sodium 137 mmol/L (137-145); Total Protein 6.5 g/dL (6.3-8.2)
[2023-11-19] MEDS: HYDROMORPHONE 0.5 MG INJ IV (03:03)
--- NOTE | 2023-11-19 03:07 | DI.CT.S_ITS ---
PROCEDURE: CT ABDOMEN PELVIS W CON INDICATIONS: abd back pain TECHNIQUE: After the administration of intravenous contrast, axial sections acquired from the lung bases to the pubic symphysis. Coronal and sagittal reformats were performed. For radiation dose reduction, the following was used: automated exposure control, adjustment of mA and/or kV according to patient size. COMPARISON: None. FINDINGS: Image quality: Streak metal artifact from posterior lumbar spinal fusion hardware limits evaluation of surrounding soft tissues.. Lower Chest: No significant findings. ABDOMEN: Liver: No solid mass. Gallbladder: Contracted. No radiopaque gallstones or wall thickening. Biliary ducts: No biliary dilation. Pancreas: No ductal dilation. Spleen: Size is within normal limits. Adrenal Glands: No adrenal nodules. Kidneys and Ureters: No hydronephrosis. No solid mass. No complex renal cystic lesion which requires follow up. Stomach and Bowel: Normal colonic caliber, without significant wall thickening. Stool is seen throughout the colon. Peritoneum: No abnormal intraperitoneal fluid. No free air. Ventral Wall: No significant ventral hernia. Abdominal Nodes: No retroperitoneal or mesenteric adenopathy by size criteria. Vessels: Aorta and inferior vena cava are normal in size. Aorto bi iliac atherosclerotic calcifications. PELVIS: Pelvic Organs: Prostatomegaly. Radiation seeds within the prostate. Bladder: No bladder wall thickening, accounting for underdistention. Pelvic Nodes: No enlarged lymph nodes. Miscellaneous: Small right fat containing inguinal hernia. Bones: No aggressive osseous abnormality. Status post L4-S1 posterior spinal fusion with L5-S1 intervertebral disc spacer. Degenerative changes without acute vertebral body compression fracture. IMPRESSION: Fecal retention is seen throughout the colon which may represent constipation. No other acute process in the abdomen or pelvis to explain patient's symptoms. Findings are concordant with preliminary interpretation provided by [facility]. Approved by: Inés Jon M.D.,Ph.D. on 11/19/2023 at 7:59
[2023-11-19] MEDS: SODIUM CHLORIDE 0.9% 1,000 ML 1000 ML IV (03:21)
[2023-11-19 03:55] LABS: Bilirubin Urine UA NEGATIVE (NEGATIVE); Color Urine UA YELLOW; Glucose Urine UA NEGATIVE (Negative); Ketones Urine UA NEGATIVE (NEGATIVE); Leukocyte Esterase Urine UA TRACE (NEGATIVE); Nitrite Urine UA NEGATIVE (Negative); Occult Blood Urine UA NEGATIVE (Negative); Protein Urine UA NEGATIVE (Negative); Specific Gravity Urine UA 1.015 (1.000-1.035)
[2023-11-19 04:00] LABS: Appearance Urine UA Slightly Cloudy
[2023-11-19 04:01] LABS: Bacteria Urine None Seen; RBC Urine 0-1/HPF (0-5/HPF); Squamous Epithelial Cell Urine 0-1 /HPF (0-5/HPF); Urine Volume 10mL (spun); WBC Urine 0-1/HPF (0-5/HPF)
[2023-11-19 04:02] LABS: Amorphous Sediment Urine 3+; Culture Indicated Urine Cult Not Indicated; Mucus Urine 2+ (Negative)
[2023-11-19] MEDS: FLEETS ENEMA 1 EACH PR (05:15)
== END 2023-11-19 05:27 | disposition home or self-care (01) ==
PROVIDERS: Emergency Provider Emergency Medicine; Family Provider Student in an Organized Health Care Education/Training Program; PCP Registered Nurse
DX: M54.50 Low back pain, unspecified (principal); R10.9 Unspecified abdominal pain; K59.00 Constipation, unspecified; R79.89 Other specified abnormal findings of blood chemistry; Z98.890 Other specified postprocedural states
CPT/HCPCS: 72131; 74177; 80053; 81001; 85025; 96361; 96374; 96375; 99284; J1170; J1885; J3360; Q9967

== ENCOUNTER 2023-12-13 18:08 | Emergency (ER) | payer OTHER, SELFPAY ==
[2023-12-13 18:25] VITALS: BP 105/57; PULSE 84; RESP 14; TEMP 37.6; O2SAT 95; BMI 27.1
[2023-12-13] MEDS: VANCOMYCIN 1,250 MG/250 ML PIGGYBACK 250 MG IV (18:38)
--- NOTE | 2023-12-13 19:52 | ED.RECABL ---
HPI - Recheck/Abnormal Lab/Rx General Chief Complaint: Recheck/Abnormal Lab/Rx Stated Complaint: needs IV ABX Time Seen by Provider: 12/13/23 18:24 Source: patient, RN notes reviewed and old records reviewed Mode of arrival: Ambulatory Limitations: no limitations History of Present Illness HPI narrative: 62-year-old male with history of osteomyelitis was recently at [facility] was just recently discharged had contact with infectious disease who wanted patient is started on IV vancomycin. There was a little bit of communication issue and patient was not set up prior to discharge. He does have a PICC line in place. He has orders that were shared with us and related from [facility] to our facility. Patient's physician is setting up outpatient infusions for IV antibiotics but presents this evening for his dose and will likely represent in the morning for his 2nd dose. Patient states he has been doing well no fevers no increase in pain states incision seems to be doing well. No little bit of discomfort on the bottom of his foot but no other complaints. No known drug allergies. He states he is on oral metronidazole as well under their direction and states he is taking all of his other medications as prescribed on his discharge paperwork. Related Data Home Medications Medication Instructions Recorded Confirmed albuterol sulfate 90 mcg/actuation 2 puff inhalation QID 07/09/18 09/25/20 aerosol inhaler cholecalciferol (vitamin D3) 100 100 mcg PO DAILY 06/25/20 09/25/20 mcg (4,000 unit) capsule glucosamine HCl 500 mg tablet 500 mg PO DAILY 06/25/20 09/25/20 montelukast 4 mg oral granules in 4 mg PO DAILY 06/25/20 09/25/20 packet omega-3 fatty acids 1,000 mg 1,000 mg PO DAILY 06/25/20 09/25/20 capsule (Fish Oil Concentrate) trazodone 50 mg tablet 200 mg PO DAILY 06/25/20 09/25/20 turmeric 400 mg capsule 1,950 mg PO DAILY 06/25/20 09/25/20 fluticasone fur. 100 mcg-umeclid 1 inh inhalation BID 06/30/20 09/25/20 62.5 mcg-vilant 25 mcg inhalat.powder (Trelegy Ellipta) methocarbamol 750 mg tablet 750 mg PO DAILY 06/30/20 09/25/20 tamsulosin 0.4 mg capsule 0.4 mg PO DAILY 06/30/20 09/25/20 testosterone enanthate 200 mg/mL 200 mg IM Q2W 06/30/20 09/25/20 intramuscular oil Previous Rx's Medication Instructions Recorded acetaminophen 325 mg capsule 650 mg (2 x 325 mg) PO QID PRN 06/30/20 (Tylenol) pain #60 caps methylprednisolone 4 mg tablets in See Rx Instructions PO .COMPLEX 11/13/23 a dose pack (Medrol (Tre)) #21 ea lactulose 20 gram/30 mL oral 20 g (30 mL) PO BID #3,000 mL 11/19/23 solution Allergies Allergy/AdvReac Type Severity Reaction Status Date / Time No Known Drug Allergies Allergy Verified 09/25/20 13:48 Review of Systems Review of Systems ROS Unobtainable: All systems reviewed & are unremarkable except as noted in HPI and below Patient History Medical History Asthma Surgical History S/P cervical spinal fusion H/O hernia repair Social History marital status: household members: spouse Smoking Status: Former smoker Tobacco: How many years used: 29 alcohol intake: current substance use type: does not use Smoking Status: Former smoker alcohol intake frequency: holidays/special occasions only Substance Use Type: does not use Exam Narrative Exam Narrative: GENERAL: Alert and oriented x three, male in mild distress. HEENT: Head normocephalic, atraumatic, EOMI, pupils reactive, face symmetric, moist mucous membranes NECK: Supple, full range of motion CARDIOVASCULAR: Regular rate and rhythm without murmurs, rubs or gallops. RESPIRATORY: Breath sounds equal bilaterally, no wheezes rales or rhonchi. ABDOMEN: Soft, nontender. Normoactive bowel sounds all 4 quadrants. No guarding or rebound, rigidity, no mass : No CVA tenderness BACK: No cervical, thoracic or lumbar vertebral point tenderness. Patient has been line incision over the lower lumbar spine sutures are in place that is clean dry and intact without any erythema or signs of infection. Patient has good range of motion. Patient uses a walker to ambulate but is able to ambulate without issue to and from the bathroom. EXTREMITIES: Normal range of motion, no clubbing or edema. Neurovascularly intact NEUROLOGICAL: Cranial nerves II through XII grossly intact. Moving all extremities SKIN: Warm, dry, no petechiae, no rashes or lesions otherwise noted. Initial Vital Signs Initial Vital Signs: Vital Signs Temperature 99.7 F H 12/13/23 18:25 Pulse Rate 84 12/13/23 18:25 Respiratory Rate 14 12/13/23 18:25 Blood Pressure 105/57 L 12/13/23 18:25 Pulse Oximetry 95 12/13/23 18:25 Oxygen Delivery Method Room Air 12/13/23 18:25 Course Orders Ordered: Discontinued Medications Vancomycin HCl (Vancomycin) 1,250 mg in 250 mls @ 250 mls/hr IV NOW ONE Stop: 12/13/23 19:11 Last Admin: 12/13/23 18:38 Dose: 250 mls/hr Documented By: CATHERINE Vital Signs Vital signs: Vital Signs - 8 hr 12/13/23 20:18 Temperature 98.4 F Pulse Rate 85 Respiratory Rate 19 Blood Pressure 139/62 Pulse Oximetry 98 Oxygen Delivery Method Room Air MDM - Recheck/Abnormal Lab/Rx MDM Narrative Medical decision making narrative: 62-year-old male presents for IV antibiotics orders were relayed from [facility] and primary care they are setting up working the infusions as an outpatient. Patient is well-appearing his incision looks good he has not had any complaints or other changes. We will likely represent tomorrow morning for his next dose with primary care already working door to have next dose in place as outpatient. Nursing and upstairs nursing consultant verified order for dosing for vancomycin which should be 1250 mg. Discharge Plan Departure Patient Disposition: Home Clinical Impression: Osteomyelitis Activity Restrictions/Additional Instructions: I hope you continue to feel improved. Please return for fevers, any signs of infection at your incision site, new back pain, new pain radiating down your legs numbness tingling or weakness, difficulty with ambulation or other new or concerning changes. Prescriptions: No Action omega-3 fatty acids [Fish Oil Concentrate] 1,000 mg capsule 1,000 mg PO DAILY cholecalciferol (vitamin D3) 100 mcg (4,000 unit) capsule 100 mcg PO DAILY turmeric 400 mg capsule 1,950 mg PO DAILY glucosamine HCl 500 mg tablet 500 mg PO DAILY Rx Instructions: administer with a meal montelukast 4 mg granules in packet 4 mg PO DAILY trazodone 50 mg tablet 200 mg PO DAILY albuterol sulfate 90 mcg/actuation HFA aerosol inhaler 2 puff Inhalation QID Patient Comments: INHALE 2 PUFFS PO QID methocarbamol 750 mg tablet 750 mg PO DAILY tamsulosin 0.4 mg capsule 0.4 mg PO DAILY testosterone enanthate 200 mg/mL oil 200 mg IM Q2W Trelegy Ellipta 100-62.5-25 mcg blister with device 1 inh INHALATION BID acetaminophen [Tylenol] 325 mg capsule 650 mg PO QID PRN (Reason: pain) Qty: 60 0RF methylprednisolone [Medrol (Tre)] 4 mg tablets,dose pack See Rx Instructions .ROUTE .COMPLEX Qty: 21 0RF Rx Instructions: orally per package directions lactulose 20 gram/30 mL solution 20 g PO BID Qty: 3000 0RF Referrals: Elinor Clark ARNP [Primary Care Provider] - Stand Alone Forms: Patient Portal/API
[2023-12-13 20:18] VITALS: BP 139/62; PULSE 85; RESP 19; TEMP 36.9; O2SAT 98
--- NOTE | 2023-12-19 12:06 | PC.NURSE ---
Late Entry- per RN the IV vancomycin was completed at 1999.
== END 2023-12-13 20:19 | disposition home or self-care (01) ==
PROVIDERS: Emergency Provider Emergency Medicine; Family Provider Student in an Organized Health Care Education/Training Program; PCP Registered Nurse
DX: M86.9 Osteomyelitis, unspecified (principal)
CPT/HCPCS: 96365; 99283; 99284

== ENCOUNTER 2023-12-14 06:12 | Emergency (ER) | payer OTHER, SELFPAY ==
--- NOTE | 2023-12-14 06:23 | ED_ITS ---
HPI - General Adult <Tracy Fer Phelps DO - Last Filed: 12/14/23 06:43> General Chief complaint: Recheck/Abnormal Lab/Rx Stated complaint: coming in for infusion Time Seen by Provider: 12/14/23 06:22 Source: patient, RN notes reviewed and old records reviewed Mode of arrival: Ambulatory Limitations: no limitations History of Present Illness HPI narrative: 62-year-old male with a history of recent osteomyelitis discharge from [facility]. Unclear patient has a PICC line in place with supposed to have vancomycin IV but somehow was not set up as outpatient. Patient represents for repeat dosing of vancomycin 12 50 mg IV, patient's primary care physician is in process of setting up for his infusions set up outpatient by this afternoon. Patient was also on oral metronidazole direction of Infectious Disease through [facility]. Related Data Home Medications Medication Instructions Recorded Confirmed albuterol sulfate 90 mcg/actuation 2 puff inhalation QID 07/09/18 09/25/20 aerosol inhaler cholecalciferol (vitamin D3) 100 100 mcg PO DAILY 06/25/20 09/25/20 mcg (4,000 unit) capsule glucosamine HCl 500 mg tablet 500 mg PO DAILY 06/25/20 09/25/20 montelukast 4 mg oral granules in 4 mg PO DAILY 06/25/20 09/25/20 packet omega-3 fatty acids 1,000 mg 1,000 mg PO DAILY 06/25/20 09/25/20 capsule (Fish Oil Concentrate) trazodone 50 mg tablet 200 mg PO DAILY 06/25/20 09/25/20 turmeric 400 mg capsule 1,950 mg PO DAILY 06/25/20 09/25/20 fluticasone fur. 100 mcg-umeclid 1 inh inhalation BID 06/30/20 09/25/20 62.5 mcg-vilant 25 mcg inhalat.powder (Trelegy Ellipta) methocarbamol 750 mg tablet 750 mg PO DAILY 06/30/20 09/25/20 tamsulosin 0.4 mg capsule 0.4 mg PO DAILY 06/30/20 09/25/20 testosterone enanthate 200 mg/mL 200 mg IM Q2W 06/30/20 09/25/20 intramuscular oil Previous Rx's Medication Instructions Recorded acetaminophen 325 mg capsule 650 mg (2 x 325 mg) PO QID PRN 06/30/20 (Tylenol) pain #60 caps methylprednisolone 4 mg tablets in See Rx Instructions PO .COMPLEX 11/13/23 a dose pack (Medrol (Tre)) #21 ea lactulose 20 gram/30 mL oral 20 g (30 mL) PO BID #3,000 mL 11/19/23 solution Allergies Allergy/AdvReac Type Severity Reaction Status Date / Time No Known Drug Allergies Allergy Verified 09/25/20 13:48 Review of Systems <Tracy Phelps DO - Last Filed: 12/14/23 06:43> Review of Systems ROS Unobtainable: All systems reviewed & are unremarkable except as noted in HPI and below Patient History <Tracy Phelps DO - Last Filed: 12/14/23 06:43> Medical History Asthma Surgical History S/P cervical spinal fusion H/O hernia repair Social History marital status: household members: spouse Smoking Status: Former smoker Tobacco: How many years used: 29 alcohol intake: current substance use type: does not use Smoking Status: Former smoker alcohol intake frequency: holidays/special occasions only Substance Use Type: does not use Exam <DO Javon Lopez Last Filed: 12/14/23 06:43> Narrative Exam Narrative: GENERAL: Alert and oriented x three, male in no acute distress. HEENT: Head normocephalic, atraumatic, EOMI, pupils reactive, face symmetric, moist mucous membranes NECK: Supple, full range of motion CARDIOVASCULAR: Regular rate and rhythm without murmurs, rubs or gallops. RESPIRATORY: Breath sounds equal bilaterally, no wheezes rales or rhonchi. ABDOMEN: Soft, nontender. Normoactive bowel sounds all 4 quadrants. No guarding or rebound, rigidity, no mass BACK: No cervical, thoracic or lumbar vertebral point tenderness. Patient has midline incision over the lower lumbar spine. Sutures are in place. Incision is clean, dry and intact without any erythema, signs of infection or dehiscence. Patient has good range of motion. Ambulated with a walker into the room. EXTREMITIES: Normal range of motion, no clubbing or edema. Neurovascularly intact NEUROLOGICAL: Cranial nerves II through XII grossly intact. Moving all extremities Initial Vital Signs Initial Vital Signs: Vital Signs Temperature 98.2 F 12/14/23 06:29 Pulse Rate 85 12/14/23 06:29 Respiratory Rate 18 12/14/23 06:29 Blood Pressure 130/75 12/14/23 06:29 Pulse Oximetry 98 12/14/23 06:29 Oxygen Delivery Method Room Air 12/14/23 06:29 <Jaylan Patel DO - Last Filed: 12/14/23 07:41> Initial Vital Signs Initial Vital Signs: Vital Signs Temperature 98.2 F 12/14/23 06:29 Pulse Rate 85 12/14/23 06:29 Respiratory Rate 18 12/14/23 06:29 Blood Pressure 130/75 12/14/23 06:29 Pulse Oximetry 98 12/14/23 06:29 Oxygen Delivery Method Room Air 12/14/23 06:29 Course <DO Javon Lopez Last Filed: 12/14/23 06:43> Orders Ordered: Discontinued Medications Vancomycin HCl (Vancomycin) 1,250 mg in 250 mls @ 250 mls/hr IV NOW ONE Stop: 12/14/23 07:21 Last Admin: 12/14/23 06:36 Dose: 250 mls/hr Documented By: Vital Signs Vital signs: Vital Signs - 8 hr 12/14/23 06:29 Temperature 98.2 F Pulse Rate 85 Respiratory Rate 18 Blood Pressure 130/75 Pulse Oximetry 98 Oxygen Delivery Method Room Air <DO Javon Sánchez Last Filed: 12/14/23 07:41> Orders Ordered: Discontinued Medications Vancomycin HCl (Vancomycin) 1,250 mg in 250 mls @ 250 mls/hr IV NOW ONE Stop: 12/14/23 07:21 Last Admin: 12/14/23 06:36 Dose: 250 mls/hr Documented By: Vital Signs Vital signs: Vital Signs - 8 hr 12/14/23 06:29 Temperature 98.2 F Pulse Rate 85 Respiratory Rate 18 Blood Pressure 130/75 Pulse Oximetry 98 Oxygen Delivery Method Room Air Medical Decision Making <DO Javon Lopez Last Filed: 12/14/23 06:43> MDM Narrative Medical decision making narrative: Patient presents for infusion of vancomycin while his infusions or being sitting outpatient. Patient we presents after being seen by myself last night for his repeat dose 12 hours later. Signed out to Dr. Patel while awaiting completion of infusion. <Jaylan Patel, DO - Last Filed: 12/14/23 07:41> [facility] Narrative Medical decision making narrative: Patient presents for infusion of vancomycin while his infusions or being sitting outpatient. Patient we presents after being seen by myself last night for his repeat dose 12 hours later. Signed out to Dr. Patel while awaiting completion of infusion. Dr patel: Received turned over. Patient has received his infusion of vancomycin without any reaction. Discharge home with return precautions. Discharge Plan Departure Patient Disposition: Home Clinical Impression: Osteomyelitis Activity Restrictions/Additional Instructions: Please return for any fevers, signs of infection your incision site, new back pain, new pain radiating down your legs, new numbness, tingling or weakness, new loss of bowel or bladder control, difficulty with ambulation, chest pain shortness of breath, hives or other new or concerning changes. Prescriptions: No Action omega-3 fatty acids [Fish Oil Concentrate] 1,000 mg capsule 1,000 mg PO DAILY cholecalciferol (vitamin D3) 100 mcg (4,000 unit) capsule 100 mcg PO DAILY turmeric 400 mg capsule 1,950 mg PO DAILY glucosamine HCl 500 mg tablet 500 mg PO DAILY Rx Instructions: administer with a meal montelukast 4 mg granules in packet 4 mg PO DAILY trazodone 50 mg tablet 200 mg PO DAILY albuterol sulfate 90 mcg/actuation HFA aerosol inhaler 2 puff Inhalation QID Patient Comments: INHALE 2 PUFFS PO QID methocarbamol 750 mg tablet 750 mg PO DAILY tamsulosin 0.4 mg capsule 0.4 mg PO DAILY testosterone enanthate 200 mg/mL oil 200 mg IM Q2W Trelegy Ellipta 100-62.5-25 mcg blister with device 1 inh INHALATION BID acetaminophen [Tylenol] 325 mg capsule 650 mg PO QID PRN (Reason: pain) Qty: 60 0RF methylprednisolone [Medrol (Tre)] 4 mg tablets,dose pack See Rx Instructions .ROUTE .COMPLEX Qty: 21 0RF Rx Instructions: orally per package directions lactulose 20 gram/30 mL solution 20 g PO BID Qty: 3000 0RF Referrals: Elinor Clark, [employer] [Primary Care Provider] - Stand Alone Forms: Patient Portal/API
[2023-12-14 06:29] VITALS: BP 130/75; PULSE 85; RESP 18; TEMP 36.8; O2SAT 98
[2023-12-14] MEDS: VANCOMYCIN 1,250 MG/250 ML PIGGYBACK 250 MG IV (06:36)
--- NOTE | 2023-12-14 07:29 | PC.NURSE ---
Assumed care of pt at 0700. Pt a&ox4. Denies any pain at this time.
--- NOTE | 2023-12-14 07:48 | PC.NURSE ---
PICC Line hospital protocol reviewed; recommended to flush with heparin lock (10 units/mL--5mL (50 units))
[2023-12-14 07:52] VITALS: BP 135/71; PULSE 81; RESP 20; TEMP 37; O2SAT 98
== END 2023-12-14 07:53 | disposition home or self-care (01) ==
PROVIDERS: Emergency Provider Emergency Medicine; Family Provider Student in an Organized Health Care Education/Training Program; PCP Registered Nurse
DX: M86.9 Osteomyelitis, unspecified (principal)
CPT/HCPCS: 96365; 99283; 99284; J1642

== ENCOUNTER → 2024-01-18 17:13 | Outpatient (CLI) | payer OTHER, SELFPAY ==
--- NOTE | 2024-01-18 17:14 | DI.MRI.S_ITS ---
PROCEDURE: MR LUMBAR SPINE WO/W CON INDICATIONS: OSTEOMYELITIS OF LUMBAR SPINE /S/P LUMBAR FUSION TECHNIQUE: Noncontrast sagittal T1 spin echo and T2 fast spin echo, sagittal STIR, axial T1 and T2 fast spin echo through the lumbar spine. In cases with scoliosis, additional coronal T2 fast spin echo may be performed. After the administration of contrast, sagittal and axial T1 spin echo with fat saturation through the lumbar spine. COMPARISON: [facility], CT, CT ABDOMEN PELVIS W CON, 11/19/2023, 3:37. [facility], MR, MR LUMBAR SPINE WO CON, 03/13/2023, 15:43. [facility], CT, CT LUMBAR SPINE WO CON, 11/18/2023, 23:59. FINDINGS: Image quality: Excellent Mild retrolisthesis of L1 on L2. Revision of posterior fusion instrumentation, now extends at L4-S1. Interval placement of interbody spacer at L4-5. Interbody spacer at L5-S1, unchanged from prior exam. There is diffuse marrow edema of L4 and L5 vertebral body. There is mild paravertebral enhancing soft tissue, concerning for paravertebral phlegmon. No significant amount of fluid within L4-5 intervertebral disc space. Vertebral body heights are well maintained. Multilevel disc desiccation. Conus terminates at the level of L1-2, and is unremarkable. Right neural foraminal stenosis: Mild at L4-5. Left neural foraminal stenosis: Mild at L4-5 and L5-S1. Axial images: T12-L1: No central canal stenosis. L1-2: No central canal stenosis. L2-3: No central canal stenosis. L4-5: Epidural lipomatosis. Mild bilateral facet arthropathy with ligamentum hypertrophy. Mild central canal stenosis. L4-5: Posterior decompression. No central canal stenosis. L5-S1: Disc bulge. Posterior decompression. No central canal stenosis. Visualized sacrum is intact. Bone harvesting site is seen in the left posterior iliac wing. No abdominal aortic aneurysm. Right renal cyst. 1.2 cm T2 hyperintense, and T1 hyperintense lesion in the midpole of right kidney (7:6) , likely representing a renal cyst when correlating with prior ultrasound on 06/13/2019. Small left renal cyst. IMPRESSION: 1. Interval revision posterior fusion instrumentation and interbody spacer at L4-S1. 2. Interval development of diffuse marrow edema of L4 and L5 vertebral body, with associated mild paravertebral soft tissue enhancement, likely representing patient's reported osteomyelitis. Limited evaluation for epidural phlegmon given associated metallic artifact. 3. Multilevel degenerative changes lumbar spine, most pronounced at L4-5, where there is mild central canal stenosis and mild bilateral neural foraminal stenosis. Dictated by: Sade Schwartz M.D. on 01/19/2024 at 9:56 Approved by: Sade Schwartz M.D. on 01/19/2024 at 10:16
== END ==
LOC: MRI 17:13
PROVIDERS: Family Provider Student in an Organized Health Care Education/Training Program; PCP Registered Nurse; Referring Provider Physician Assistant; Visit Provider Physician Assistant
DX: M46.26 Osteomyelitis of vertebra, lumbar region (principal); M47.816 Spondylosis without myelopathy or radiculopathy, lumbar region; M48.061 Spinal stenosis, lumbar region without neurogenic claudication; Z98.1 Arthrodesis status
CPT/HCPCS: 72158; A9579

== ENCOUNTER → 2024-04-22 06:48 | Outpatient (CLI) | payer OTHER, SELFPAY ==
--- NOTE | 2024-04-22 06:59 | DI.CT.S_ITS ---
PROCEDURE: CT LUMBAR SPINE WO CON INDICATIONS: S/P LUMBAR FUSION TECHNIQUE: Noncontrast 3 mm thick sections acquired from the T12 level to the sacrum. Sagittal and coronal reformats were constructed. For radiation dose reduction, the following was used: automated exposure control. COMPARISON: [facility], CT, CT LUMBAR SPINE WO CON, 11/18/2023, 23:59. FINDINGS: Image quality: Excellent. Bones: Straightening of the normal lumbar lordosis. L4 through S1 posterior spinal fixation hardware is redemonstrated. Hardware appears intact. L4-5 and L5-S1 diskectomy. No significant central canal stenosis is seen. Mild neural foraminal stenosis at L4-5 and L5-S1. No acute vertebral body compression fractures. No suspicious lytic or blastic bony lesions. No pars defects. Soft tissues: No retroperitoneal masses or hematomas. Visualized aorta is normal in caliber. Atherosclerotic vascular calcifications. IMPRESSION: Degenerative changes of the lumbar spine status post L4 through S1 posterior spinal fixation and discectomy with posterior decompression. No definite evidence of hardware complication. No significant central canal stenosis. Mild neural foraminal stenosis at L4-5 and L5-S1. Dictated by: Isaiah Du M.D. on 04/22/2024 at 13:17 Approved by: Isaiah Du M.D. on 04/22/2024 at 13:22
== END ==
LOC: CT 06:48
PROVIDERS: Family Provider Student in an Organized Health Care Education/Training Program; PCP Registered Nurse; Referring Provider Physician Assistant; Visit Provider Physician Assistant
DX: M47.816 Spondylosis without myelopathy or radiculopathy, lumbar region (principal); M47.817 Spondylosis without myelopathy or radiculopathy, lumbosacral region; M48.061 Spinal stenosis, lumbar region without neurogenic claudication; M48.07 Spinal stenosis, lumbosacral region; Z98.1 Arthrodesis status
CPT/HCPCS: 72131

== ENCOUNTER → 2024-09-05 18:36 | Outpatient (CLI) | payer MEDICARE, SELFPAY ==
--- NOTE | 2024-09-05 | DI.MRI.S_ITS ---
PROCEDURE: MR HEAD/BRAIN WO/W CON INDICATIONS: NEWHYPERCONNETIC MOVMENT DISORDER TECHNIQUE: Noncontrast axial T1 spin echo, axial T2 fast spin echo, sagittal and axial FLAIR, coronal T2 fast spin echo, axial gradient echo, axial diffusion and ADC through the brain. After the administration of contrast, axial and coronal and sagittal 3D VIBE or T1 spin echo with fat saturation through the brain. COMPARISON: None. FINDINGS: Image quality: Excellent. CSF Spaces: Basal cisterns are patent. No extra-axial fluid collections. Ventricles are normal in size and shape. Brain: No midline shift. No intracranial bleeds or masses. No abnormal intracranial enhancement. The brainstem appears normal. Diffusion-weighted images demonstrate no acute infarct. No chronic ischemic insults. Normal intravascular flow voids are present. Mild scattered areas periventricular and subcortical white matter hyperintensity are present. Skull and face: Calvarial marrow is normal in signal. Orbits appear normal. Sinuses: Sinuses and mastoids appear clear. IMPRESSION: 1. No acute intracranial process. 2. Scattered areas of mild periventricular and subcortical white matter hyperintensities. These are suggestive of early chronic microvascular ischemic change. Dictated by: Sandra Fernando M.D. on 09/06/2024 at 11:30 Approved by: Sandra Fernando M.D. on 09/06/2024 at 11:31
== END ==
PROVIDERS: Family Provider Student in an Organized Health Care Education/Training Program; PCP Registered Nurse; Referring Provider Psychiatry & Neurology Neurology; Visit Provider Psychiatry & Neurology Neurology
DX: F95.9 Tic disorder, unspecified (principal); R25.9 Unspecified abnormal involuntary movements
CPT/HCPCS: 70553; A9579

== ENCOUNTER → 2025-03-11 08:07 | Outpatient (CLI) | payer MEDICARE, SELFPAY ==
--- NOTE | 2025-03-11 08:08 | DI.MRI.S_ITS ---
PROCEDURE: MR LUMBAR SPINE WO CON
== END ==
LOC: MRI 08:07
PROVIDERS: Family Provider Student in an Organized Health Care Education/Training Program; PCP Registered Nurse; Referring Provider Registered Nurse; Visit Provider Registered Nurse
DX: M54.16 Radiculopathy, lumbar region (principal); M48.061 Spinal stenosis, lumbar region without neurogenic claudication; G25.3 Myoclonus; Z98.1 Arthrodesis status
CPT/HCPCS: 72148